=== PATIENT | female | born 1970 | race Caucasian/White ===

== ENCOUNTER 2018-01-30 13:17 | Outpatient (CLI) | payer OTHER ==
--- NOTE | 2018-01-30 16:19 | ULT ---
RIGHT BREAST ULTRASOUND: 01/30/18 HISTORY: Palpable mass at 6 o'clock position of the right breast. TECHNIQUE: Multiplanar jauregui scale and color doppler images were obtained in a targeted ultrasound of the 6 o'sayda ck position of the right breast. FINDINGS: Normal appearing breast parenchyma is seen. No suspicious mass or shadowing is seen. No cyst is ident ified. IMPRESSION: BIRADS 1: Negative Routine annual screening mammography (for women over age 40) POS: ELIZABETH
== END 2018-01-30 13:18 | disposition home or self-care (01) ==
LOC: BICMAMMO 13:17
PROVIDERS: ATTEND Family Medicine
DX: N63.11 Unspecified lump in the right breast, upper outer quadrant (principal); R92.1 Mammographic calcification found on diagnostic imaging of breast; Z80.3 Family history of malignant neoplasm of breast
CPT/HCPCS: 77066; G0279

== ENCOUNTER 2018-07-20 06:19 | Day surgery (SDC) | payer OTHER ==
[2018-07-17 12:22] VITALS: BMI 22.8
[2018-07-20] MEDS ORDERED: Fentanyl 100 MCG/2 ML VIAL ONE (07:23)
[2018-07-20] MEDS ORDERED: Midazolam HCl 2 mg/2 ml Vial ONE ×2 (07:23→08:51)
[2018-07-20] MEDS ORDERED: Nitroglycerin 100MG/250ML BOT 250 ML ONE (08:33)
[2018-07-20] MEDS ORDERED: Verapamil 5 MG/2 ML VIAL ONE (08:33)
[2018-07-20] MEDS ORDERED: Heparin 10,000 UNITS/1 ML VIAL ONE (08:33)
[2018-07-20] MEDS ORDERED: Iopamidol 370 76% 100 ML VIAL ONE (10:54)
--- NOTE | 2018-07-20 13:44 | DIS ---
DATE OF ADMISSION: 07/20/2018 DATE OF DISCHARGE: 07/20/2018 HISTORY OF PRESENT ILLNESS: She was admitted to undergo an elective cardiac catheterization as she continued to have chest discomfort despite having an indeterminate cardiac stress test. It did not show any significant ischemia, but there was some decreased radioactive tracer uptake in the anterior wall, and due to her continued complaints of chest discomfort, she was advised to undergo cardiac catheterization. She was taken to the cardiac chemical lab technician, where she underwent the procedure today and was found to have normal coronary arteries with a normal left ventricular systolic function. Her other diagnoses include hypertension and hypothyroidism. She does have some varicose veins in lower extremities. She also has anxiety. DISCHARGE MEDICATIONS: The same as her admission medications, which include: 1. Metoprolol 50 mg one b.i.d. 2. Xanax 0.5 mg as needed, one every 2 to 3 days. 3. Nexium 24-hour 20 mg tablet once a day. 4. Tirosint 75 mcg capsules once a day. 5. Butalbital/aspirin/caffeine 50/325/40 two tablets every 6 hours p.r.n., not to exceed 6 capsules in 24 hours. 6. Cyclobenzaprine 10 mg one daily. 7. Liothyronine sodium 5 mcg tablet, take three tablets every day. 8. Belviq XR 20 mg tablets one daily. 9. Zyrtec 10 mg daily. FOLLOWUP: Follow up will be with me in 1 to 2 months in the office. She will continue her routine followups with her primary care physician, Dr. Miller. PROCEDURES IN THE HOSPITAL: Cardiac catheterization, left ventriculogram, and coronary arteriography. HOSPITAL COURSE: As noted, this is a 48-year-old female who continued to have some chest discomfort despite having what appeared to be a nonischemic stress test. She did have some abnormalities with decreased radioactive uptake in the anterior wall, which seemed to have improved with stress. Due to her continued complaints of chest discomfort and history of hypertension, she was advised to undergo a cardiac catheterization. This was performed in the hospital today without difficulties or complication using a radial artery approach. There were no complications or difficulties encountered. The coronary arteries were found to be normal and the left ventricular systolic function also was normal. She remained stable. She will be discharged to home within the next 2 to 3 hours. Job ID: [id number] [facility]
--- NOTE | 2018-07-21 21:02 | EKG ---
Test Reason : PREOP Blood Pressure : / mmHG Vent. Rate : 065 BPM Atrial Rate : 065 BPM P-R Int : 166 ms QRS Dur : 084 ms QT Int : 404 ms P-R-T Axes : 037 044 054 degrees QTc Int : 420 ms Normal sinus rhythm Normal ECG When compared with ECG of 16-NOV-2014 15:41, No significant change was found Confirmed by DEYANIRA CAPPS, DR. Lea ([id number]) on 07/21/2018 9:01:58 PM Referred By: CHER Confirmed By:DR. Leonora MCMILLAN MD
== END 2018-07-20 12:38 | disposition home or self-care (01) ==
LOC: CCL 06:19
PROVIDERS: ATTEND Internal Medicine Cardiovascular Disease
PROC: B2101ZZ Fluoroscopy of Single Coronary Artery using Low Osmolar Contrast (ICD-10-PCS; principal; 2018-07-20)
PROC: 4A023N7 Measurement of Cardiac Sampling and Pressure, Left Heart, Percutaneous Approach (ICD-10-PCS; principal; 2018-07-20)
DX: R07.9 Chest pain, unspecified (principal); I10 Essential (primary) hypertension; I83.92 Asymptomatic varicose veins of left lower extremity; E78.00 Pure hypercholesterolemia, unspecified; Z91.09 Other allergy status, other than to drugs and biological substances; Z91.040 Latex allergy status; Z88.5 Allergy status to narcotic agent; Z79.899 Other long term (current) drug therapy
CPT/HCPCS: 93005; 93010; 93458; 99152; 99153; C1769; J1644; J2250; J3010; Q9967

== ENCOUNTER 2019-01-06 07:53 | Outpatient (CLI) | payer OTHER ==
--- NOTE | 2019-01-06 08:45 | CT ---
EXAM: CT chest, abdomen, and pelvis with IV contrast: HISTORY: Squamous cell carcinoma the anus. Bloody stool. COMPARISON: CT abdomen and pelvis on 04/05/2015 FINDINGS: CT THORAX: Lungs: There are minimal scattered areas of atelectasis versus scarring predominantly at each lung ba se. No discrete pulmonary nodule or mass is seen. Pleura: No pleural effusion. Lymph nodes: No lymphadenopathy. Mediastinum: Thoracic aorta is normal in caliber without evidence of an aortic dissection. Chest wall: There are 2 tiny punctate gas densities seen within the medial aspect of each breast of u ncertain etiology. CT ABDOMEN AND PELVIS: Liver: A 2.8 cm hypodense mass with nodular peripheral enhancement is again seen in the posterolatera l medial aspect of the right hepatic lobe suggesting a hemangioma. No additional lesions are seen in the liver. Gallbladder: Within normal limits. \ Pancreas: Within normal limits. Spleen: Within normal limits. Adrenal glands: Within normal limits. Kidneys: Within normal limits. Urinary Bladder: The urinary bladder is unremarkable. Reproductive organs: Evidence of hysterectomy. Bowel: Normal in caliber. Patient's reported anal neoplasm is not well visualized on this exam. Adenopathy:No lymphadenopathy within the abdomen or pelvis. There are low-density structures seen at the lateral aspect of the pelvis bilaterally which are probably related to the patient's ovaries as opposed to enlarged lymph nodes. Peritoneum: No free fluid or fluid collection is seen. No free intraperitoneal gas is identified. Abdominal wall: Tiny fat-containing umbilical hernia is present. Osseous structures: No suspicious lytic or sclerotic osseous lesions are identified. IMPRESSION: 1. No CT findings to suggest metastatic disease. 2. Findings likely related to a hemangioma in the right hepatic lobe. This was also present on prior exam in 2014. 3. Punctate gas densities within the medial aspect of each breast of uncertain etiology. 4. Hysterectomy.
== END 2019-01-06 07:54 | disposition home or self-care (01) ==
LOC: BICCT 07:53
PROVIDERS: ATTEND Internal Medicine
DX: C21.1 Malignant neoplasm of anal canal (principal); Z90.710 Acquired absence of both cervix and uterus; N64.89 Other specified disorders of breast
CPT/HCPCS: 71260; 74177

== ENCOUNTER 2019-01-14 12:00 | Outpatient (CLI) | payer OTHER ==
--- NOTE | 2019-01-14 15:43 | PET ---
EXAM: PET CT skull to mid thigh COMPARISON: CT chest abdomen pelvis 01/06/2019 HISTORY: Malignant neoplasm of the anal canal TECHNIQUE: A PET/CT was performed from the skull to the mid thigh after administration of 13.0 millic uries of F-18 FDG. Evaluation was performed on a [employer] workstation. FINDINGS: NECK: No areas of hypermetabolic activity CHEST: No areas of hypermetabolic activity ABDOMEN/PELVIS: Focal hypermetabolic activity is seen in the region of the anus with a max SUV value of 10.0. This likely represents the patient's known anal cancer. No other areas of hypermetabolic activity SKELETON: No areas of hypermetabolic activity CT images used for attenuation correction show no significant abnormality. IMPRESSION: Hypermetabolic activity in the anus represents the patient's known anal cancer. There is no evidence of metastatic disease.
== END 2019-01-14 12:01 | disposition home or self-care (01) ==
LOC: PET 12:00
PROVIDERS: ATTEND Internal Medicine Hematology & Oncology
DX: C21.1 Malignant neoplasm of anal canal (principal)
CPT/HCPCS: 36415; 78815; 80053; 82248; 83615; 84100; 84550; A9552

== ENCOUNTER 2019-01-19 05:54 | Day surgery (SDC) | payer OTHER ==
[2019-01-18 12:42] VITALS: BMI 21.7
--- NOTE | 2019-01-18 14:15 | HP ---
HISTORY OF PRESENT ILLNESS: Ms. Bridgett Hernandez is a 48-year-old female, seen by Dr. Miller, who referred to Dr. Nash for her complaints of perianal bleeding and discomfort. She thought this was hemorrhoids. Cologuard was positive. Colonoscopy revealed a perianal lesion. Biopsy squamous cell carcinoma with superficial invasion. She had a CAT scan of the abdomen and chest that is normal. A PET scan that was normal, except for perianal disease. 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 ALLERGIES: TRAMADOL, VICODIN CAUSES ITCHING AND TINGLING. SHE CAN HOWEVER TAKE TYLENOL NO.3. THE PATIENT IS ALLERGIC TO LATEX IN ADDITION. TOBACCO: None. ALCOHOL: None. MEDICATIONS: 1. Levothyroxine 75 mcg a day. 2. . 3. Metoprolol 50 mg b.i.d. 4. Nexium 20 mg daily. 5. Xanax 0.5 mg p.r.n. anxiety. 6. caffeine p.r.n. headache, migraine. 7. Zofran 8 mg p.r.n. 8. Flexeril 10 mg p.r.n. 9. Sumatriptan 50 mg p.r.n. headache. 10. Lasix 20 mg a day. PAST SURGICAL HISTORY: Breast reduction recently by Dr. Christina Bennett; rotator cuff, right, surgery; hysterectomy without oophorectomy, laparoscopic assisted vaginal, 2009. PAST MEDICAL HISTORY: Anxiety, GERD, hypertension, hypothyroidism, treated medically. REVIEW OF SYSTEMS: Ten-point noncontributory. The patient had a cardiac stress test with Dr. Hill in early 2018, that is normal. Echocardiogram was normal. PHYSICAL EXAMINATION: VITAL SIGNS: Weight 134 pounds, height 5 feet 6 inches, 21 BMI, blood pressure 129/72, pulse rate 82, temperature 98.6 degrees. HEAD, EYES, EARS, NOSE, AND THROAT: Unremarkable. LUNGS: Clear to auscultation. CARDIAC: Regular rate and rhythm. No murmur or gallop. ABDOMEN: Soft and nontender. Groins without lymphadenopathy. EXTREMITIES: Unremarkable. : I did not examine her perianal area. ASSESSMENT AND PLAN: 1. Squamous cell carcinoma of the anus. MediPort placement low-profile. She understands risks and benefits and consents. 2. Hypertension. 3. Gastroesophageal reflux disease. 4. Anxiety. 5. Status post recent breast reduction. Job ID: [id number]
[2019-01-19] MEDS ORDERED: Fentanyl 100 MCG/2 ML VIAL ONE (06:33)
[2019-01-19] MEDS ORDERED: Bupivacaine HCl 0.5%/Epinephrine 1:200,000/PF 30 ml Vial ONE (06:49)
[2019-01-19] MEDS ORDERED: Lidocaine 2% PF 5 ML VIAL ONE ×2 (06:49)
[2019-01-19] MEDS ORDERED: PROPOFOL 40 ML ONE (06:52)
[2019-01-19] MEDS ORDERED: Midazolam HCl 2 mg/2 ml Vial ONE (07:02)
--- NOTE | 2019-01-19 08:14 | RAD ---
Portable chest: HISTORY: Mediport placement COMPARISON: none FINDINGS: Lung sanz are clear. Heart and mediastinum appear unremarkable. Vascularity is normal. Visualized osseous structures unremarkable. Mediport catheter is been placed. The right subclavian vein. Tip of the line overlies the SVC. Cathet er appears in adequate position. IMPRESSION: No acute finding
--- NOTE | 2019-01-19 12:41 | OP ---
DATE OF PROCEDURE: 01/19/2019 PREOPERATIVE DIAGNOSIS: Anal cancer. POSTOPERATIVE DIAGNOSIS: Anal cancer. PROCEDURE PERFORMED: Right subclavian vein MediPort, fluoroscopy used, low-profile MediPort. ANESTHESIA: local of 0.5% Marcaine with epinephrine 30 mL mixed with 2% Xylocaine 10 mL. DESCRIPTION OF PROCEDURE: The patient was taken to the operating room, where under chest and neck were prepared with ChloraPrep and draped in routine fashion. Local anesthetic was infiltrated in the skin and subcutaneous tissue about the operative site. Infraclavicular approach was used to cannulate the right subclavian vein threading the J-wire, removing the trocar catheter, enlarging the skin site sharply, and creating a subcutaneous pocket to accommodate the MediPort. A low-profile MediPort was inserted by placing the dilator and Peel-Away sheath over the J-wire in the superior vena cava. Dilator and J-wire were removed. Catheter was placed over the Peel-Away sheath. Peel-Away sheath was removed. Fluoroscopically, catheter tip was placed in optimal position in the superior vena cava, and catheter was tailored to length, connected to the MediPort which was placed in the subcutaneous pocket, and secured with 2 interrupted suture of 3-0 Prolene. Subcutaneous tissue was approximated with 3-0 Monocryl, skin with subdermal 4-0 Monocryl. Final fluoroscopic images revealed good MediPort line placement. MediPort was accessed with a Lester needle aspirating blood and flushing with heparinized saline solution. The patient tolerated the procedure well. Job ID: [id number]
[2019-01-19] MEDS ORDERED: Ketorolac Tromethamine 30 MG/ML VIAL ONE (13:57)
[2019-01-19] MEDS ORDERED: PROPOFOL 200 MG/20 ML VIAL ONE (13:57)
[2019-01-19] MEDS ORDERED: Ondansetron PF 4 MG/2 ML Vial ONE (13:57)
[2019-01-19] MEDS ORDERED: Dexamethasone 20 MG/5 ML VIAL ONE (13:57)
== END 2019-01-19 08:50 | disposition home or self-care (01) ==
LOC: SDC 05:54
PROVIDERS: ATTEND Specialist
PROC: 05H533Z Insertion of Infusion Device into Right Subclavian Vein, Percutaneous Approach (ICD-10-PCS; principal; 2019-01-19)
DX: C21.0 Malignant neoplasm of anus, unspecified (principal); I10 Essential (primary) hypertension; E03.9 Hypothyroidism, unspecified; F41.9 Anxiety disorder, unspecified; K21.9 Gastro-esophageal reflux disease without esophagitis; Z79.899 Other long term (current) drug therapy; Z88.5 Allergy status to narcotic agent; Z91.040 Latex allergy status; Z91.048 Other nonmedicinal substance allergy status
CPT/HCPCS: 71045; C1788; J0131; J0670; J0690; J1100; J1642; J1885; J2001; J2250; J2405; J2704; J3010

== ENCOUNTER 2019-03-15 13:40 | Inpatient (IN) | payer OTHER ==
[2019-03-15] MEDS: Dextrose 5 % And 0.9 % NaCl 1,000 ML IV SCH (14:49)
[2019-03-15] MEDS: Lorazepam 2 MG/ML VIAL SLOW IVP PRN (14:56)
[2019-03-15] MEDS ORDERED: Morphine 2 MG/ML SYRINGE SLOW IVP PRN (15:56)
[2019-03-15] MEDS ORDERED: Acetaminophen 650 MG Suppository PR PRN (16:14)
[2019-03-15] MEDS ORDERED: Ondansetron ODT 4 MG TAB PO PRN ×2 (16:14→19:22)
[2019-03-15 16:17] LABS: #Lymphocytes 0.2 thou/uL (1.20-3.40); #Neutrophils 1.2 thou/uL (1.40-6.50); %Basophils 0.4 % (0.0-1.0); %Eosinophils 0.4 % (0.0-10.0); %Lymphocytes 11.8 % (21.0-51.0); %Monocytes 0.7 % (0.0-10.0); %Neutrophils 86.8 % (42.0-75.0); Hemoglobin 8.2 g/dL (12.0-16.0); Mean Corpuscular Hemoglobin 31.6 pg (27.0-31.0); Mean Corpuscular Volume 90.2 fL (78.0-98.0); Mean Platelet Volume 6.1 fL (7.4-10.4); Platelet Count 171 thou/uL (130-400); RBC Distribution Width 13.3 % (11.5-14.5); Red Blood Cell (RBC) Count 2.59 mill/uL (4.20-5.40); White Blood Cell (WBC) Count 1.4 thou/uL (4.8-10.8)
[2019-03-15] MEDS ORDERED: ALPRAZolam 0.5 MG TAB PO PRN (16:17)
[2019-03-15] MEDS ORDERED: Aquaphor 30 GM JAR TOP SCH (16:30)
[2019-03-15 16:39] LABS: ALT (SGPT) 30 U/L (8-55); AST (SGOT) 20 U/L (5-34); Albumin 2.8 g/dL (3.5-5.0); Alkaline Phosphatase 171 U/L (40-110); Anion Gap 10 mmol/L (10-20); BUN (Urea Nitrogen) 5 mg/dL (9.8-20.1); Bilirubin, Total 0.4 mg/dL (0.2-1.2); Calc. Creatinine Clearance 109 mL/min (70-130); Calcium 8.1 mg/dL (7.8-10.44); Carbon Dioxide 23 mmol/L (22-29); Chloride 105 mmol/L (98-107); Estimated GFR-MDRD Greater than 90; Globulin 2.4 g/dL (2.4-3.5); Glucose 158 mg/dL (70-105); Potassium 3.9 mmol/L (3.5-5.1); Protein, Total 5.2 g/dL (6.0-8.3); Sodium 134 mmol/L (136-145)
[2019-03-15] MEDS: Ondansetron PF 4 MG/2 ML Vial IVP PRN (16:59)
[2019-03-15 17:14] LABS: Lactic Acid 0.5 mmol/L (0.5-2.2)
--- NOTE | 2019-03-15 19:12 | RAD ---
PA AND LATERAL CHEST: HISTORY: Lower respiratory tract infection. FINDINGS: The heart size is normal. The lungs are well expanded without focal areas of consolidation, pneumotho races or pleural effusions. There is a right-sided Port-A-Cath. This was also seen on the exam of 04/2018. IMPRESSION: No radiographic evidence of acute cardiopulmonary process. POS: H
[2019-03-15 19:41] LABS: Bilirubin Negative (Negative); Blood, Urine Negative (Negative); Clarity Clear (Clear); Glucose, Urine (Dipstick) Normal (Negative); Leukocyte 75 Leu/uL (Negative); Nitrite Negative (Negative); Protein, Urine (Dipstick) Negative (Neg-Trace); RBC/HPF 0-3 HPF (0-3); Squamous Epithelial 0-3 HPF (0-3); Urobilinogen Normal mg/dL (Less than 2)
[2019-03-15 19:42] LABS: Bacteria/HPF 1+ HPF (None Seen)
[2019-03-15 19:43] LABS: Urine Culture Reflex Yes Yes
[2019-03-15] MEDS: Morphine 2 MG/ML SYRINGE SLOW IVP PRN ×2 (20:16→22:04)
[2019-03-15] MEDS: Promethazine HCl 25 MG/ML VIAL IM/IV PRN (20:16)
[2019-03-15] MEDS: Famotidine/PF 20 mg/2ml Vial SLOW IVP SCH (20:16)
[2019-03-15] MEDS: Hydrocortisone/Pramoxine (Proctofoam HC) 10 GM BOX PR SCH (20:17)
--- NOTE | 2019-03-15 20:45 | HP ---
TIME OF ASSESSMENT: 1500 hours. CHIEF COMPLAINT: Nausea, vomiting, and rectal pain. HISTORY OF PRESENT ILLNESS: Ms. Hernandez is a pleasant 49-year-old woman, who presents to the Emergency Department after being evaluated by Dr. Lo in clinic due to persisting nausea, vomiting, and suspected dehydration. The patient apparently has required multiple infusions of IV fluids due to persistent nausea and vomiting that has been ongoing since she started her treatment. She has known history of squamous cell carcinoma of the anus and has completed radiation therapy. She recently completed her last chemotherapy treatment as well and was receiving 5-FU, mitomycin. She states the 5-FU was disconnected on Friday. Over the weekend, the patient has been feeling increasingly worse. She states she vomited all of Friday and continued to vomit for almost 24 hours straight to the point that she had nothing else to vomit and was dry heaving excessively. Denies any hematemesis. Reports having loose stools as well. The patient states she was recently diagnosed with a urinary tract infection and was receiving oral antibiotic treatment with ciprofloxacin. She has not yet completed the Cipro. She denies having any urinary symptoms. The patient states she feels overall weak and tired. She has been sedentary in the last 2 to 3 days and for the last 24 hours has been mostly in bed. She has been feeling chills. Denies having any fevers. No cough or hemoptysis. Denies any chest pain. No abdominal pain, but does report significant pain associated with raw skin changes in the perirectal region due to radiation. She manages this with Aquaphor and cold rags. Denies having any blood in her stool. She has been feeling lightheaded and weak when standing. Her blood pressure has been on the lower side. Therefore, she was advised to hold her metoprolol, which she was recently started on for hypertension. PAST MEDICAL HISTORY: 1. Anal cancer. 2. Anxiety. 3. GERD. 4. Hypertension. 5. Hypothyroidism. PAST SURGICAL HISTORY: 1. Breast reduction. 2. Right rotator cuff surgery. 3. Hysterectomy without oophorectomy. 4. Laparoscopic-assisted vaginal. 5. Port-A-cath placement, right-sided. SOCIAL HISTORY: The patient denies any tobacco use, alcohol consumption, or illicit drug use. She lives with her . ALLERGIES: ADHESIVE, HYDROCODONE, AND LATEX. CURRENT MEDICATIONS: 1. Alprazolam. 2. Butalbital/aspirin/caffeine. 3. Ciprofloxacin. 4. Lomotil. 5. Esomeprazole. 6. Levothyroxine. 7. Ondansetron. 8. Aquaphor. 9. Tramadol. PHYSICAL EXAMINATION: GENERAL: The patient appears well-developed, well-nourished, and she is in no acute distress. VITAL SIGNS: Temperature 98.3, pulse 116, blood pressure 128/72, respirations 16, and O2 saturation 100% on room air. HEENT: Normocephalic and atraumatic. Pupils are equal, round, and reactive to light. The patient appears pale. Oropharynx is clear. NECK: Supple. LUNGS: Clear to auscultation bilaterally without wheezes, rales, or rhonchi. CARDIAC: Regular rate and rhythm without audible murmurs, rubs, or gallops. ABDOMEN: Soft, nontender, nondistended. Normoactive bowel sounds present. EXTREMITIES: No lower leg swelling or edema. RECTAL: Perirectal region notable for moist skin desquamation. No active bleeding or discharge. NEUROLOGIC: Alert and oriented x3. SKIN: Warm and dry. IMPRESSION AND PLAN: Ms. Hernandez is a 49-year-old woman with known anal cancer, being admitted for management of the following. 1. Persistent nausea, vomiting. The patient states this started after her 5-FU was disconnected. She states she does receive medications before chemo including steroids which help her feel better. However, once 5-FU pump is removed, she tends to have persistent nausea and vomiting. We will continue with antiemetics. Continue with IV fluids, given presumed dehydration from persistent vomiting. We will check electrolytes. If symptoms persist might consider imaging of the brain to rule out any possible brain metastases contributing to the persistent nausea, vomiting those seem to be associated with timing of treatment. 2. Presumed dehydration. Again, we will continue with IV fluids. We will check orthostatic blood pressures. 3. We will check labs including renal function. 4. Diarrhea. The patient has had persistent watery stools. She has been on antibiotics for urinary tract infection. We will obtain stool studies including Clostridium difficile, though it is also likely associated with her treatment. 5. Generalized weakness. Consultation placed to PT/OT. 6. Anal cancer. The patient has completed chemoradiation therapy. She does have skin changes due to radiation, which she usually manages with Aquaphor. We will add Proctofoam as well. 7. The patient states she is unable to tolerate most p.o. pain medications. We will give morphine 1 mg q.4 hours, but we will need to monitor her blood pressure which was low previously. 8. Gastrointestinal prophylaxis. Famotidine. 9. Urinary tract infection. The patient recently on Cipro. We will obtain urinalysis and urine culture. We will add lactic acid to her labs. Hold on any further antibiotics until we obtain urinalysis. The patient offered PureWick or Valente to help minimize contact of urine to her perirectal skin, which is irritated. The patient refused. 10. Hypothyroidism. We will resume home medications once verified. 11. Hypertension. In light of low blood pressures, we will hold for now. 12. Code status full. Surrogate decision maker is her , Patrick Hernandez. The patient's case discussed with attending who agrees with plan of care as described above. Job ID: [id number]
[2019-03-16] MEDS: Morphine 2 MG/ML SYRINGE SLOW IVP PRN ×3 (01:19→21:03)
[2019-03-16] MEDS: Dextrose 5 % And 0.9 % NaCl 1,000 ML IV SCH ×3 (01:23→19:38)
[2019-03-16] MEDS: Lorazepam 2 MG/ML VIAL SLOW IVP PRN ×3 (01:29→19:37)
[2019-03-16] MEDS: Levothyroxine Sodium 75 MCG TAB PO SCH (05:53)
[2019-03-16] MEDS: Liothyronine Sodium 5 MCG TAB PO SCH (05:59)
[2019-03-16] MEDS: Promethazine HCl 25 MG/ML VIAL IM/IV PRN ×3 (06:25→19:37)
[2019-03-16] MEDS: Famotidine/PF 20 mg/2ml Vial SLOW IVP SCH ×2 (08:22→19:38)
[2019-03-16] MEDS: Hydrocortisone/Pramoxine (Proctofoam HC) 10 GM BOX PR SCH ×3 (08:32→19:39)
[2019-03-16] MEDS ORDERED: cefTRIAXone Sodium 2 MG in Syringe 0 ML IVPB SCH (09:45)
[2019-03-16] MEDS ORDERED: cefTRIAXone\\ROCEPHIN 2 GM in Sodium Chloride 0.9% 100 ML IVPB SCH (10:00)
[2019-03-16] MEDS: Ondansetron PF 4 MG/2 ML Vial IVP PRN ×2 (10:33→16:56)
--- NOTE | 2019-03-16 12:15 | PDOC.MOPN ---
Interval History: marginally better - Vital Signs Vital Signs: Vital Signs (12 hours) Temp Pulse Resp BP BP BP Pulse Ox 03/16/19 07:47 98.6 F 97 16 106/65 106/65 106/69 100 03/16/19 04:00 98.6 F 97 16 111/66 100 Weight Weight 125 lb 6.4 oz - Physical Exam General: Alert, Oriented x3 Lungs: Clear to auscultation Cardiovascular: Regular rate Abdomen: Soft, No tenderness Extremities: No clubbing Skin: No rashes - Labs Result Diagrams: 03/15/19 16:02 03/15/19 16:02 Lab results: Laboratory Results - last 24 hr 03/15/19 18:37: Urine Color Light-Yellow, Urine Clarity Clear, Urine pH 6.5, Ur Specific [place] 1.009, Urine Protein Negative, Urine Glucose (UA) Normal, Urine Ketones 20 A, Urine Blood Negative, Urine Nitrite Negative, Urine Bilirubin Negative, Urine Urobilinogen Normal, Ur Leukocyte Esterase 75 A, Urine RBC 0-3, Urine WBC 7-10 A, Ur Squamous Epith Cells 0-3, Urine Bacteria 1+ A, Urine Culture Reflexed Yes A 03/15/19 16:42: Lactic Acid 0.5 03/15/19 16:02: WBC 1.4 L, RBC 2.59 L, Hgb 8.2 L, Hct 23.4 L, MCV 90.2, MCH 31.6 H, MCHC 35.0, RDW 13.3, Plt Count 171, MPV 6.1 L, Neutrophils % 86.8 H, Neutrophils % (Manual) Not Reportable, Lymphocytes % 11.8 L, Monocytes % 0.7, Eosinophils % 0.4, Basophils % 0.4, Neutrophils # 1.2 L, Lymphocytes # 0.2 L, Monocytes # 0.0 L, Eosinophils # 0.0, Basophils # 0.0 03/15/19 16:02: Sodium 134 L, Potassium 3.9, Chloride 105, Carbon Dioxide 23, Anion Gap 10, BUN 5 L, Creatinine 0.55 L, Estimated GFR (MDRD) Greater than 90 , Glucose 158 H, Calcium 8.1, Total Bilirubin 0.4, AST 20, ALT 30, Alkaline Phosphatase 171 H, Serum Total Protein 5.2 L, Albumin 2.8 L, Globulin 2.4, Albumin/Globulin Ratio 1.2 A/P - Problem (1) Vomiting Current Visit: Yes Code(s): R11.10 - VOMITING, UNSPECIFIED Status: Acute (2) Anal cancer Current Visit: Yes Code(s): C21.0 - MALIGNANT NEOPLASM OF ANUS, UNSPECIFIED Status: Acute (3) Diarrhea Current Visit: Yes Code(s): R19.7 - DIARRHEA, UNSPECIFIED Status: Acute - Plan Plan: 1. PPN and IVF 2. agree with [employer] dictated note 3. cont imodium 4. continue aquaphor and paste to anal skin, discuss with rad onc
[2019-03-16] MEDS: Amino Acids 4.25 %/Dextrose 5% 1,000 ML IV SCH (12:42)
[2019-03-16 15:13] VITALS: BMI 20.1
--- NOTE | 2019-03-16 15:55 | PDOC.HOSPP ---
- Subjective Subjective: Seen and examined in oncology unit. Patient not feeling much better or worse. Still with nausea and no appetite. Tried to keep some broth down. Patient states that ever since radiation was initiated in January she has progressively felt worse and worse. After first round chemotherapy she did have significant nausea and vomiting and states that it did not improve after any period of time. Patient on IV fluids for dehydration. Started antibiotics for urinary tract infection. Patient states that she was given ciprofloxacin for urinary tract infection however she was unable to keep this medication down and urinary tract infection was not adequately treated. Time was given for questions, All questions answered in detail. - Objective Vital Signs & Weight: Vital Signs (12 hours) Temp Pulse Resp BP BP BP BP 03/16/19 12:17 100.3 F H 118 H 18 120/64 03/16/19 09:00 98.6 F 97 16 106/65 03/16/19 08:00 98.6 F 97 16 106/65 03/16/19 07:47 98.6 F 97 16 106/65 106/65 106/69 03/16/19 04:00 98.6 F 97 16 111/66 Pulse Ox 03/16/19 12:17 100 03/16/19 09:00 100 03/16/19 08:00 100 03/16/19 07:47 100 03/16/19 04:00 100 Weight Admit Weight 125 lb 6.4 oz Weight 125 lb I&O: 03/15/19 03/16/19 03/17/19 06:59 06:59 06:59 Intake Total 120 Balance 120 Result Diagrams: 03/15/19 16:02 03/15/19 16:02 Radiology Reviewed by me: Yes Hospitalist ROS - Review of Systems All other systems reviewed; all pertinent +/- noted in HPI/Subj - Medication Medications: Active Medications Generic Name Dose Route Start Last Admin Trade Name Freq PRN Reason Stop Dose Admin Famotidine 20 mg 03/15/19 21:00 03/16/19 08:22 Pepcid SLOW IVP 20 mg Q12HR AC Administration Hydrocortisone/Pramoxine 0 gm 03/15/19 21:00 03/16/19 15:45 Proctofoam Hc SD Not Given TID AC Dextrose/Sodium Chloride 1,000 mls @ 100 mls/hr 03/15/19 14:30 03/16/19 12:56 D5 0.9% Ns IV 1,000 mls .Q10H AC Administration Ceftriaxone Sodium 2 gm/ 100 mls @ 200 mls/hr 03/16/19 10:00 03/16/19 12:53 Sodium Chloride IVPB 100 mls Q24HR AC Administration Amino Acids/Dextrose 1,000 mls @ 75 mls/hr 03/16/19 10:15 03/16/19 12:42 Clinimix 4.25/5 IV 1,000 mls INF AC Administration Levothyroxine Sodium 75 mcg 03/16/19 06:00 03/16/19 05:53 Synthroid PO 75 mcg 0600 AC Administration Liothyronine Sodium 15 mcg 03/16/19 09:00 03/16/19 05:59 Cytomel PO 15 mcg QAM AC Administration Lorazepam 0.5 mg 03/15/19 14:29 03/16/19 10:40 Ativan SLOW IVP 0.5 mg Q8H PRN Administration Nausea Mineral Oil/White Petrolatum 0 gm 03/15/19 19:15 03/16/19 08:23 Aquaphor 99 Gm TOP 1 gm ASDIR AC Administration Morphine Sulfate 1 mg 03/15/19 19:38 03/16/19 05:52 Morphine SLOW IVP 1 mg Q2H PRN Administration Severe Pain (7-10) Ondansetron HCl 4 mg 03/15/19 16:14 03/16/19 10:33 Zofran IVP 4 mg Q6H PRN Administration Nausea/Vomiting Promethazine HCl 25 mg 03/15/19 19:23 03/16/19 12:53 Phenergan IM/IV 25 mg Q6H PRN Administration Nausea/Vomiting - Exam General Appearance: awake alert, ill appearing Eye: PERRL ENT: normocephalic atraumatic, moist mucosa Neck: supple, symmetric, no lymphadenopathy Heart: no murmur, no gallops, no rubs Respiratory: CTAB, no wheezes, no rales, no ronchi Gastrointestinal: soft, non-tender, non-distended, no guarding, no rigidity Extremities: no clubbing, no edema Skin: no lesions, no rashes Skin - other findings: exam deferred - patient to be seen by wound care for perineum skin break Neurological: cranial nerve grossly intact, no focal deficits Musculoskeletal: generalized weakness Psychiatric: normal affect, A&O x 3 Hosp A/P (1) UTI (urinary tract infection) Status: Acute (2) HTN (hypertension) Code(s): I10 - ESSENTIAL (PRIMARY) HYPERTENSION Status: Acute (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, UNSPECIFIED Status: Acute (4) Diarrhea Code(s): R19.7 - DIARRHEA, UNSPECIFIED Status: Acute (5) Vomiting Code(s): R11.10 - VOMITING, UNSPECIFIED Status: Acute - Plan Plan: medical oncology unit oncology consultation, recommendations appreciated IV fluid resuscitation IV antibiotics for urinary tract infection De escalate to culture and sensitivity when able symptomatic therapy for nausea and vomiting status post chemotherapy - times two status post radiation therapy skin breakdown the perineum s/p radiation, wound care consultation eval and treat continue with her home medications as able DVT prophylaxis G.I. prophylaxis
[2019-03-16] MEDS: Loperamide HCl 2 MG CAP PO PRN (20:28)
[2019-03-16] MEDS ORDERED: Sodium Chloride 0.9% 500 ML IV SCH (20:45)
--- NOTE | 2019-03-16 20:51 | CON ---
DATE OF CONSULTATION: REASON FOR CONSULT: Anal squamous cell carcinoma. HISTORY OF PRESENT ILLNESS: Ms. Hernandez is a 49-year-old female, who was diagnosed with squamous cell carcinoma of the anus. She was started on mitomycin and 5-FU and radiation in January. She has received one dose of mitomycin and 5-FU on February 01. She has been on radiation since that time and has recently completed it. She has struggled with nausea, abdominal pain and diarrhea throughout treatment. She has been in our clinic 2-3 times weekly, receiving IV hydration and IV nausea medicines. She has tried Zofran, Phenergan, Compazine, meclizine for nausea. She has also had lorazepam and Xanax, none of which has adequately controlled her symptoms. She had her second cycle of reduced dose mitomycin and 5-FU on March 08. She was seen in our clinic last Friday and once again on Friday for recurrent nausea and vomiting. She continues to have mouth sores, although less than with cycle one. She had some chills, but no fever. She was not eating or drinking at all and unable to keep her antibiotics or pain medication down. She did receive IV fluids in our office and decision was made to admit her for further treatment. Her white count on admission yesterday was 1.4, hemoglobin was 8.2, and platelet count was 171. She did have some hyponatremia with sodium of 134. She had 1+ bacteria in her urine. PAST MEDICAL HISTORY: 1. Squamous cell carcinoma of the anus, status post chemo radiation. 2. Hypertension. 3. Anxiety and depression. 4. Thyroid disease. 5. Acid reflux. PAST SURGICAL HISTORY: 1. Hysterectomy. 2. Right shoulder surgery. 3. Breast reduction. ALLERGIES: NO KNOWN DRUG ALLERGIES. HOME MEDICATIONS: 1. Xanax. 2. Butalbital. 3. Lomotil. 4. Nexium. 5. Synthroid. 6. Cytomel. 7. Zofran. 8. Aquaphor. 9. Tramadol. FAMILY HISTORY: Mother had uterine cancer. Grandfather had lung cancer. SOCIAL HISTORY: , has 3 children. Lives with her spouse. No alcohol, tobacco, or illicit drug use. REVIEW OF SYSTEMS: Positive for fatigue, weight loss, nausea, abdominal pain, and diarrhea. PHYSICAL EXAMINATION: VITAL SIGNS: Temperature is 100.3, pulse is 118, respiratory rate 18, BP is 120/64. She is 100% on room air. GENERAL: This is a chronically ill-appearing female, in mild distress. HEENT: Normocephalic, atraumatic. Pupils are equal and reactive to light. NECK: Supple. CV: Regular rate and rhythm. She is tachycardic. LUNGS: Clear. ABDOMEN: Soft and nontender. Bowel sounds are positive. EXTREMITIES: No clubbing, cyanosis, or edema. SKIN: No rash. HEMATOLOGICAL: No petechiae or purpura. NEUROLOGICAL: Nonfocal. She is alert, oriented, and appropriate. PERTINENT LABS AND X-RAYS: Current WBCs 1.4, hemoglobin 8.2, hematocrit 23.4, platelet count 171,000. She has 86% neutrophils. Sodium 134, potassium 3.9, chloride is 105, CO2 is 23, BUN is 5, creatinine 0.55, lactic acid is 0.5, calcium 8.1, bilirubin 0.4, AST is 20, ALT is 30, alkaline phosphatase is 171. Serum total protein is 5.2, albumin 2.8, globulin 2.4. Urine showed 1+ bacteria, positive leukocyte esterase. ASSESSMENT: 1. Squamous cell carcinoma of the anus, status post chemo radiation. 2. Protracted nausea and vomiting. 3. Diarrhea secondary to treatment. 4. Likely urinary tract infection. 5. Skin breakdown of perineum secondary to radiation. DISCUSSION: The patient will be started on PPN and will continue IV fluids. She has been given Zofran and lorazepam for nausea. We continue IV hydration. She has received antibiotics for possible UTI. I would recommend continuing Aquaphor or paste to her perineum area. We will follow her hospital course closely. Thank you for the consult. Job ID: [id number]
[2019-03-16] MEDS ORDERED: Sodium Chloride 0.9% 1,000 ML IV SCH (21:45)
[2019-03-16 22:09] LABS: Hemoglobin 7.6 g/dL (12.0-16.0); Mean Corpuscular HGB CONC 34.8 g/dL (32.0-36.0); Mean Corpuscular Hemoglobin 31.9 pg (27.0-31.0); Mean Corpuscular Volume 91.7 fL (78.0-98.0); Mean Platelet Volume 6.4 fL (7.4-10.4); Platelet Count 150 thou/uL (130-400); RBC Distribution Width 13.2 % (11.5-14.5); Red Blood Cell (RBC) Count 2.38 mill/uL (4.20-5.40); White Blood Cell (WBC) Count 0.8 thou/uL (4.8-10.8)
[2019-03-16 22:22] LABS: ALT (SGPT) 23 U/L (8-55); AST (SGOT) 21 U/L (5-34); Albumin 2.6 g/dL (3.5-5.0); Alkaline Phosphatase 172 U/L (40-110); Anion Gap 10 mmol/L (10-20); BUN (Urea Nitrogen) 8 mg/dL (9.8-20.1); Bilirubin, Total 0.5 mg/dL (0.2-1.2); Calc. Creatinine Clearance 92 mL/min (70-130); Calcium 7.7 mg/dL (7.8-10.44); Carbon Dioxide 24 mmol/L (22-29); Chloride 106 mmol/L (98-107); Estimated GFR-MDRD Greater than 90; Globulin 2.4 g/dL (2.4-3.5); Glucose 116 mg/dL (70-105); Magnesium 1.5 mg/dL (1.6-2.6); Potassium 3.5 mmol/L (3.5-5.1); Sodium 136 mmol/L (136-145)
[2019-03-16 22:24] LABS: Band 10 % (5-11); Lymphocytes 18 % (21-51); MDiff Complete? YES; Monocytes 2 % (0-10); Neutrophil 70 % (42-75); Platelet Morphology Comment Appears Adequate
[2019-03-16] MEDS: Acetaminophen 325 MG TAB PO PRN (22:31)
[2019-03-16] MEDS ORDERED: diphenhydrAMINE 25 MG CAP PO PRN (23:10)
[2019-03-16] MEDS ORDERED: Vancomycin HCl 1 GM in Premix Bag 1 BAG IVPB SCH (23:15)
[2019-03-16] MEDS ORDERED: Magnesium Sulfate 4 GM in Sodium Chloride 0.9% 250 ML 250 ML IVPB SCH (23:30)
[2019-03-16] MEDS: Cefepime 2 GM in Sodium Chloride 0.9% 100 ML IVPB SCH (23:30)
[2019-03-16] MEDS ORDERED: Vancomycin HCl 1.25 GM in Sodium Chloride 0.9% 250 ML 250 ML IVPB SCH (23:30)
[2019-03-17] MEDS: Promethazine HCl 25 MG/ML VIAL IM/IV PRN ×2 (01:15→20:54)
[2019-03-17] MEDS: Lorazepam 2 MG/ML VIAL SLOW IVP PRN ×3 (01:15→16:37)
[2019-03-17] MEDS ORDERED: Hydrocortisone 2.5%/Pramoxine 1% CRM 30 GM TUBE PR PRN (03:38)
[2019-03-17] MEDS: Amino Acids 4.25 %/Dextrose 5% 1,000 ML IV SCH ×2 (04:07→20:52)
[2019-03-17] MEDS: Levothyroxine Sodium 75 MCG TAB PO SCH (06:26)
[2019-03-17] MEDS: Morphine 2 MG/ML SYRINGE SLOW IVP PRN ×3 (09:19→20:53)
[2019-03-17] MEDS: Ondansetron PF 4 MG/2 ML Vial IVP PRN ×3 (09:21→22:27)
[2019-03-17] MEDS: Cefepime 2 GM in Sodium Chloride 0.9% 100 ML IVPB SCH ×2 (09:37→15:45)
[2019-03-17] MEDS: Vancomycin HCl 750 MG in Sodium Chloride 0.9% 250 ML 250 ML IVPB SCH ×2 (09:43→22:26)
[2019-03-17] MEDS: Famotidine/PF 20 mg/2ml Vial SLOW IVP SCH ×2 (09:44→20:55)
[2019-03-17] MEDS: Liothyronine Sodium 5 MCG TAB PO SCH (09:44)
[2019-03-17] MEDS: Hydrocortisone/Pramoxine (Proctofoam HC) 10 GM BOX PR SCH ×3 (09:45→21:20)
[2019-03-17] MEDS: Acetaminophen 325 MG TAB PO PRN ×2 (10:00→23:23)
[2019-03-17] MEDS: Dextrose 5 % And 0.9 % NaCl 1,000 ML IV SCH ×2 (10:10→20:51)
--- NOTE | 2019-03-17 11:00 | PDOC.MOPN ---
Interval History: moved to [facility] for tachycardia. States has occasional SOB. + abd discomfort - Vital Signs Vital Signs: Vital Signs (12 hours) Temp Pulse Resp BP BP Pulse Ox 03/17/19 04:00 98.5 F 86 20 110/64 100 03/17/19 01:51 98.6 F 123 H 16 120/73 100 03/16/19 23:55 99.4 F 133 H 16 115/65 100 Weight Admit Weight 125 lb 6.4 oz Weight 125 lb - Physical Exam General: Alert, Oriented x3, No acute distress HEENT: Atraumatic, PERRLA, EOMI, Mucous membr. moist/pink Lungs: Clear to auscultation, Normal air movement Cardiovascular: Regular rate, Normal S1, Normal S2, No murmurs, Gallops, Rubs Abdomen: Other (mild tenderness) Extremities: No clubbing, No cyanosis, No edema, Normal pulses, No tenderness/ swelling Skin: No breakdown (has breakdown in perineum) Neurological: Normal speech - Labs Result Diagrams: 03/16/19 21:44 03/16/19 21:44 Lab results: Laboratory Results - last 24 hr 03/16/19 21:44: Troponin I Less than 0.010 03/16/19 21:44: WBC 0.8 L*, RBC 2.38 L, Hgb 7.6 L, Hct 21.8 L, MCV 91.7, MCH 31.9 H, MCHC 34.8, RDW 13.2, Plt Count 150, MPV 6.4 L, Neutrophils % (Manual) 70 , Band Neuts % (Manual) 10, Lymphocytes % (Manual) 18 L, Monocytes % (Manual) 2 , Neutrophils # Not Reportable, Lymphocytes # Not Reportable, Plt Morphology Comment Appears Adequate 03/16/19 21:44: Sodium 136, Potassium 3.5, Chloride 106, Carbon Dioxide 24, Anion Gap 10, BUN 8 L, Creatinine 0.65, Estimated GFR (MDRD) Greater than 90, Glucose 116 H, Calcium 7.7 L, Magnesium 1.5 L, Total Bilirubin 0.5, AST 21, ALT 23, Alkaline Phosphatase 172 H, Serum Total Protein 5.0 L, Albumin 2.6 L, Globulin 2.4, Albumin/Globulin Ratio 1.1 L Status: lab reviewed by me A/P - Problem (1) Neutropenia Current Visit: Yes Code(s): D70.9 - NEUTROPENIA, UNSPECIFIED Status: Acute (2) Anal cancer Current Visit: Yes Code(s): C21.0 - MALIGNANT NEOPLASM OF ANUS, UNSPECIFIED Status: Acute (3) Diarrhea Current Visit: Yes Code(s): R19.7 - DIARRHEA, UNSPECIFIED Status: Acute (4) UTI (urinary tract infection) Current Visit: Yes Status: Acute (5) Vomiting Current Visit: Yes Code(s): R11.10 - VOMITING, UNSPECIFIED Status: Acute - Plan Plan: 1. PPN and IVF 2. continue ABX 3. check CTA for PE 4. continue aquaphor and paste to anal skin, discuss with rad onc 5. discussed with Dr. Lo.
[2019-03-17] MEDS ORDERED: Iopamidol 370 76% 50 ML VIAL FS ONE (11:20)
--- NOTE | 2019-03-17 11:52 | CT ---
CT ANGIOGRAM THORAX WITH IV CONTRAST AND 3-D RECONSTRUCTIONS CLINICAL INDICATION: Shortness breath and tachycardia. COMPARISON: CT thorax on 05/08/2018 FINDINGS: Pulmonary arteries: There is a filling defect seen within a subsegmental right lower lobe pulmonary a rtery. This is compatible with a pulmonary embolus. No additional filling defects are seen in the remainder of the pulmonary arteries to suggest additional pulmonary emboli. Aorta: The aorta is normal in caliber without evidence of an aortic dissection. Lungs: There is dependent atelectasis bilaterally. No consolidation, pleural effusion, pulmonary nodu le or mass is seen in the lungs bilaterally. Mediastinum: A right subclavian Mediport catheter is now noted in place with the tip at the level of the caval atrial junction. A small pericardial effusion is identified which was not seen on prior study. No mediastinal lymphadenopathy is appreciated. Thyroid gland: Incompletely imaged on this exam but where seen has a grossly normal appearance. Osseous structures: No acute process. Chest wall: No abnormality visualized. Upper abdomen: The hypodense lesion in the right hepatic lobe with discontinuous peripheral nodular e nhancement is again present and likely represents a hemangioma similar to prior exam. IMPRESSION: 1. Pulmonary embolus involving a subsegmental right lower lobe pulmonary artery. 2. Small pericardial effusion which has developed in the interim. 3. Findings most compatible with a hemangioma in the right hepatic lobe. 4. Above findings were discussed with RICK Conteh, on 03/17/2019 at 1149 hours.
[2019-03-17] MEDS: Diphenoxylate HCl/Atropine Tablet PO PRN (15:43)
[2019-03-17] MEDS: Loperamide HCl 2 MG CAP PO PRN (16:20)
[2019-03-17] MEDS ORDERED: Hydrocortisone Acetate 25 MG Suppository FS PRN (17:11)
--- NOTE | 2019-03-17 17:33 | PDOC.HOSPP ---
- Subjective Subjective: Seen and examined. Patient's only complaint to me is persistent nausea and skin irritation of the premium which is chronic. Patient upgraded to medical unit telemetry for tachycardia. Patient was shortness of breath underwent CT angiography of the chest which was found to be abnormal for pulmonary embolism. Patient started on IV anticoagulation. - Objective Vital Signs & Weight: Vital Signs (12 hours) Temp Pulse Resp BP BP Pulse Ox 03/17/19 16:30 98.1 F 111 H 20 106/56 L 100 03/17/19 12:18 98.8 F 108 H 20 110/65 95 03/17/19 08:40 100 F H 113 H 20 115/77 95 03/17/19 07:35 95 Weight Admit Weight 125 lb 6.4 oz Weight 125 lb I&O: 03/16/19 03/17/19 03/18/19 06:59 06:59 06:59 Intake Total 120 1637 Balance 120 1637 Result Diagrams: 03/16/19 21:44 03/16/19 21:44 Radiology Reviewed by me: Yes Hospitalist ROS - Review of Systems All other systems reviewed; all pertinent +/- noted in HPI/Subj - Medication Medications: Active Medications Generic Name Dose Route Start Last Admin Trade Name Freq PRN Reason Stop Dose Admin Acetaminophen 650 mg 03/15/19 16:14 03/17/19 10:00 Tylenol PO 650 mg Q4H PRN Administration Headache/Fever/Mild Pain (1-3) Diphenhydramine HCl 25 mg 03/16/19 23:10 03/16/19 23:25 Benadryl PO 03/17/19 23:11 25 mg ONE PRN Administration Itching & Insomnia Diphenoxylate HCl/Atropine 2 tab 03/15/19 16:17 03/17/19 15:43 Lomotil PO 2 tab QID PRN Administration Diarrhea/Loose Stools Famotidine 20 mg 03/15/19 21:00 03/17/19 09:44 Pepcid SLOW IVP 20 mg Q12HR AC Administration Hydrocortisone/Pramoxine 0 gm 03/15/19 21:00 03/17/19 16:06 Proctofoam Hc [place] Not Given TID AC Dextrose/Sodium Chloride 1,000 mls @ 100 mls/hr 03/15/19 14:30 03/17/19 10:10 D5 0.9% Ns IV 1,000 mls .Q10H AC Administration Amino Acids/Dextrose 1,000 mls @ 75 mls/hr 03/16/19 10:15 03/17/19 04:07 Clinimix 4.25/5 IV 1,000 mls INF AC Administration Cefepime HCl 2 gm/ Sodium 100 mls @ 200 mls/hr 03/16/19 23:59 03/17/19 15:45 Chloride IVPB 100 mls 0800,1600,2359 AC Administration Vancomycin HCl 750 mg/ Sodium 250 mls @ 250 mls/hr 03/17/19 10:00 03/17/19 09 :43 Chloride IVPB 250 mls 1000,2200 AC Administration Levothyroxine Sodium 75 mcg 03/16/19 06:00 03/17/19 06:26 Synthroid PO 75 mcg 0600 AC Administration Liothyronine Sodium 15 mcg 03/16/19 09:00 03/17/19 09:44 Cytomel PO 15 mcg QAM AC Administration Loperamide HCl 2 mg 03/16/19 19:53 03/17/19 16:20 Imodium PO 03/17/19 19:54 2 mg ONE PRN Administration Diarrhea/Loose Stools Lorazepam 0.5 mg 03/15/19 14:29 03/17/19 16:37 Ativan SLOW IVP 0.5 mg Q8H PRN Administration Nausea Mineral Oil/White Petrolatum 0 gm 03/15/19 19:15 03/16/19 08:23 Aquaphor 99 Gm TOP 1 gm ASDIR AC Administration Morphine Sulfate 1 mg 03/15/19 19:38 03/17/19 15:59 Morphine SLOW IVP 1 mg Q2H PRN Administration Severe Pain (7-10) Ondansetron HCl 4 mg 03/15/19 16:14 03/17/19 15:43 Zofran IVP 4 mg Q6H PRN Administration Nausea/Vomiting Promethazine HCl 25 mg 03/15/19 19:23 03/17/19 01:15 Phenergan IM/IV 25 mg Q6H PRN Administration Nausea/Vomiting Sodium Chloride 10 ml 03/16/19 21:00 03/17/19 09:45 Flush - Normal Saline IVF 10 ml Q12HR AC Administration - Exam General Appearance: NAD, awake alert Eye: PERRL ENT: normocephalic atraumatic, moist mucosa Neck: supple, symmetric, no lymphadenopathy Heart: no murmur, no gallops, no rubs Heart - other findings: sinus tachycardia Respiratory: CTAB, no wheezes, no rales, no ronchi, normal chest expansion Gastrointestinal: soft, non-tender, no guarding, no rigidity Extremities: no edema Skin: no lesions, no rashes Neurological: cranial nerve grossly intact, normal sensation to touch, no focal deficits Musculoskeletal: generalized weakness, diffuse muscle atrophy Psychiatric: normal affect, A&O x 3 Hosp A/P (1) UTI (urinary tract infection) Status: Acute (2) HTN (hypertension) Code(s): I10 - ESSENTIAL (PRIMARY) HYPERTENSION Status: Acute (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, UNSPECIFIED Status: Acute (4) Diarrhea Code(s): R19.7 - DIARRHEA, UNSPECIFIED Status: Acute (5) Vomiting Code(s): R11.10 - VOMITING, UNSPECIFIED Status: Acute - Plan Plan: medical oncology unit oncology consultation, recommendations appreciated CTA chest abnormal for PE Full dose lovenox Will need transition to oral anticoagulation, a full 6 month course required Hypercoagulable state from CA Needs to increase motility IV fluid resuscitation with nutrition supplementation - On Clinimix Neutropenic precautions IV antibiotics for urinary tract infection Fever improving De escalate to culture and sensitivity when able symptomatic therapy for nausea and vomiting status post chemotherapy - times two status post radiation therapy skin breakdown the perineum s/p radiation, wound care consultation eval and treat continue with her home medications as able DVT prophylaxis G.I. prophylaxis Appears clinically depressed, tried to encourage patient to stay positive, offered mood stabilizing medication which she will think about
[2019-03-17 18:35] LABS: Hemoglobin 6.5 g/dL (12.0-16.0); Platelet Count 111 thou/uL (130-400)
[2019-03-17 18:58] LABS: Calc. Creatinine Clearance 115 mL/min (70-130); Estimated GFR-MDRD Greater than 90
[2019-03-17] MEDS ORDERED: Benzonatate 100 MG CAP PO PRN (19:21)
[2019-03-17] MEDS ORDERED: Melatonin 3 MG TAB PO PRN (19:21)
[2019-03-17] MEDS ORDERED: Docusate 100 MG CAP PO SCH (19:30)
[2019-03-17] MEDS: Enoxaparin Sodium 60 MG/0.6 ML SYRINGE SC SCH (20:53)
[2019-03-18] MEDS: Lorazepam 2 MG/ML VIAL SLOW IVP PRN ×2 (00:54→22:00)
[2019-03-18] MEDS: Cefepime 2 GM in Sodium Chloride 0.9% 100 ML IVPB SCH ×3 (00:55→17:15)
[2019-03-18] MEDS: Promethazine HCl 25 MG/ML VIAL IM/IV PRN ×3 (03:30→18:33)
[2019-03-18] MEDS: Morphine 2 MG/ML SYRINGE SLOW IVP PRN (03:31)
[2019-03-18] MEDS: Acetaminophen 325 MG TAB PO PRN ×2 (03:31→09:30)
[2019-03-18] MEDS: Diphenoxylate HCl/Atropine Tablet PO PRN (03:37)
[2019-03-18] MEDS: Ondansetron PF 4 MG/2 ML Vial IVP PRN ×3 (06:25→20:27)
[2019-03-18] MEDS: Levothyroxine Sodium 75 MCG TAB PO SCH (06:26)
[2019-03-18] MEDS ORDERED: Morphine 2 MG/ML SYRINGE SLOW IVP PRN (08:15)
[2019-03-18] MEDS: Enoxaparin Sodium 60 MG/0.6 ML SYRINGE SC SCH ×2 (09:29→22:01)
[2019-03-18] MEDS: Famotidine/PF 20 mg/2ml Vial SLOW IVP SCH ×2 (09:29→20:27)
[2019-03-18] MEDS: Vancomycin HCl 750 MG in Sodium Chloride 0.9% 250 ML 250 ML IVPB SCH (09:30)
[2019-03-18] MEDS: Hydrocortisone/Pramoxine (Proctofoam HC) 10 GM BOX PR SCH ×3 (09:31→20:27)
[2019-03-18] MEDS: oxyCODONE/Acetaminophen 5 mg/325 mg Tablet PO PRN (09:42)
[2019-03-18 10:51] LABS: Hemoglobin 6.4 g/dL (12.0-16.0); Mean Corpuscular HGB CONC 35.8 g/dL (32.0-36.0); Mean Corpuscular Hemoglobin 32.5 pg (27.0-31.0); Mean Corpuscular Volume 90.8 fL (78.0-98.0); Mean Platelet Volume 6.6 fL (7.4-10.4); Platelet Count 90 thou/uL (130-400); RBC Distribution Width 13.4 % (11.5-14.5); Red Blood Cell (RBC) Count 1.98 mill/uL (4.20-5.40); White Blood Cell (WBC) Count 0.5 thou/uL (4.8-10.8)
[2019-03-18 11:01] LABS: Vancomycin, Trough 5.8 ug/mL
[2019-03-18 11:05] LABS: ALT (SGPT) 18 U/L (8-55); AST (SGOT) 15 U/L (5-34); Albumin 2.2 g/dL (3.5-5.0); Alkaline Phosphatase 173 U/L (40-110); Anion Gap 5 mmol/L (10-20); BUN (Urea Nitrogen) 11 mg/dL (9.8-20.1); Bilirubin, Total 0.5 mg/dL (0.2-1.2); Calc. Creatinine Clearance 130 mL/min (70-130); Calcium 7.4 mg/dL (7.8-10.44); Carbon Dioxide 24 mmol/L (22-29); Chloride 108 mmol/L (98-107); Estimated GFR-MDRD Greater than 90; Globulin 2.1 g/dL (2.4-3.5); Glucose 118 mg/dL (70-105); Protein, Total 4.3 g/dL (6.0-8.3); Sodium 134 mmol/L (136-145)
[2019-03-18 11:16] LABS: Potassium 2.7 mmol/L (3.5-5.1)
[2019-03-18 11:22] LABS: Platelet Morphology Comment Appears Decreased
[2019-03-18] MEDS: Amino Acids 4.25 %/Dextrose 5% 1,000 ML IV SCH (12:01)
[2019-03-18] MEDS: Dextrose 5 % And 0.9 % NaCl 1,000 ML IV SCH ×2 (12:01→18:27)
--- NOTE | 2019-03-18 12:05 | PDOC.MOPN ---
Interval History: Pt c/o continued perineum pain, nausea, and vomiting, last vomited at 1030am. Also fatigue. SOB is improved. No CP. - Vital Signs Vital Signs: Vital Signs (12 hours) Temp Pulse Resp BP Pulse Ox 03/18/19 11:15 99.6 F 115 H 20 110/64 100 03/18/19 07:30 97.8 F 112 H 20 127/67 95 03/18/19 03:15 98.3 F 107 H 20 104/75 99 03/18/19 01:01 101.7 F H Weight Admit Weight 125 lb 6.4 oz Weight 125 lb - Physical Exam General: Alert, Oriented x3, Cooperative HEENT: Atraumatic, EOMI Lungs: Normal air movement Skin: No rashes (perineum exam deferred) Neurological: Cranial nerves 3-12 NL Psych/Mental Status: Other (depressed) - Labs Result Diagrams: 03/18/19 09:46 03/18/19 09:46 Lab results: Laboratory Results - last 24 hr 03/18/19 09:46: WBC 0.5 L*, RBC 1.98 L, Hgb 6.4 L, Hct 17.9 L, MCV 90.8, MCH 32.5 H, MCHC 35.8, RDW 13.4, Plt Count 90 L, MPV 6.6 L, Neutrophils % (Manual) Not Reportable, Plt Morphology Comment Appears Decreased L 03/18/19 09:46: Sodium 134 L, Potassium 2.7 L*, Chloride 108 H, Carbon Dioxide 24, Anion Gap 5 L, BUN 11, Creatinine 0.46 L, Estimated GFR (MDRD) Greater than 90, Glucose 118 H, Calcium 7.4 L, Total Bilirubin 0.5, AST 15, ALT 18, Alkaline Phosphatase 173 H, Serum Total Protein 4.3 L, Albumin 2.2 L, Globulin 2.1 L, Albumin/Globulin Ratio 1.0 L 03/18/19 09:46: Vancomycin Trough 5.8 03/17/19 18:21: Hgb 6.5 L, Hct 18.1 L, Plt Count 111 L 03/17/19 18:21: Creatinine 0.52 L, Estimated GFR (MDRD) Greater than 90 A/P - Problem (1) Anal cancer Current Visit: Yes Code(s): C21.0 - MALIGNANT NEOPLASM OF ANUS, UNSPECIFIED Status: Acute (2) Neutropenia Current Visit: Yes Code(s): D70.9 - NEUTROPENIA, UNSPECIFIED Status: Acute (3) Vomiting Current Visit: Yes Code(s): R11.10 - VOMITING, UNSPECIFIED Status: Acute - Plan Plan: 1. PPN and IVF 2. continue ABX 3. cont Lovenox for now, change to DOAC for discharge 4. continue aquaphor and paste to anal skin 5. cont antiemetics 6. transufse 2 units PRBC today
[2019-03-18] MEDS: Liothyronine Sodium 5 MCG TAB PO SCH (12:26)
[2019-03-18] MEDS: Potassium Chloride 20 MEQ TAB PO SCH ×2 (12:28→18:27)
[2019-03-18] MEDS ORDERED: Vancomycin HCl 500 MG in Sodium Chloride 0.9% 100 ML IVPB SCH (12:30)
[2019-03-18] MEDS: Morphine 4 MG/ML VIAL SLOW IVP PRN ×2 (12:30→18:32)
--- NOTE | 2019-03-18 13:09 | PDOC.HOSPP ---
- Subjective Subjective: Seen and examined. Still with nausea and vomiting. Diarrhea. Renal pain and discomfort. Patient is emotionally distraught and crying while I'm in the room. Clinically depressed. Patient willing to try antidepressant therapy. All questions answered in detail. Emotional support aided as able. - Objective Vital Signs & Weight: Vital Signs (12 hours) Temp Pulse Resp BP Pulse Ox 03/18/19 11:15 99.6 F 115 H 20 110/64 100 03/18/19 07:30 97.8 F 112 H 20 127/67 95 03/18/19 03:15 98.3 F 107 H 20 104/75 99 Weight Admit Weight 125 lb 6.4 oz Weight 125 lb I&O: 03/17/19 03/18/19 03/19/19 06:59 06:59 06:59 Intake Total 1637 2314 Balance 1637 2314 Result Diagrams: 03/18/19 09:46 03/18/19 09:46 Radiology Reviewed by me: Yes Hospitalist ROS - Review of Systems All other systems reviewed; all pertinent +/- noted in HPI/Subj - Medication Medications: Active Medications Generic Name Dose Route Start Last Admin Trade Name Freq PRN Reason Stop Dose Admin Acetaminophen 650 mg 03/15/19 16:14 03/18/19 09:30 Tylenol PO 650 mg Q4H PRN Administration Headache/Fever/Mild Pain (1-3) Diphenoxylate HCl/Atropine 2 tab 03/15/19 16:17 03/18/19 03:37 Lomotil PO 2 tab QID PRN Administration Diarrhea/Loose Stools Enoxaparin Sodium 60 mg 03/17/19 21:00 03/18/19 09:29 Lovenox SC 60 mg 0900,2100 AC Administration Famotidine 20 mg 03/15/19 21:00 03/18/19 09:29 Pepcid SLOW IVP 20 mg Q12HR AC Administration Hydrocortisone/Pramoxine 0 gm 03/15/19 21:00 03/18/19 09:31 Proctofoam Hc [place] Not Given TID AC Dextrose/Sodium Chloride 1,000 mls @ 100 mls/hr 03/15/19 14:30 03/18/19 12:01 D5 0.9% Ns IV 1,000 mls .Q10H AC Administration Amino Acids/Dextrose 1,000 mls @ 75 mls/hr 03/16/19 10:15 03/18/19 12:01 Clinimix 4.25/5 IV 1,000 mls INF AC Administration Cefepime HCl 2 gm/ Sodium 100 mls @ 200 mls/hr 03/16/19 23:59 03/18/19 09:29 Chloride IVPB 100 mls 0800,1600,2359 AC Administration Vancomycin HCl 500 mg/ Sodium 100 mls @ 100 mls/hr 03/18/19 12:30 03/18/19 12 :28 Chloride IVPB 03/18/19 14:00 100 mls NOW AC Administration Levothyroxine Sodium 75 mcg 03/16/19 06:00 03/18/19 06:26 Synthroid PO 75 mcg 0600 AC Administration Liothyronine Sodium 15 mcg 03/16/19 09:00 03/18/19 12:26 Cytomel PO 15 mcg QAM AC Administration Lorazepam 0.5 mg 03/15/19 14:29 03/18/19 00:54 Ativan SLOW IVP 0.5 mg Q8H PRN Administration Nausea Mineral Oil/White Petrolatum 0 gm 03/15/19 19:15 03/16/19 08:23 Aquaphor 99 Gm TOP 1 gm ASDIR AC Administration Morphine Sulfate 4 mg 03/18/19 10:59 03/18/19 12:30 Morphine SLOW IVP 4 mg Q2H PRN Administration Severe Pain (7-10) Ondansetron HCl 4 mg 03/15/19 16:14 03/18/19 06:25 Zofran IVP 4 mg Q6H PRN Administration Nausea/Vomiting Oxycodone/Acetaminophen 1 tab 03/18/19 08:15 03/18/19 09:42 Percocet 5/325 PO 1 tab Q4H PRN Administration Moderate Pain (4-6) Potassium Chloride 40 meq 03/18/19 11:28 03/18/19 12:28 K-Dur PO 03/18/19 17:01 40 meq BID-WM AC Administration Promethazine HCl 25 mg 03/15/19 19:23 03/18/19 10:07 Phenergan IM/IV 25 mg Q6H PRN Administration Nausea/Vomiting Sertraline HCl 25 mg 03/18/19 09:00 03/18/19 09:29 Zoloft PO 25 mg DAILY AC Administration Sodium Chloride 10 ml 03/16/19 21:00 03/18/19 09:31 Flush - Normal Saline IVF 10 ml Q12HR AC Administration - Exam General Appearance: NAD, awake alert Eye: PERRL, anicteric sclera ENT: normocephalic atraumatic, moist mucosa Neck: supple, symmetric, no lymphadenopathy Heart: RRR, no murmur, no gallops Respiratory: CTAB, no wheezes, no rales, no ronchi Gastrointestinal: soft, non-tender, non-distended, no guarding, no rigidity Extremities: no clubbing, no edema Skin: no lesions, no rashes Neurological: cranial nerve grossly intact, normal sensation to touch, no focal deficits Musculoskeletal: generalized weakness Psychiatric: normal affect, normal behavior, A&O x 3 Psychiatric - other findings: Depressed mood Hosp A/P (1) UTI (urinary tract infection) Status: Acute (2) HTN (hypertension) Code(s): I10 - ESSENTIAL (PRIMARY) HYPERTENSION Status: Acute (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, UNSPECIFIED Status: Acute (4) Diarrhea Code(s): R19.7 - DIARRHEA, UNSPECIFIED Status: Acute (5) Vomiting Code(s): R11.10 - VOMITING, UNSPECIFIED Status: Acute - Plan Plan: medical oncology unit oncology consultation, recommendations appreciated Transfuse 2 units of PRBC today Start Zoloft for depression CTA chest abnormal for PE Full dose lovenox Will need transition to oral anticoagulation, a full 6 month course required Hypercoagulable state from [place] Needs to increase motility IV fluid resuscitation with nutrition supplementation - On Clinimix Neutropenic precautions IV antibiotics for urinary tract infection and Neutropenic fever Fever treated with tylenol as needed De escalate to culture and sensitivity as able symptomatic therapy for nausea and vomiting status post chemotherapy - times two status post radiation therapy skin breakdown the perineum s/p radiation, wound care consultation eval and treat continue with her home medications as able DVT prophylaxis G.I. prophylaxis Appears clinically depressed, tried to encourage patient to stay positive, offered mood stabilizing medication which she will think about
[2019-03-18] MEDS ORDERED: Potassium Chloride 20 MEQ TAB PO SCH (17:45)
[2019-03-18] MEDS: Vancomycin HCl 1.25 GM in Sodium Chloride 0.9% 250 ML 250 ML IVPB SCH (20:27)
[2019-03-18 20:29] LABS: Hemoglobin 8.9 g/dL (12.0-16.0); Mean Corpuscular HGB CONC 35.5 g/dL (32.0-36.0); Mean Corpuscular Hemoglobin 31.2 pg (27.0-31.0); Mean Corpuscular Volume 87.8 fL (78.0-98.0); Mean Platelet Volume 4.2 fL (7.4-10.4); Platelet Count 82 thou/uL (130-400); RBC Distribution Width 13.7 % (11.5-14.5); Red Blood Cell (RBC) Count 2.84 mill/uL (4.20-5.40); White Blood Cell (WBC) Count 0.5 thou/uL (4.8-10.8)
[2019-03-18 20:44] LABS: Anion Gap 7 mmol/L (10-20); BUN (Urea Nitrogen) 12 mg/dL (9.8-20.1); Calc. Creatinine Clearance 122 mL/min (70-130); Calcium 7.7 mg/dL (7.8-10.44); Carbon Dioxide 24 mmol/L (22-29); Chloride 106 mmol/L (98-107); Estimated GFR-MDRD Greater than 90; Glucose 126 mg/dL (70-105); Potassium 3.6 mmol/L (3.5-5.1); Sodium 133 mmol/L (136-145)
[2019-03-18 20:59] LABS: Hypochromia SLIGHT = 6-15 cells (100X) (0-5/hpf); MDiff Complete? YES; Platelet Morphology Comment Appears Decreased
[2019-03-19] MEDS: Promethazine HCl 25 MG/ML VIAL IM/IV PRN ×2 (00:32→08:37)
[2019-03-19] MEDS: Cefepime 2 GM in Sodium Chloride 0.9% 100 ML IVPB SCH ×4 (00:35→22:37)
[2019-03-19] MEDS: Ondansetron PF 4 MG/2 ML Vial IVP PRN ×2 (02:45→10:30)
[2019-03-19] MEDS: Amino Acids 4.25 %/Dextrose 5% 1,000 ML IV SCH ×2 (03:06→16:18)
[2019-03-19] MEDS: Diphenoxylate HCl/Atropine Tablet PO PRN ×2 (03:06→05:30)
[2019-03-19] MEDS: Lorazepam 2 MG/ML VIAL SLOW IVP PRN ×2 (05:35→13:49)
[2019-03-19 08:14] LABS: Hemoglobin 8.3 g/dL (12.0-16.0); Mean Corpuscular HGB CONC 35.6 g/dL (32.0-36.0); Mean Corpuscular Hemoglobin 31.1 pg (27.0-31.0); Mean Corpuscular Volume 87.3 fL (78.0-98.0); RBC Distribution Width 13.6 % (11.5-14.5); Red Blood Cell (RBC) Count 2.68 mill/uL (4.20-5.40); White Blood Cell (WBC) Count 0.6 thou/uL (4.8-10.8)
[2019-03-19] MEDS: Dextrose 5 % And 0.9 % NaCl 1,000 ML IV SCH ×3 (08:24→22:16)
[2019-03-19] MEDS: Levothyroxine Sodium 75 MCG TAB PO SCH (08:33)
[2019-03-19] MEDS: Famotidine/PF 20 mg/2ml Vial SLOW IVP SCH ×2 (08:35→20:25)
[2019-03-19] MEDS: Hydrocortisone/Pramoxine (Proctofoam HC) 10 GM BOX PR SCH ×3 (08:36→22:16)
[2019-03-19 08:39] LABS: Lymphocytes 90 % (21-51); MDiff Complete? YES; Monocytes 6 % (0-10); Neutrophil 4 % (42-75); Nucleated RBC 1 % (0); Platelet Count 70 thou/uL (130-400); Platelet Morphology Comment Appears Decreased
[2019-03-19] MEDS: Scopolamine 1.5 mg/72 hour Patch TD SCH (08:40)
[2019-03-19] MEDS: Liothyronine Sodium 5 MCG TAB PO SCH (08:41)
[2019-03-19 08:52] LABS: Vancomycin, Trough 9.2 ug/mL
[2019-03-19] MEDS: Enoxaparin Sodium 60 MG/0.6 ML SYRINGE SC SCH ×2 (09:11→20:32)
[2019-03-19] MEDS: Vancomycin HCl 1.25 GM in Sodium Chloride 0.9% 250 ML 250 ML IVPB SCH (10:53)
--- NOTE | 2019-03-19 12:14 | PDOC.HOSPP ---
- Subjective Subjective: Seen and examined. Patient still with nausea, vomiting, and diarrhea. Patient states that medications are helping though she is requiring them so frequently that even in between doses she is still feeling nauseous and vomiting. Patient with flat mood and affect today. Has been at bedside, all questions answered in detail. - Objective Vital Signs & Weight: Vital Signs (12 hours) Temp Pulse Resp BP BP Pulse Ox 03/19/19 11:03 98.8 F 119 H 16 123/64 100 03/19/19 08:40 100 03/19/19 08:27 98.8 F 112 H 18 128/71 100 03/19/19 04:46 100.9 F H 123 H 16 120/63 99 Weight Admit Weight 125 lb 6.4 oz Weight 125 lb I&O: 03/18/19 03/19/19 03/20/19 06:59 06:59 06:59 Intake Total 2314 3370 Output Total 1020 Balance 2314 2350 Result Diagrams: 03/19/19 07:45 03/18/19 20:16 Radiology Reviewed by me: Yes Hospitalist ROS - Review of Systems All other systems reviewed; all pertinent +/- noted in HPI/Subj - Medication Medications: Active Medications Generic Name Dose Route Start Last Admin Trade Name Freq PRN Reason Stop Dose Admin Acetaminophen 650 mg 03/15/19 16:14 03/18/19 09:30 Tylenol PO 650 mg Q4H PRN Administration Headache/Fever/Mild Pain (1-3) Acetaminophen 650 mg 03/15/19 16:14 03/18/19 15:03 Tylenol ID 650 mg Q4H PRN Administration Headache/Fever/Mild Pain (1-3) Diphenoxylate HCl/Atropine 2 tab 03/15/19 16:17 03/19/19 05:30 Lomotil PO 2 tab QID PRN Administration Diarrhea/Loose Stools Enoxaparin Sodium 60 mg 03/17/19 21:00 03/19/19 09:11 Lovenox SC 60 mg 0900,2100 AC Administration Famotidine 20 mg 03/15/19 21:00 03/19/19 08:35 Pepcid SLOW IVP 20 mg Q12HR AC Administration Hydrocortisone/Pramoxine 0 gm 03/15/19 21:00 03/19/19 08:36 Proctofoam Hc ID Not Given TID AC Hydrocortisone/Pramoxine 0 gm 03/17/19 03:38 03/19/19 05:41 Analpram Hc ID 1 applic TID PRN Administration Anal/Rectal Irritations Dextrose/Sodium Chloride 1,000 mls @ 100 mls/hr 03/15/19 14:30 03/19/19 08:24 D5 0.9% Ns IV 1,000 mls .Q10H AC Administration Amino Acids/Dextrose 1,000 mls @ 75 mls/hr 03/16/19 10:15 03/19/19 03:06 Clinimix 4.25/5 IV 1,000 mls INF AC Administration Cefepime HCl 2 gm/ Sodium 100 mls @ 200 mls/hr 03/16/19 23:59 03/19/19 08:34 Chloride IVPB 100 mls 0800,1600,2359 CA Administration Vancomycin HCl 1.25 gm/ Sodium 250 mls @ 166.667 mls/hr 03/18/19 20:00 10:53 Chloride IVPB 250 mls 1000,2000 AC Administration Levothyroxine Sodium 75 mcg 03/16/19 06:00 03/19/19 08:33 Synthroid PO 75 mcg 0600 AC Administration Liothyronine Sodium 15 mcg 03/16/19 09:00 03/19/19 08:41 Cytomel PO 15 mcg QAM AC Administration Lorazepam 0.5 mg 03/15/19 14:29 03/19/19 05:35 Ativan SLOW IVP 0.5 mg Q8H PRN Administration Nausea Mineral Oil/White Petrolatum 0 gm 03/15/19 19:15 03/16/19 08:23 Aquaphor 99 Gm TOP 1 gm ASDIR AC Administration Morphine Sulfate 4 mg 03/18/19 10:59 03/18/19 18:32 Morphine SLOW IVP 4 mg Q2H PRN Administration Severe Pain (7-10) Ondansetron HCl 4 mg 03/15/19 16:14 03/19/19 10:30 Zofran IVP 4 mg Q6H PRN Administration Nausea/Vomiting Oxycodone/Acetaminophen 1 tab 03/18/19 08:15 03/18/19 09:42 Percocet 5/325 PO 1 tab Q4H PRN Administration Moderate Pain (4-6) Promethazine HCl 25 mg 03/15/19 19:23 03/19/19 08:37 Phenergan IM/IV 25 mg Q6H PRN Administration Nausea/Vomiting Scopolamine 1.5 mg 03/19/19 08:30 03/19/19 08:40 Transderm Scop TD 1.5 mg Q3D AC Administration Sertraline HCl 25 mg 03/18/19 09:00 03/19/19 08:37 Zoloft PO 25 mg DAILY AC Administration Sodium Chloride 10 ml 03/16/19 21:00 03/19/19 08:37 Flush - Normal Saline IVF 10 ml Q12HR AC Administration - Exam General Appearance: NAD, awake alert Eye: PERRL ENT: normocephalic atraumatic, moist mucosa Neck: supple, symmetric, no lymphadenopathy Heart: RRR, no murmur, no gallops Respiratory: CTAB, no wheezes, no rales, no ronchi, normal chest expansion Gastrointestinal: soft, non-tender, non-distended, normal bowel sounds, no guarding Extremities: no clubbing, no edema Skin: no lesions, no rashes Neurological: cranial nerve grossly intact, no focal deficits Musculoskeletal: generalized weakness Psychiatric: A&O x 3, flat affect Hosp A/P (1) UTI (urinary tract infection) Status: Acute (2) HTN (hypertension) Code(s): I10 - ESSENTIAL (PRIMARY) HYPERTENSION Status: Acute (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, UNSPECIFIED Status: Acute (4) Diarrhea Code(s): R19.7 - DIARRHEA, UNSPECIFIED Status: Acute (5) Vomiting Code(s): R11.10 - VOMITING, UNSPECIFIED Status: Acute - Plan Plan: medical oncology unit oncology consultation, recommendations appreciated Start Scopolamine patch for improved control of n/v Transfused 2 units of PRBC on 03/18 with good response Continue Zoloft for depression CTA chest abnormal for PE Full dose lovenox Will need transition to oral anticoagulation, a full 6 month course required Hypercoagulable state from [place] Needs to increase motility IV fluid resuscitation with nutrition supplementation - On Clinimix Neutropenic precautions IV antibiotics for urinary tract infection and Neutropenic fever Fever treated with tylenol as needed De escalate to culture and sensitivity as able symptomatic therapy for nausea and vomiting status post chemotherapy - times two status post radiation therapy skin breakdown the perineum s/p radiation, wound care consultation eval and treat continue with her home medications as able DVT prophylaxis G.I. prophylaxis Appears clinically depressed, tried to encourage patient to stay positive. Started Zoloft
[2019-03-19] MEDS: Hydrocortisone Acetate 25 MG Suppository PR PRN (13:30)
--- NOTE | 2019-03-19 13:56 | PDOC.MOPN ---
Interval History: Spiked fever this morning. N/V/D not better, only temporarily improved with meds - Vital Signs Vital Signs: Vital Signs (12 hours) Temp Pulse Resp BP BP Pulse Ox 03/19/19 11:03 98.8 F 119 H 16 123/64 100 03/19/19 08:40 100 03/19/19 08:27 98.8 F 112 H 18 128/71 100 03/19/19 04:46 100.9 F H 123 H 16 120/63 99 Weight Admit Weight 125 lb 6.4 oz Weight 125 lb - Physical Exam General: Alert, Oriented x3, Cooperative HEENT: Atraumatic Lungs: Normal air movement Cardiovascular: Regular rate Neurological: Cranial nerves 3-12 NL Psych/Mental Status: Other (depressed) - Labs Result Diagrams: 03/19/19 07:45 03/18/19 20:16 Lab results: Laboratory Results - last 24 hr 03/19/19 07:45: WBC 0.6 L*, RBC 2.68 L, Hgb 8.3 L, Hct 23.4 L, MCV 87.3, MCH 31.1 H, MCHC 35.6, RDW 13.6, Plt Count 70 L, MPV 7.0 L, Neutrophils % (Manual) 4 L, Lymphocytes % (Manual) 90 H, Monocytes % (Manual) 6, Neutrophils # Not Reportable, Lymphocytes # Not Reportable, Nucleated RBCs # (Man) 1 H, Smudge Cells SLIGHT, Plt Morphology Comment Appears Decreased L 03/19/19 07:45: Vancomycin Trough 9.2 03/18/19 20:16: Sodium 133 L, Potassium 3.6, Chloride 106, Carbon Dioxide 24, Anion Gap 7 L, BUN 12, Creatinine 0.49 L, Estimated GFR (MDRD) Greater than 90 , Glucose 126 H, Calcium 7.7 L 03/18/19 20:16: WBC 0.5 L*, RBC 2.84 L, Hgb 8.9 L, Hct 24.9 L, MCV 87.8, MCH 31.2 H, MCHC 35.5, RDW 13.7, Plt Count 82 L, MPV 4.2 L, Neutrophils % (Manual) Not Reportable, Neutrophils # Not Reportable, Lymphocytes # Not Reportable, Hypochromia SLIGHT = 6-15 cells, Plt Morphology Comment Appears Decreased L 03/18/19 11:41: Blood Type O POSITIVE, Antibody Screen NEGATIVE, Crossmatch See Detail A/P - Problem (1) Anal cancer Current Visit: Yes Code(s): C21.0 - MALIGNANT NEOPLASM OF ANUS, UNSPECIFIED Status: Acute (2) Neutropenia Current Visit: Yes Code(s): D70.9 - NEUTROPENIA, UNSPECIFIED Status: Acute (3) Vomiting Current Visit: Yes Code(s): R11.10 - VOMITING, UNSPECIFIED Status: Acute - Plan Plan: 1. PPN and IVF 2. continue ABX 3. cont Lovenox for now, change to DOAC for discharge 4. continue aquaphor and paste to anal skin 5. add Scopalamine as per Dr. Craig, change Zofran + Phenergan to standing, compazine prn 6. start Granix, cont until ANC 1.0
[2019-03-19] MEDS: Promethazine HCl 25 MG/ML VIAL IM/IV SCH ×2 (15:16→20:25)
[2019-03-19] MEDS: TBO-Filgrastim 300 MCG/0.5 ML VIAL SC SCH (15:17)
[2019-03-19] MEDS: Ondansetron PF 4 MG/2 ML Vial IVP SCH ×2 (16:32→22:37)
[2019-03-19 19:21] LABS: Vancomycin, Trough 10.5 ug/mL
[2019-03-19] MEDS: Morphine 4 MG/ML VIAL SLOW IVP PRN (20:24)
[2019-03-19] MEDS: Vancomycin 1.5 GRAM/300 ML BAG 1.5 GM in Premix Bag 1 BAG IVPB SCH (21:16)
[2019-03-20] MEDS: Promethazine HCl 25 MG/ML VIAL IM/IV SCH ×4 (01:58→21:31)
[2019-03-20] MEDS: Lorazepam 2 MG/ML VIAL SLOW IVP PRN ×3 (03:26→23:35)
[2019-03-20 05:22] LABS: Hemoglobin 7.4 g/dL (12.0-16.0); Mean Corpuscular HGB CONC 36.1 g/dL (32.0-36.0); Mean Corpuscular Hemoglobin 31.5 pg (27.0-31.0); Mean Corpuscular Volume 87.3 fL (78.0-98.0); Mean Platelet Volume 7.1 fL (7.4-10.4); Platelet Count 58 thou/uL (130-400); RBC Distribution Width 13.8 % (11.5-14.5); Red Blood Cell (RBC) Count 2.35 mill/uL (4.20-5.40); White Blood Cell (WBC) Count 0.6 thou/uL (4.8-10.8)
[2019-03-20 05:29] LABS: Calc. Creatinine Clearance 122 mL/min (70-130); Estimated GFR-MDRD Greater than 90
[2019-03-20 05:46] LABS: Band 4 % (5-11); Lymphocytes 56 % (21-51); MDiff Complete? YES; Monocytes 32 % (0-10); Neutrophil 8 % (42-75); Platelet Morphology Comment Appears Decreased; RBC Morphology Normal
[2019-03-20] MEDS: Levothyroxine Sodium 75 MCG TAB PO SCH (05:46)
[2019-03-20] MEDS: Ondansetron PF 4 MG/2 ML Vial IVP SCH ×4 (05:46→22:33)
[2019-03-20] MEDS: Amino Acids 4.25 %/Dextrose 5% 1,000 ML IV SCH ×2 (06:16→20:20)
[2019-03-20] MEDS: Cefepime 2 GM in Sodium Chloride 0.9% 100 ML IVPB SCH ×3 (08:38→23:29)
[2019-03-20] MEDS: Famotidine/PF 20 mg/2ml Vial SLOW IVP SCH ×2 (08:40→20:20)
[2019-03-20] MEDS: Enoxaparin Sodium 60 MG/0.6 ML SYRINGE SC SCH ×2 (08:40→22:34)
[2019-03-20] MEDS: Dextrose 5 % And 0.9 % NaCl 1,000 ML IV SCH ×2 (08:42→18:24)
[2019-03-20] MEDS: Hydrocortisone/Pramoxine (Proctofoam HC) 10 GM BOX PR SCH ×3 (08:59→22:34)
[2019-03-20] MEDS: Liothyronine Sodium 5 MCG TAB PO SCH (09:00)
[2019-03-20] MEDS: oxyCODONE/Acetaminophen 5 mg/325 mg Tablet PO PRN ×3 (09:30→22:33)
--- NOTE | 2019-03-20 09:48 | EKG ---
Test Reason : STAT Blood Pressure : / mmHG Vent. Rate : 135 BPM Atrial Rate : 135 BPM P-R Int : 116 ms QRS Dur : 068 ms QT Int : 292 ms P-R-T Axes : 068 059 047 degrees QTc Int : 438 ms Sinus tachycardia Otherwise normal ECG When compared with ECG of 20-JUL-2018 07:27, Vent. rate has increased BY 70 BPM Non-specific change in ST segment in Inferior leads Confirmed by DEYANIRA CAPPS, SPebbles ([id number]) on 03/20/2019 9:47:35 AM Referred By: DAYO MOODY Confirmed By:DR. Leonora MCMILLAN MD
[2019-03-20] MEDS: Vancomycin 1.5 GRAM/300 ML BAG 1.5 GM in Premix Bag 1 BAG IVPB SCH ×2 (10:47→20:21)
--- NOTE | 2019-03-20 11:18 | PDOC.HOSPP ---
- Subjective Subjective: Seen and examined. Patient with persistent nausea, though she has not been vomiting with adjusted medications. Persistent soreness in the perennial area. Got some sleep around three in the morning when received Ativan. Patient's family at bedside are upset that there is not been significant progression with her chemotherapy induced nausea and vomiting. All questions answered in detail. - Objective Vital Signs & Weight: Vital Signs (12 hours) Temp Pulse Resp BP BP Pulse Ox 03/20/19 11:12 98.2 F 101 H 20 101/71 98 03/20/19 08:30 97 03/20/19 08:00 99.8 F H 113 H 18 119/57 L 97 03/20/19 04:00 99.9 F H 120 H 23 H 110/55 L 98 03/19/19 23:36 98.8 F 118 H 20 114/58 L 98 Weight Admit Weight 125 lb 6.4 oz Weight 125 lb I&O: 03/19/19 03/20/19 03/21/19 06:59 06:59 06:59 Intake Total 3370 3005 Output Total 1020 Balance 2350 3005 Result Diagrams: 03/20/19 04:26 03/20/19 04:26 Hospitalist ROS - Review of Systems All other systems reviewed; all pertinent +/- noted in HPI/Subj - Medication Medications: Active Medications Generic Name Dose Route Start Last Admin Trade Name Freq PRN Reason Stop Dose Admin Acetaminophen 650 mg 03/15/19 16:14 03/18/19 09:30 Tylenol PO 650 mg Q4H PRN Administration Headache/Fever/Mild Pain (1-3) Acetaminophen 650 mg 03/15/19 16:14 03/18/19 15:03 Tylenol [place] 650 mg Q4H PRN Administration Headache/Fever/Mild Pain (1-3) Diphenoxylate HCl/Atropine 2 tab 03/15/19 16:17 03/19/19 05:30 Lomotil PO 2 tab QID PRN Administration Diarrhea/Loose Stools Enoxaparin Sodium 60 mg 03/17/19 21:00 03/20/19 08:40 Lovenox SC 60 mg 0900,2100 AC Administration Famotidine 20 mg 03/15/19 21:00 03/20/19 08:40 Pepcid SLOW IVP 20 mg Q12HR AC Administration Hydrocortisone Acetate 25 mg 03/17/19 17:30 03/19/19 13:30 Anusol-Hc VT 25 mg BIDPRN PRN Administration Hemorrhoids Hydrocortisone/Pramoxine 0 gm 03/15/19 21:00 03/20/19 08:59 Proctofoam Hc VT Not Given TID AC Hydrocortisone/Pramoxine 0 gm 03/17/19 03:38 03/19/19 05:41 Analpram Hc VT 1 applic TID PRN Administration Anal/Rectal Irritations Dextrose/Sodium Chloride 1,000 mls @ 100 mls/hr 03/15/19 14:30 03/20/19 08:42 D5 0.9% Ns IV 1,000 mls .Q10H AC Administration Amino Acids/Dextrose 1,000 mls @ 75 mls/hr 03/16/19 10:15 03/20/19 06:16 Clinimix 4.25/5 IV 1,000 mls INF AC Administration Cefepime HCl 2 gm/ Sodium 100 mls @ 200 mls/hr 03/16/19 23:59 03/20/19 08:38 Chloride IVPB 100 mls 0800,1600,2359 AC Administration Vancomycin HCl 1.5 gm/ Device 300 mls @ 200 mls/hr 03/19/19 20:00 03/20/19 10 :47 IVPB 300 mls 1000,2000 AC Administration Levothyroxine Sodium 75 mcg 03/16/19 06:00 03/20/19 05:46 Synthroid PO Not Given 0600 AC Liothyronine Sodium 15 mcg 03/16/19 09:00 03/20/19 09:00 Cytomel PO Not Given QAM AC Lorazepam 0.5 mg 03/15/19 14:29 03/20/19 03:26 Ativan SLOW IVP 0.5 mg Q8H PRN Administration Nausea Mineral Oil/White Petrolatum 0 gm 03/15/19 19:15 03/16/19 08:23 Aquaphor 99 Gm TOP 1 gm ASDIR AC Administration Morphine Sulfate 4 mg 03/18/19 10:59 03/19/19 20:24 Morphine SLOW IVP 4 mg Q2H PRN Administration Severe Pain (7-10) Ondansetron HCl 4 mg 03/19/19 16:00 03/20/19 10:45 Zofran IVP 4 mg Q6H AC Administration Oxycodone/Acetaminophen 1 tab 03/18/19 08:15 03/20/19 09:30 Percocet 5/325 PO 1 tab Q4H PRN Administration Moderate Pain (4-6) Promethazine HCl 25 mg 03/19/19 14:00 03/20/19 08:44 Phenergan IM/IV 25 mg Q6H AC Administration Scopolamine 1.5 mg 03/19/19 08:30 03/19/19 08:40 Transderm Scop TD 1.5 mg Q3D AC Administration Sertraline HCl 25 mg 03/18/19 09:00 03/20/19 08:59 Zoloft PO Not Given DAILY AC Sodium Chloride 10 ml 03/16/19 21:00 03/20/19 08:50 Flush - Normal Saline IVF 10 ml Q12HR AC Administration Sodium Chloride 10 ml 03/16/19 09:41 03/20/19 08:50 Flush - Normal Saline IVF 10 ml PRN PRN Administration Saline Flush Tbo-Filgrastim 300 mcg 03/19/19 14:00 03/19/19 15:17 Granix SC 300 mcg 1400 AC Administration - Exam General Appearance: NAD, awake alert Eye: PERRL ENT: normocephalic atraumatic, moist mucosa Neck: supple, symmetric, no lymphadenopathy Heart: no murmur, no gallops, no rubs Respiratory: CTAB, no wheezes, no rales, no ronchi, normal chest expansion Gastrointestinal: soft, non-tender, no guarding, no rigidity Extremities: no edema Skin: no lesions, no rashes Neurological: cranial nerve grossly intact, no focal deficits Psychiatric: normal affect, normal behavior, somnolent Hosp A/P (1) UTI (urinary tract infection) Status: Acute (2) HTN (hypertension) Code(s): I10 - ESSENTIAL (PRIMARY) HYPERTENSION Status: Acute (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, UNSPECIFIED Status: Acute (4) Diarrhea Code(s): R19.7 - DIARRHEA, UNSPECIFIED Status: Acute (5) Vomiting Code(s): R11.10 - VOMITING, UNSPECIFIED Status: Acute - Plan Plan: medical oncology unit oncology consultation, recommendations appreciated Transfused 2 units of PRBC on 03/18 Continue Zoloft for depression CTA chest abnormal for PE Full dose lovenox Will need transition to oral anticoagulation on D/c, a full 6 month course required Hypercoagulable state from [place] Needs to increase motility IV fluid resuscitation with nutrition supplementation - On Clinimix Neutropenic precautions IV antibiotics for urinary tract infection and Neutropenic fever Fever treated with tylenol as needed De escalate to culture and sensitivity as able symptomatic therapy for nausea and vomiting status post chemotherapy - times two status post radiation therapy skin breakdown the perineum s/p radiation, wound care consultation eval and treat continue with her home medications as able DVT prophylaxis G.I. prophylaxis Appears clinically depressed, tried to encourage patient to stay positive. Started Zoloft
[2019-03-20] MEDS: Diphenoxylate HCl/Atropine Tablet PO PRN (14:47)
[2019-03-20] MEDS: Hydrocortisone Acetate 25 MG Suppository PR PRN (14:47)
[2019-03-20] MEDS: TBO-Filgrastim 300 MCG/0.5 ML VIAL SC SCH (14:52)
[2019-03-20] MEDS: Prochlorperazine Maleate 5 MG TAB PO PRN (20:20)
[2019-03-20] MEDS: Promethazine HCl 25 MG in Sodium Chloride 0.9% 50 ML IVPB PRN (20:36)
[2019-03-21] MEDS: Promethazine HCl 25 MG in Sodium Chloride 0.9% 50 ML IVPB PRN (02:31)
[2019-03-21] MEDS: Promethazine HCl 25 MG/ML VIAL IM/IV SCH ×4 (02:36→20:22)
[2019-03-21] MEDS: Dextrose 5 % And 0.9 % NaCl 1,000 ML IV SCH ×3 (02:40→23:39)
[2019-03-21] MEDS: Ondansetron PF 4 MG/2 ML Vial IVP SCH ×4 (04:01→21:04)
[2019-03-21 04:25] LABS: Calc. Creatinine Clearance 130 mL/min (70-130); Estimated GFR-MDRD Greater than 90
[2019-03-21 04:36] LABS: Band 30 % (5-11); Eosinophils 3 % (0-10); Hemoglobin 6.8 g/dL (12.0-16.0); Lymphocytes 15 % (21-51); MDiff Complete? YES; Mean Corpuscular HGB CONC 35.4 g/dL (32.0-36.0); Mean Corpuscular Hemoglobin 30.9 pg (27.0-31.0); Mean Corpuscular Volume 87.2 fL (78.0-98.0); Mean Platelet Volume 8.3 fL (7.4-10.4); Metamyelocyte 1 % (0-0); Monocytes 11 % (0-10); Neutrophil 38 % (42-75); Nucleated RBC 1 % (0); Platelet Count 40 thou/uL (130-400); Platelet Morphology Comment Appears Decreased; RBC Distribution Width 14.1 % (11.5-14.5); RBC Morphology Normal; Reactive Lymphocytes 2 % (0-10); White Blood Cell (WBC) Count 1.1 thou/uL (4.8-10.8)
[2019-03-21] MEDS: Levothyroxine Sodium 75 MCG TAB PO SCH (05:45)
[2019-03-21] MEDS: Prochlorperazine Maleate 5 MG TAB PO PRN (05:47)
[2019-03-21 07:25] LABS: Vancomycin, Trough 13.8 ug/mL
[2019-03-21] MEDS: Cefepime 2 GM in Sodium Chloride 0.9% 100 ML IVPB SCH ×3 (08:10→23:35)
[2019-03-21] MEDS: Liothyronine Sodium 5 MCG TAB PO SCH (08:11)
[2019-03-21] MEDS: Famotidine/PF 20 mg/2ml Vial SLOW IVP SCH ×2 (08:11→20:22)
[2019-03-21] MEDS: Morphine 4 MG/ML VIAL SLOW IVP PRN (08:51)
[2019-03-21] MEDS: Hydrocortisone/Pramoxine (Proctofoam HC) 10 GM BOX PR SCH ×3 (09:00→20:23)
[2019-03-21] MEDS: Enoxaparin Sodium 60 MG/0.6 ML SYRINGE SC SCH ×2 (09:00→20:20)
[2019-03-21] MEDS: Vancomycin 1.5 GRAM/300 ML BAG 1.5 GM in Premix Bag 1 BAG IVPB SCH ×2 (10:00→20:37)
--- NOTE | 2019-03-21 11:19 | PDOC.MOPN ---
Interval History: Pt w/less N/V, had dry heaves last night but nothing since then. No fever in last 48 hrs. ANC improving. - Vital Signs Vital Signs: Vital Signs (12 hours) Temp Pulse Resp BP BP Pulse Ox 03/21/19 08:00 99.3 F 104 H 18 134/65 100 03/21/19 04:00 99.1 F 102 H 16 119/70 99 03/20/19 23:28 98.7 F 104 H 16 131/62 99 Weight Admit Weight 125 lb 6.4 oz Weight 125 lb - Physical Exam General: Alert, Oriented x3, Cooperative HEENT: Atraumatic Lungs: Normal air movement Cardiovascular: Regular rate Neurological: Cranial nerves 3-12 NL Psych/Mental Status: Other (depressed) - Labs Result Diagrams: 03/21/19 03:50 03/21/19 03:50 Lab results: Laboratory Results - last 24 hr 03/21/19 06:59: Vancomycin Trough 13.8 03/21/19 03:50: WBC 1.1 L, RBC 2.20 L, Hgb 6.8 L, Hct 19.1 L, MCV 87.2, MCH 30.9 , MCHC 35.4, RDW 14.1, Plt Count 40 L, MPV 8.3, Neutrophils % (Manual) 38 L, Band Neuts % (Manual) 30 H, Lymphocytes % (Manual) 15 L, Reactive Lymphs % 2, Monocytes % (Manual) 11 H, Eosinophils % (Manual) 3, Metamyelocytes % (Man) 1 H , Nucleated RBCs # (Man) 1 H, Plt Morphology Comment Appears Decreased L, RBC Morph Comment Normal 03/21/19 03:50: Creatinine 0.46 L, Estimated GFR (MDRD) Greater than 90 03/18/19 11:41: Blood Type O POSITIVE, Antibody Screen NEGATIVE, Crossmatch See Detail A/P - Problem (1) Anal cancer Current Visit: Yes Code(s): C21.0 - MALIGNANT NEOPLASM OF ANUS, UNSPECIFIED Status: Acute (2) Neutropenia Current Visit: Yes Code(s): D70.9 - NEUTROPENIA, UNSPECIFIED Status: Acute (3) Vomiting Current Visit: Yes Code(s): R11.10 - VOMITING, UNSPECIFIED Status: Acute - Plan Plan: ANC 748 today - cont Granix until ANC 1000 Hb 6.8 - transfuse PRBC today Cont zofran, compazine, phenergan, scopalamine, and ativan cont perineum wound care
[2019-03-21] MEDS: Amino Acids 4.25 %/Dextrose 5% 1,000 ML IV SCH (11:37)
--- NOTE | 2019-03-21 11:40 | PDOC.HOSPP ---
- Subjective Subjective: Seen and examined. No longer vomiting, though still feeling nauseous. Some dry heaving. Poor appetite and poor oral intake. Pain issues addressed with IV and oral medications. Patient's at bedside who is happy with plan of care. Low hemoglobin, getting transfused today. - Objective Vital Signs & Weight: Vital Signs (12 hours) Temp Pulse Resp BP BP Pulse Ox 03/21/19 08:00 99.3 F 104 H 18 134/65 100 03/21/19 04:00 99.1 F 102 H 16 119/70 99 Weight Admit Weight 125 lb 6.4 oz Weight 125 lb I&O: 03/20/19 03/21/19 03/22/19 06:59 06:59 06:59 Intake Total 3005 3643 Balance 3005 3643 Result Diagrams: 03/21/19 03:50 03/21/19 03:50 Hospitalist ROS - Review of Systems All other systems reviewed; all pertinent +/- noted in HPI/Subj - Medication Medications: Active Medications Generic Name Dose Route Start Last Admin Trade Name Freq PRN Reason Stop Dose Admin Acetaminophen 650 mg 03/15/19 16:14 03/18/19 09:30 Tylenol PO 650 mg Q4H PRN Administration Headache/Fever/Mild Pain (1-3) Acetaminophen 650 mg 03/15/19 16:14 03/18/19 15:03 Tylenol [place] 650 mg Q4H PRN Administration Headache/Fever/Mild Pain (1-3) Diphenoxylate HCl/Atropine 2 tab 03/15/19 16:17 03/20/19 14:47 Lomotil PO 2 tab QID PRN Administration Diarrhea/Loose Stools Enoxaparin Sodium 60 mg 03/17/19 21:00 03/21/19 09:00 Lovenox SC 60 mg 0900,2100 AC Administration Famotidine 20 mg 03/15/19 21:00 03/21/19 08:11 Pepcid SLOW IVP 20 mg Q12HR AC Administration Hydrocortisone Acetate 25 mg 03/17/19 17:30 03/20/19 14:47 Anusol-Hc FL 25 mg BIDPRN PRN Administration Hemorrhoids Hydrocortisone/Pramoxine 0 gm 03/15/19 21:00 03/21/19 09:00 Proctofoam Hc FL Not Given TID AC Hydrocortisone/Pramoxine 0 gm 03/17/19 03:38 03/19/19 05:41 Analpram Hc FL 1 applic TID PRN Administration Anal/Rectal Irritations Dextrose/Sodium Chloride 1,000 mls @ 100 mls/hr 03/15/19 14:30 03/21/19 02:40 D5 0.9% Ns IV 1,000 mls .Q10H AC Administration Amino Acids/Dextrose 1,000 mls @ 75 mls/hr 03/16/19 10:15 03/21/19 11:37 Clinimix 4.25/5 IV 1,000 mls INF AC Administration Cefepime HCl 2 gm/ Sodium 100 mls @ 200 mls/hr 03/16/19 23:59 03/21/19 08:10 Chloride IVPB 100 mls 0800,1600,2359 AC Administration Vancomycin HCl 1.5 gm/ Device 300 mls @ 200 mls/hr 03/19/19 20:00 03/21/19 10 :00 IVPB Not Given 1000,1999 AC Levothyroxine Sodium 75 mcg 03/16/19 06:00 03/21/19 05:45 Synthroid PO 75 mcg 0600 AC Administration Liothyronine Sodium 15 mcg 03/16/19 09:00 03/21/19 08:11 Cytomel PO 15 mcg QAM AC Administration Lorazepam 0.5 mg 03/15/19 14:29 03/20/19 23:35 Ativan SLOW IVP 0.5 mg Q8H PRN Administration Nausea Mineral Oil/White Petrolatum 0 gm 03/15/19 19:15 03/16/19 08:23 Aquaphor 99 Gm TOP 1 gm ASDIR AC Administration Morphine Sulfate 4 mg 03/18/19 10:59 03/21/19 08:51 Morphine SLOW IVP 4 mg Q2H PRN Administration Severe Pain (7-10) Ondansetron HCl 4 mg 03/19/19 16:00 03/21/19 10:54 Zofran IVP 4 mg Q6H AC Administration Oxycodone/Acetaminophen 1 tab 03/18/19 08:15 03/20/19 22:33 Percocet 5/325 PO 1 tab Q4H PRN Administration Moderate Pain (4-6) Prochlorperazine Maleate 5 mg 03/19/19 13:54 03/21/19 05:47 Compazine PO 5 mg Q6H PRN Administration Nausea/Vomiting Promethazine HCl 25 mg 03/19/19 14:00 03/21/19 08:07 Phenergan IM/IV 25 mg Q6H AC Administration Scopolamine 1.5 mg 03/19/19 08:30 03/19/19 08:40 Transderm Scop TD 1.5 mg Q3D AC Administration Sertraline HCl 25 mg 03/18/19 09:00 03/21/19 08:11 Zoloft PO 25 mg DAILY AC Administration Sodium Chloride 10 ml 03/16/19 21:00 03/20/19 22:33 Flush - Normal Saline IVF 10 ml Q12HR AC Administration Sodium Chloride 10 ml 03/16/19 09:41 03/20/19 08:50 Flush - Normal Saline IVF 10 ml PRN PRN Administration Saline Flush Tbo-Filgrastim 300 mcg 03/19/19 14:00 03/20/19 14:52 Granix SC 300 mcg 1400 AC Administration - Exam General Appearance: NAD, awake alert Eye: PERRL, anicteric sclera ENT: normocephalic atraumatic, moist mucosa Neck: supple, symmetric, no lymphadenopathy Heart: RRR, no murmur, no gallops, no rubs Heart - other findings: sinus tachycardia Respiratory: CTAB, no wheezes, no rales, no ronchi Gastrointestinal: soft, non-tender, no palpable masses Extremities: no clubbing, no edema Skin: no lesions, no rashes Neurological: cranial nerve grossly intact, no focal deficits Musculoskeletal: generalized weakness, diffuse muscle atrophy Psychiatric: A&O x 3, flat affect Hosp A/P (1) UTI (urinary tract infection) Status: Acute (2) HTN (hypertension) Code(s): I10 - ESSENTIAL (PRIMARY) HYPERTENSION Status: Acute (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, UNSPECIFIED Status: Acute (4) Diarrhea Code(s): R19.7 - DIARRHEA, UNSPECIFIED Status: Acute (5) Vomiting Code(s): R11.10 - VOMITING, UNSPECIFIED Status: Acute - Plan Plan: medical oncology unit oncology consultation, recommendations appreciated Transfused 2 units of PRBC on 03/18, 2 additional units of PRBC on 03/21 Continue Zoloft for depression CTA chest abnormal for PE Full dose lovenox Will need transition to oral anticoagulation on D/c with NOAC such as Eliquis or Xarelto, a full 6 month course required Hypercoagulable state from [place] Needs to increase motility, does not get out of bed or move hardly at all IV fluid resuscitation with nutrition supplementation - On Clinimix Neutropenic precautions IV antibiotics for urinary tract infection and Neutropenic fever Fever treated with tylenol as needed De escalate to culture and sensitivity as able symptomatic therapy for nausea and vomiting status post chemotherapy - times two status post radiation therapy skin breakdown the perineum s/p radiation, wound care consultation eval and treat continue with her home medications as able DVT prophylaxis G.I. prophylaxis Appears clinically depressed, tried to encourage patient to stay positive. Started Zoloft
[2019-03-21] MEDS: Vancomycin HCl 1.5 GM in Sodium Chloride 0.9% 250 ML 300 ML IVPB SCH (12:29)
[2019-03-21] MEDS: Hydrocortisone Acetate 25 MG Suppository PR PRN (13:52)
[2019-03-21] MEDS: Acetaminophen 325 MG TAB PO PRN ×2 (14:07→21:03)
[2019-03-21] MEDS: TBO-Filgrastim 300 MCG/0.5 ML VIAL SC SCH (14:49)
[2019-03-21] MEDS: Diphenoxylate HCl/Atropine Tablet PO PRN (18:18)
[2019-03-21] MEDS: Lorazepam 2 MG/ML VIAL SLOW IVP PRN (20:20)
[2019-03-21] MEDS: diphenhydrAMINE 25 MG CAP PO PRN (21:04)
[2019-03-22] MEDS: Vancomycin HCl 1.5 GM in Sodium Chloride 0.9% 250 ML 300 ML IVPB SCH (00:38)
[2019-03-22] MEDS: Promethazine HCl 25 MG/ML VIAL IM/IV SCH ×4 (02:03→20:20)
[2019-03-22] MEDS: Ondansetron PF 4 MG/2 ML Vial IVP SCH ×4 (03:36→22:23)
[2019-03-22] MEDS: Amino Acids 4.25 %/Dextrose 5% 1,000 ML IV SCH (03:37)
[2019-03-22] MEDS: Acetaminophen 325 MG TAB PO PRN (03:38)
[2019-03-22] MEDS: Levothyroxine Sodium 75 MCG TAB PO SCH (06:32)
[2019-03-22 06:50] LABS: Hemoglobin 9.4 g/dL (12.0-16.0); Mean Corpuscular Hemoglobin 30.6 pg (27.0-31.0); Mean Corpuscular Volume 84.9 fL (78.0-98.0); Mean Platelet Volume 9.3 fL (7.4-10.4); Platelet Count 27 thou/uL (130-400); RBC Distribution Width 13.9 % (11.5-14.5); Red Blood Cell (RBC) Count 3.06 mill/uL (4.20-5.40); White Blood Cell (WBC) Count 2.7 thou/uL (4.8-10.8)
[2019-03-22 07:21] LABS: Band 39 % (5-11); Dohle Bodies SLIGHT; Lymphocytes 9 % (21-51); MDiff Complete? YES; Monocytes 2 % (0-10); Neutrophil 44 % (42-75); Platelet Morphology Comment Appears Decreased; Polychromasia SLIGHT = 2-3 cells (100X) (0-2/hpf); Reactive Lymphocytes 5 % (0-10); Vacuoles SLIGHT
--- NOTE | 2019-03-22 08:15 | PDOC.MOPN ---
Interval History: she says she feels marginally better but still not taking adequate po. no bleeding. still with abdominal cramping. no fevers - Vital Signs Vital Signs: Vital Signs (12 hours) Temp Pulse Resp BP 03/22/19 03:35 101.5 F H 03/21/19 23:37 99.4 F 03/21/19 22:00 99.7 F H 96 16 131/62 Weight Admit Weight 125 lb 6.4 oz Weight 125 lb - Physical Exam General: Alert, Oriented x3 HEENT: Atraumatic Lungs: Clear to auscultation Cardiovascular: Regular rate Abdomen: Normal bowel sounds, Soft, No tenderness Extremities: No clubbing Skin: No rashes Neurological: Normal speech Psych/Mental Status: Mental status NL - Labs Result Diagrams: 03/22/19 06:37 03/21/19 03:50 Lab results: Laboratory Results - last 24 hr 03/22/19 06:37: WBC 2.7 L, RBC 3.06 L, Hgb 9.4 L, Hct 25.9 L, MCV 84.9, MCH 30.6 , MCHC 36.0, RDW 13.9, Plt Count 27 L*, MPV 9.3, Neutrophils % (Manual) 44, Band Neuts % (Manual) 39 H, Lymphocytes % (Manual) 9 L, Reactive Lymphs % 5, Monocytes % (Manual) 2, Basophils % (Manual) 1, Neutrophils # Not Reportable, Lymphocytes # Not Reportable, WBC Morphology SLIGHT, Dohle Bodies SLIGHT, Plt Morphology Comment Appears Decreased L, Polychromasia SLIGHT = 2-3 cells 03/18/19 11:41: Blood Type O POSITIVE, Antibody Screen NEGATIVE, Crossmatch See Detail A/P - Problem (1) Vomiting Current Visit: Yes Code(s): R11.10 - VOMITING, UNSPECIFIED Status: Acute (2) Anal cancer Current Visit: Yes Code(s): C21.0 - MALIGNANT NEOPLASM OF ANUS, UNSPECIFIED Status: Acute (3) Diarrhea Current Visit: Yes Code(s): R19.7 - DIARRHEA, UNSPECIFIED Status: Acute (4) Pulmonary embolism Current Visit: Yes Code(s): I26.99 - OTHER PULMONARY EMBOLISM WITHOUT ACUTE COR PULMONALE Status: Acute (5) Pancytopenia Current Visit: Yes Code(s): D61.818 - OTHER PANCYTOPENIA Status: Acute - Plan Plan: 1. d/c neutropenic precautions 2. stop lovenox for today s fatimah she is thrombocytopenic, resume when platelets above 50k 3. continue abx for now 4. PPN 5. increase po slowly 6. cont imodium
[2019-03-22] MEDS: Hydrocortisone Acetate 25 MG Suppository PR PRN (08:50)
[2019-03-22] MEDS: Famotidine/PF 20 mg/2ml Vial SLOW IVP SCH ×2 (08:51→20:21)
[2019-03-22] MEDS: Cefepime 2 GM in Sodium Chloride 0.9% 100 ML IVPB SCH ×3 (08:52→23:49)
[2019-03-22] MEDS: Liothyronine Sodium 5 MCG TAB PO SCH (08:52)
[2019-03-22] MEDS: Scopolamine 1.5 mg/72 hour Patch TD SCH (08:53)
[2019-03-22] MEDS: Hydrocortisone/Pramoxine (Proctofoam HC) 10 GM BOX PR SCH ×3 (09:00→20:21)
--- NOTE | 2019-03-22 10:17 | PDOC.HOSPP ---
- Subjective Encounter Date: 03/22/19 Encounter Time: 10:16 Subjective: Was feeling a little better this morning. Sat up for a few min. Feeling worse now. Nauseated again. Her mother did bring her a donut to sit on. Still has some diarrhea. - Objective Vital Signs & Weight: Vital Signs (12 hours) Temp Pulse Resp BP Pulse Ox 03/22/19 08:00 98.7 F 88 18 128/80 100 03/22/19 03:35 101.5 F H 03/21/19 23:37 99.4 F Weight Admit Weight 125 lb 6.4 oz Weight 125 lb I&O: 03/21/19 03/22/19 03/23/19 06:59 06:59 06:59 Intake Total 3643 1300 Balance 3643 1300 Result Diagrams: 03/22/19 06:37 03/21/19 03:50 Hospitalist ROS - Medication Medications: Active Medications Generic Name Dose Route Start Last Admin Trade Name Freq PRN Reason Stop Dose Admin Acetaminophen 650 mg 03/15/19 16:14 03/22/19 03:38 Tylenol PO 650 mg Q4H PRN Administration Headache/Fever/Mild Pain (1-3) Acetaminophen 650 mg 03/15/19 16:14 03/18/19 15:03 Tylenol [place] 650 mg Q4H PRN Administration Headache/Fever/Mild Pain (1-3) Diphenhydramine HCl 25 mg 03/17/19 19:21 03/21/19 21:04 Benadryl PO 25 mg Q6H PRN Administration Itching & Insomnia Diphenoxylate HCl/Atropine 2 tab 03/15/19 16:17 03/21/19 18:18 Lomotil PO 2 tab QID PRN Administration Diarrhea/Loose Stools Famotidine 20 mg 03/15/19 21:00 03/22/19 08:51 Pepcid SLOW IVP 20 mg Q12HR AC Administration Hydrocortisone Acetate 25 mg 03/17/19 17:30 03/22/19 08:50 Anusol-Hc DE 25 mg BIDPRN PRN Administration Hemorrhoids Hydrocortisone/Pramoxine 0 gm 03/15/19 21:00 03/21/19 20:23 Proctofoam Hc DE Not Given TID AC Hydrocortisone/Pramoxine 0 gm 03/17/19 03:38 03/19/19 05:41 Analpram Hc DE 1 applic TID PRN Administration Anal/Rectal Irritations Dextrose/Sodium Chloride 1,000 mls @ 100 mls/hr 03/15/19 14:30 03/21/19 23:39 D5 0.9% Ns IV 1,000 mls .Q10H AC Administration Amino Acids/Dextrose 1,000 mls @ 75 mls/hr 03/16/19 10:15 03/22/19 03:37 Clinimix 4.25/5 IV 1,000 mls INF AC Administration Cefepime HCl 2 gm/ Sodium 100 mls @ 200 mls/hr 03/16/19 23:59 03/22/19 08:52 Chloride IVPB 100 mls 0800,1600,2359 AC Administration Levothyroxine Sodium 75 mcg 03/16/19 06:00 03/22/19 06:32 Synthroid PO 75 mcg 0600 AC Administration Liothyronine Sodium 15 mcg 03/16/19 09:00 03/22/19 08:52 Cytomel PO 15 mcg QAM AC Administration Lorazepam 0.5 mg 03/15/19 14:29 03/21/19 20:20 Ativan SLOW IVP 0.5 mg Q8H PRN Administration Nausea Mineral Oil/White Petrolatum 0 gm 03/15/19 19:15 03/16/19 08:23 Aquaphor 99 Gm TOP 1 gm ASDIR AC Administration Morphine Sulfate 4 mg 03/18/19 10:59 03/21/19 08:51 Morphine SLOW IVP 4 mg Q2H PRN Administration Severe Pain (7-10) Ondansetron HCl 4 mg 03/19/19 16:00 03/22/19 03:36 Zofran IVP 4 mg Q6H AC Administration Oxycodone/Acetaminophen 1 tab 03/18/19 08:15 03/20/19 22:33 Percocet 5/325 PO 1 tab Q4H PRN Administration Moderate Pain (4-6) Prochlorperazine Maleate 5 mg 03/19/19 13:54 03/21/19 05:47 Compazine PO 5 mg Q6H PRN Administration Nausea/Vomiting Promethazine HCl 25 mg 03/19/19 14:00 03/22/19 08:52 Phenergan IM/IV 25 mg Q6H AC Administration Scopolamine 1.5 mg 03/19/19 08:30 03/22/19 08:53 Transderm Scop TD 1.5 mg Q3D AC Administration Sertraline HCl 25 mg 03/18/19 09:00 03/22/19 08:52 Zoloft PO 25 mg DAILY AC Administration Sodium Chloride 10 ml 03/16/19 21:00 03/21/19 20:22 Flush - Normal Saline IVF 10 ml Q12HR AC Administration Sodium Chloride 10 ml 03/16/19 09:41 03/20/19 08:50 Flush - Normal Saline IVF 10 ml PRN PRN Administration Saline Flush - Exam General Appearance: NAD, awake alert Heart: RRR, no murmur, no gallops, no rubs, normal peripheral pulses Respiratory: CTAB, no wheezes, no rales, no ronchi, normal chest expansion, no tachypnea, normal percussion Gastrointestinal: soft, non-distended, normal bowel sounds, no palpable masses, tender to palpation (diffuse.) Extremities: no cyanosis, no clubbing, no edema Skin: normal turgor, no lesions, no rashes Musculoskeletal: normal tone, normal strength, no muscle wasting Psychiatric: normal affect, normal behavior, A&O x 3 Psychiatric - other findings: Ill appearing. Hosp A/P (1) 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, UNSPECIFIED Status: Acute (2) Diarrhea Code(s): R19.7 - DIARRHEA, UNSPECIFIED Status: Acute (3) HTN (hypertension) Code(s): I10 - ESSENTIAL (PRIMARY) HYPERTENSION Status: Acute (4) Neutropenia Code(s): D70.9 - NEUTROPENIA, UNSPECIFIED Status: Acute (5) Pancytopenia Code(s): D61.818 - OTHER PANCYTOPENIA Status: Acute (6) Pulmonary embolism Code(s): I26.99 - OTHER PULMONARY EMBOLISM WITHOUT ACUTE COR PULMONALE Status : Acute (7) UTI (urinary tract infection) Status: Acute (8) Vomiting Code(s): R11.10 - VOMITING, UNSPECIFIED Status: Acute (9) Fever Code(s): R50.9 - FEVER, UNSPECIFIED Status: Acute - Plan Neutopenia improved. Still febrile. N/V/D persists. Continue symptomatic treatment. Continue IV abx. Continue PPN. Lovenox held due to thrombocytopenia. Continue to try to increase activity. Advance diet as she can tolerate it. Continue Wound Care.
[2019-03-22 11:25] LABS: Vancomycin, Trough 12.5 ug/mL
[2019-03-22] MEDS: Lorazepam 2 MG/ML VIAL SLOW IVP PRN (11:37)
[2019-03-22] MEDS: Dextrose 5 % And 0.9 % NaCl 1,000 ML IV SCH ×2 (12:47→20:20)
[2019-03-22] MEDS: oxyCODONE/Acetaminophen 5 mg/325 mg Tablet PO PRN (18:00)
[2019-03-22] MEDS: Diphenoxylate HCl/Atropine Tablet PO PRN (18:41)
[2019-03-22] MEDS: [UNRECOGNIZED DRUG - OTHER] IV SCH (20:20)
[2019-03-22] MEDS: AMINO ACIDS 15% IV SCH (20:20)
[2019-03-22] MEDS: DEXTROSE IV SCH (20:20)
[2019-03-22] MEDS: STERILE WATER IV SCH (20:20)
[2019-03-23] MEDS: Promethazine HCl 25 MG/ML VIAL IM/IV SCH ×4 (02:12→20:08)
[2019-03-23] MEDS: Ondansetron PF 4 MG/2 ML Vial IVP SCH ×4 (04:20→22:00)
[2019-03-23] MEDS: Levothyroxine Sodium 75 MCG TAB PO SCH (06:10)
[2019-03-23] MEDS: Lorazepam 2 MG/ML VIAL SLOW IVP PRN ×2 (06:28→23:34)
[2019-03-23] MEDS: Morphine 4 MG/ML VIAL SLOW IVP PRN (06:31)
[2019-03-23 06:47] LABS: #Lymphocytes 0.8 thou/uL (1.20-3.40); #Monocytes 0.2 thou/uL (0.11-0.59); #Neutrophils 1.7 thou/uL (1.40-6.50); %Basophils 1.2 % (0.0-1.0); %Eosinophils 1.4 % (0.0-10.0); %Lymphocytes 27.9 % (21.0-51.0); %Monocytes 6.7 % (0.0-10.0); %Neutrophils 62.8 % (42.0-75.0); Hemoglobin 9.7 g/dL (12.0-16.0); Mean Corpuscular Hemoglobin 30.1 pg (27.0-31.0); Mean Corpuscular Volume 85.8 fL (78.0-98.0); Mean Platelet Volume 9.3 fL (7.4-10.4); Platelet Count 26 thou/uL (130-400); RBC Distribution Width 14.1 % (11.5-14.5); Red Blood Cell (RBC) Count 3.24 mill/uL (4.20-5.40); White Blood Cell (WBC) Count 2.7 thou/uL (4.8-10.8)
[2019-03-23] MEDS: diphenhydrAMINE 25 MG CAP PO PRN ×2 (08:38→20:06)
[2019-03-23] MEDS: Liothyronine Sodium 5 MCG TAB PO SCH (08:39)
[2019-03-23] MEDS: Famotidine/PF 20 mg/2ml Vial SLOW IVP SCH ×2 (08:40→20:12)
[2019-03-23] MEDS: Hydrocortisone/Pramoxine (Proctofoam HC) 10 GM BOX PR SCH ×3 (08:45→20:11)
[2019-03-23] MEDS: Cefepime 2 GM in Sodium Chloride 0.9% 100 ML IVPB SCH ×3 (09:34→23:29)
[2019-03-23] MEDS: Dextrose 5 % And 0.9 % NaCl 1,000 ML IV SCH ×2 (11:32→20:10)
[2019-03-23] MEDS: DEXTROSE IV SCH (11:35)
[2019-03-23] MEDS: STERILE WATER IV SCH (11:35)
[2019-03-23] MEDS: AMINO ACIDS 15% IV SCH (11:35)
[2019-03-23] MEDS: [UNRECOGNIZED DRUG - OTHER] IV SCH (11:35)
--- NOTE | 2019-03-23 14:37 | PDOC.MOPN ---
Interval History: feels about the same. Has nausea/vomiting today. No diarrhea. - Vital Signs Vital Signs: Vital Signs (12 hours) Temp Pulse Resp BP Pulse Ox 03/23/19 08:14 98.4 F 96 16 133/65 97 Weight Admit Weight 125 lb 6.4 oz Weight 125 lb - Physical Exam General: Mild distress HEENT: Atraumatic, PERRLA, EOMI, Mucous membr. moist/pink Lungs: Clear to auscultation, Normal air movement Cardiovascular: Regular rate, Normal S1, Normal S2, No murmurs, Gallops, Rubs Abdomen: Normal bowel sounds, Soft, No tenderness, No hepatospenomegaly, No masses Extremities: No clubbing, No cyanosis, No edema, Normal pulses, No tenderness/ swelling Skin: No rashes Neurological: Normal speech - Labs Result Diagrams: 03/23/19 06:00 03/21/19 03:50 Lab results: Laboratory Results - last 24 hr 03/23/19 06:00: WBC 2.7 L, RBC 3.24 L, Hgb 9.7 L, Hct 27.8 L, MCV 85.8, MCH 30.1 , MCHC 35.0, RDW 14.1, Plt Count 26 L*, MPV 9.3, Neutrophils % 62.8, Neutrophils % (Manual) Not Reportable, Lymphocytes % 27.9, Monocytes % 6.7, Eosinophils % 1.4, Basophils % 1.2 H, Neutrophils # 1.7, Lymphocytes # 0.8 L, Monocytes # 0.2, Eosinophils # 0.0, Basophils # 0.0 Status: lab reviewed by me A/P - Problem (1) Neutropenia Current Visit: Yes Code(s): D70.9 - NEUTROPENIA, UNSPECIFIED Status: Acute (2) Anal cancer Current Visit: Yes Code(s): C21.0 - MALIGNANT NEOPLASM OF ANUS, UNSPECIFIED Status: Acute (3) Diarrhea Current Visit: Yes Code(s): R19.7 - DIARRHEA, UNSPECIFIED Status: Acute (4) UTI (urinary tract infection) Current Visit: Yes Status: Acute (5) Vomiting Current Visit: Yes Code(s): R11.10 - VOMITING, UNSPECIFIED Status: Acute - Plan Plan: continue PPN Add marinol for nausea supportive care.
--- NOTE | 2019-03-23 16:14 | PDOC.HOSPP ---
- Subjective Subjective: [place] a little better this morning. Ate a few bites, but the nausea returned. Diarrhea is better with the Lomotil. - Objective Vital Signs & Weight: Vital Signs (12 hours) Temp Pulse Resp BP Pulse Ox 03/23/19 08:14 98.4 F 96 16 133/65 97 Weight Admit Weight 125 lb 6.4 oz Weight 125 lb I&O: 03/22/19 03/23/19 03/24/19 06:59 06:59 06:59 Intake Total 1300 Balance 1300 Result Diagrams: 03/23/19 06:00 03/21/19 03:50 Hospitalist ROS - Medication Medications: Active Medications Generic Name Dose Route Start Last Admin Trade Name Freq PRN Reason Stop Dose Admin Acetaminophen 650 mg 03/15/19 16:14 03/22/19 03:38 Tylenol PO 650 mg Q4H PRN Administration Headache/Fever/Mild Pain (1-3) Acetaminophen 650 mg 03/15/19 16:14 03/18/19 15:03 Tylenol [place] 650 mg Q4H PRN Administration Headache/Fever/Mild Pain (1-3) Diphenhydramine HCl 25 mg 03/17/19 19:21 03/23/19 08:38 Benadryl PO 25 mg Q6H PRN Administration Itching & Insomnia Diphenoxylate HCl/Atropine 2 tab 03/15/19 16:17 03/22/19 18:41 Lomotil PO 2 tab QID PRN Administration Diarrhea/Loose Stools Famotidine 20 mg 03/15/19 21:00 03/23/19 08:40 Pepcid SLOW IVP 20 mg Q12HR AC Administration Hydrocortisone Acetate 25 mg 03/17/19 17:30 03/22/19 08:50 Anusol-Hc MD 25 mg BIDPRN PRN Administration Hemorrhoids Hydrocortisone/Pramoxine 0 gm 03/15/19 21:00 03/23/19 08:45 Proctofoam Hc MD Not Given TID AC Hydrocortisone/Pramoxine 0 gm 03/17/19 03:38 03/19/19 05:41 Analpram Hc MD 1 applic TID PRN Administration Anal/Rectal Irritations Dextrose/Sodium Chloride 1,000 mls @ 100 mls/hr 03/15/19 14:30 03/23/19 11:32 D5 0.9% Ns IV 1,000 mls .Q10H AC Administration Cefepime HCl 2 gm/ Sodium 100 mls @ 200 mls/hr 03/16/19 23:59 03/23/19 09:34 Chloride IVPB 100 mls 0800,1600,2359 AC Administration Amino Acids 283.33 ml/ Sterile 1,000 mls @ 75 mls/hr 03/22/19 19:00 03/23/19 11:35 Water 645.24 ml/ Dextrose/ IV 1,000 mls Water INF AC Administration Levothyroxine Sodium 75 mcg 03/16/19 06:00 03/23/19 06:10 Synthroid PO 75 mcg 0600 AC Administration Liothyronine Sodium 15 mcg 03/16/19 09:00 03/23/19 08:39 Cytomel PO 15 mcg QAM AC Administration Lorazepam 0.5 mg 03/15/19 14:29 03/23/19 06:28 Ativan SLOW IVP 0.5 mg Q8H PRN Administration Nausea Mineral Oil/White Petrolatum 0 gm 03/15/19 19:15 03/16/19 08:23 Aquaphor 99 Gm TOP 1 gm ASDIR AC Administration Morphine Sulfate 4 mg 03/18/19 10:59 03/23/19 06:31 Morphine SLOW IVP 4 mg Q2H PRN Administration Severe Pain (7-10) Ondansetron HCl 4 mg 03/19/19 16:00 03/23/19 10:40 Zofran IVP 4 mg Q6H AC Administration Oxycodone/Acetaminophen 1 tab 03/18/19 08:15 03/22/19 18:00 Percocet 5/325 PO 1 tab Q4H PRN Administration Moderate Pain (4-6) Prochlorperazine Maleate 5 mg 03/19/19 13:54 03/21/19 05:47 Compazine PO 5 mg Q6H PRN Administration Nausea/Vomiting Promethazine HCl 25 mg 03/19/19 14:00 03/23/19 15:12 Phenergan IM/IV 25 mg Q6H AC Administration Scopolamine 1.5 mg 03/19/19 08:30 03/22/19 08:53 Transderm Scop TD 1.5 mg Q3D AC Administration Sertraline HCl 25 mg 03/18/19 09:00 03/23/19 08:38 Zoloft PO 25 mg DAILY AC Administration Sodium Chloride 10 ml 03/16/19 21:00 03/23/19 08:45 Flush - Normal Saline IVF 10 ml Q12HR AC Administration Sodium Chloride 10 ml 03/16/19 09:41 03/20/19 08:50 Flush - Normal Saline IVF 10 ml PRN PRN Administration Saline Flush - Exam General Appearance: NAD, awake alert Heart: RRR, no murmur, no gallops, no rubs, normal peripheral pulses Respiratory: CTAB, no wheezes, no rales, no ronchi, normal chest expansion, no tachypnea, normal percussion Gastrointestinal: soft, non-distended, normal bowel sounds, tender to palpation (Diffusely.) Extremities: no edema Skin: normal turgor Musculoskeletal: normal tone, generalized weakness Psychiatric: normal affect, normal behavior, A&O x 3 Hosp A/P (1) 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, UNSPECIFIED Status: Acute (2) Diarrhea Code(s): R19.7 - DIARRHEA, UNSPECIFIED Status: Acute (3) HTN (hypertension) Code(s): I10 - ESSENTIAL (PRIMARY) HYPERTENSION Status: Acute (4) Neutropenia Code(s): D70.9 - NEUTROPENIA, UNSPECIFIED Status: Acute (5) Pancytopenia Code(s): D61.818 - OTHER PANCYTOPENIA Status: Acute (6) Pulmonary embolism Code(s): I26.99 - OTHER PULMONARY EMBOLISM WITHOUT ACUTE COR PULMONALE Status : Acute (7) UTI (urinary tract infection) Status: Acute (8) Vomiting Code(s): R11.10 - VOMITING, UNSPECIFIED Status: Acute (9) Fever Code(s): R50.9 - FEVER, UNSPECIFIED Status: Acute - Plan Neutopenia resolved. Still febrile. N/V persists. Diarrhea some better. Continue symptomatic treatment. Continue IV abx. Continue PPN. Lovenox held due to thrombocytopenia. Continue to try to increase activity. Advance diet as she can tolerate it. Continue Wound Care. Discussed with Oncology.
[2019-03-23] MEDS: Dronabinol 2.5 MG CAP PO SCH (17:25)
[2019-03-23] MEDS: oxyCODONE/Acetaminophen 5 mg/325 mg Tablet PO PRN (17:32)
[2019-03-23] MEDS: Loperamide HCl 2 MG CAP PO PRN (21:59)
[2019-03-23] MEDS: Diphenoxylate HCl/Atropine Tablet PO PRN (23:18)
[2019-03-23] MEDS: Amino Acids 4.25 %/Dextrose 5% 1,000 ML IV SCH (23:29)
[2019-03-24] MEDS: Promethazine HCl 25 MG/ML VIAL IM/IV SCH ×3 (02:06→15:00)
[2019-03-24] MEDS: Dextrose 5 % And 0.9 % NaCl 1,000 ML IV SCH ×3 (02:10→20:53)
[2019-03-24] MEDS ORDERED: Ondansetron PF 4 MG/2 ML Vial ONE (03:49)
[2019-03-24] MEDS ORDERED: Levothyroxine Sodium 75 MCG TAB ONE (05:40)
[2019-03-24] MEDS: Liothyronine Sodium 5 MCG TAB PO SCH (08:30)
[2019-03-24] MEDS: Dronabinol 2.5 MG CAP PO SCH ×2 (08:45→16:57)
[2019-03-24] MEDS: Hydrocortisone/Pramoxine (Proctofoam HC) 10 GM BOX PR SCH ×3 (09:00→20:08)
[2019-03-24] MEDS: Famotidine/PF 20 mg/2ml Vial SLOW IVP SCH ×2 (09:00→20:52)
[2019-03-24] MEDS: Lorazepam 2 MG/ML VIAL SLOW IVP PRN (09:05)
[2019-03-24] MEDS: Cefepime 2 GM in Sodium Chloride 0.9% 100 ML IVPB SCH ×3 (09:10→23:03)
[2019-03-24] MEDS: Ondansetron PF 4 MG/2 ML Vial IVP SCH ×3 (10:14→22:30)
--- NOTE | 2019-03-24 14:26 | PDOC.HOSPP ---
- Subjective Encounter Date: 03/24/19 Encounter Time: 14:25 Subjective: Ms. Hernandez was seen today in follow-up of nausea and vomiting, and diarrhea. She is feeling a little better today. She was able to eat a cracker, and she sat up at the side of the bed. - Objective Vital Signs & Weight: Vital Signs (12 hours) Temp Pulse Resp BP Pulse Ox 03/24/19 08:00 98.9 F 92 18 130/70 95 Weight Admit Weight 125 lb 6.4 oz Weight 125 lb I&O: 03/23/19 03/24/19 03/25/19 06:59 06:59 06:59 Intake Total 1700 Balance 1700 Result Diagrams: 03/23/19 06:00 03/21/19 03:50 Hospitalist ROS - Medication Medications: Active Medications Generic Name Dose Route Start Last Admin Trade Name Freq PRN Reason Stop Dose Admin Acetaminophen 650 mg 03/15/19 16:14 03/22/19 03:38 Tylenol PO 650 mg Q4H PRN Administration Headache/Fever/Mild Pain (1-3) Acetaminophen 650 mg 03/15/19 16:14 03/18/19 15:03 Tylenol [place] 650 mg Q4H PRN Administration Headache/Fever/Mild Pain (1-3) Diphenhydramine HCl 25 mg 03/17/19 19:21 03/23/19 20:06 Benadryl PO 25 mg Q6H PRN Administration Itching & Insomnia Diphenoxylate HCl/Atropine 2 tab 03/15/19 16:17 03/23/19 23:18 Lomotil PO 2 tab QID PRN Administration Diarrhea/Loose Stools Dronabinol 2.5 mg 03/23/19 16:30 03/23/19 17:25 Marinol PO 2.5 mg BID-AC AC Administration Famotidine 20 mg 03/15/19 21:00 03/23/19 20:12 Pepcid SLOW IVP Not Given Q12HR AC Hydrocortisone Acetate 25 mg 03/17/19 17:30 03/22/19 08:50 Anusol-Hc [place] 25 mg BIDPRN PRN Administration Hemorrhoids Hydrocortisone/Pramoxine 0 gm 03/15/19 21:00 03/23/19 20:11 Proctofoam Hc TX Not Given TID AC Hydrocortisone/Pramoxine 0 gm 03/17/19 03:38 03/19/19 05:41 Analpram Hc [place] 1 applic TID PRN Administration Anal/Rectal Irritations Dextrose/Sodium Chloride 1,000 mls @ 100 mls/hr 03/15/19 14:30 03/24/19 02:10 D5 0.9% Ns IV Not Given .Q10H AC Cefepime HCl 2 gm/ Sodium 100 mls @ 200 mls/hr 03/16/19 23:59 03/24/19 09:10 Chloride IVPB 100 mls 0800,1600,2359 AC Administration Amino Acids/Dextrose 1,000 mls @ 75 mls/hr 03/23/19 22:15 03/23/19 23:29 Clinimix 4.25/5 IV 1,000 mls INF AC Administration Levothyroxine Sodium 75 mcg 03/16/19 06:00 03/23/19 06:10 Synthroid PO 75 mcg 0600 AC Administration Liothyronine Sodium 15 mcg 03/16/19 09:00 03/23/19 08:39 Cytomel PO 15 mcg QAM AC Administration Loperamide HCl 2 mg 03/22/19 08:16 03/23/19 21:59 Imodium PO 2 mg PRN PRN Administration Diarrhea/Loose Stools Lorazepam 0.5 mg 03/15/19 14:29 03/23/19 23:34 Ativan SLOW IVP 0.5 mg Q8H PRN Administration Nausea Mineral Oil/White Petrolatum 0 gm 03/15/19 19:15 03/16/19 08:23 Aquaphor 99 Gm TOP 1 gm ASDIR AC Administration Morphine Sulfate 4 mg 03/18/19 10:59 03/23/19 06:31 Morphine SLOW IVP 4 mg Q2H PRN Administration Severe Pain (7-10) Ondansetron HCl 4 mg 03/19/19 16:00 03/23/19 22:00 Zofran IVP 4 mg Q6H AC Administration Oxycodone/Acetaminophen 1 tab 03/18/19 08:15 03/23/19 17:32 Percocet 5/325 PO 1 tab Q4H PRN Administration Moderate Pain (4-6) Prochlorperazine Maleate 5 mg 03/19/19 13:54 03/21/19 05:47 Compazine PO 5 mg Q6H PRN Administration Nausea/Vomiting Promethazine HCl 25 mg 03/19/19 14:00 03/24/19 02:06 Phenergan IM/IV 25 mg Q6H AC Administration Scopolamine 1.5 mg 03/19/19 08:30 03/22/19 08:53 Transderm Scop TD 1.5 mg Q3D AC Administration Sertraline HCl 25 mg 03/18/19 09:00 03/23/19 08:38 Zoloft PO 25 mg DAILY AC Administration Sodium Chloride 10 ml 03/16/19 21:00 03/23/19 20:11 Flush - Normal Saline IVF Not Given Q12HR AC Sodium Chloride 10 ml 03/16/19 09:41 03/20/19 08:50 Flush - Normal Saline IVF 10 ml PRN PRN Administration Saline Flush - Exam Eye: PERRL Heart: RRR, no murmur, no gallops, no rubs, normal peripheral pulses Respiratory: CTAB, no wheezes, no rales, no ronchi, normal chest expansion Gastrointestinal: soft, non-distended, normal bowel sounds, no palpable masses, tender to palpation (+ mild tenderness to palpation in the lower abdomen.) Extremities: 1+ LE edema Hosp A/P (1) Nausea vomiting and diarrhea Code(s): R11.2 - NAUSEA WITH VOMITING, UNSPECIFIED; R19.7 - DIARRHEA, UNSPECIFIED Status: Acute (2) 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, UNSPECIFIED Status: Acute (3) HTN (hypertension) Code(s): I10 - ESSENTIAL (PRIMARY) HYPERTENSION Status: Acute (4) Pancytopenia Code(s): D61.818 - OTHER PANCYTOPENIA Status: Acute - Plan * Nausea vomiting and diarrhea- this seems to be improving * Will continue Merinol scheduled, and change phenergan to as needed * HTN- blood pressure is stable * Pancytopenia- stable
[2019-03-24 16:09] LABS: Hemoglobin 8.9 g/dL (12.0-16.0); Mean Corpuscular Volume 85.2 fL (78.0-98.0); Red Blood Cell (RBC) Count 2.93 mill/uL (4.20-5.40); White Blood Cell (WBC) Count 2.3 thou/uL (4.8-10.8)
[2019-03-24 16:11] LABS: Mean Corpuscular HGB CONC 35.5 g/dL (32.0-36.0); Mean Corpuscular Hemoglobin 30.3 pg (27.0-31.0); RBC Distribution Width 14.3 % (11.5-14.5)
[2019-03-24 16:17] LABS: MDiff Complete? YES; Mean Platelet Volume 9.2 fL (7.4-10.4); Platelet Count 26 thou/uL (130-400)
[2019-03-24 16:18] LABS: Band 18 % (5-11); Eosinophils 1 % (0-10); Lymphocytes 33 % (21-51); Metamyelocyte 1 % (0-0); Monocytes 4 % (0-10); Neutrophil 42 % (42-75); Polychromasia SLIGHT = 2-3 cells (100X) (0-2/hpf)
[2019-03-24] MEDS: Morphine 4 MG/ML VIAL SLOW IVP PRN (20:51)
[2019-03-25] MEDS: Promethazine HCl 25 MG/ML VIAL IM/IV PRN ×2 (01:58→23:26)
[2019-03-25] MEDS: Ondansetron PF 4 MG/2 ML Vial IVP SCH ×5 (04:58→21:01)
[2019-03-25] MEDS: Levothyroxine Sodium 75 MCG TAB PO SCH ×2 (05:07→05:08)
[2019-03-25] MEDS: Dextrose 5 % And 0.9 % NaCl 1,000 ML IV SCH ×2 (06:18→18:04)
[2019-03-25 06:45] LABS: Hemoglobin 8.7 g/dL (12.0-16.0); Mean Corpuscular HGB CONC 35.9 g/dL (32.0-36.0); Mean Corpuscular Hemoglobin 30.6 pg (27.0-31.0); Mean Corpuscular Volume 85.3 fL (78.0-98.0); Mean Platelet Volume 8.7 fL (7.4-10.4); Platelet Count 29 thou/uL (130-400); RBC Distribution Width 13.8 % (11.5-14.5); Red Blood Cell (RBC) Count 2.86 mill/uL (4.20-5.40); White Blood Cell (WBC) Count 2.5 thou/uL (4.8-10.8)
[2019-03-25 07:45] LABS: Band 13 % (5-11); Lymphocytes 36 % (21-51); MDiff Complete? YES; Metamyelocyte 1 % (0-0); Monocytes 5 % (0-10); Myelocyte 1 % (0-0); Neutrophil 43 % (42-75); Platelet Morphology Comment Appears Decreased; Polychromasia SLIGHT = 2-3 cells (100X) (0-2/hpf)
[2019-03-25] MEDS: Liothyronine Sodium 5 MCG TAB PO SCH (08:47)
[2019-03-25] MEDS: Scopolamine 1.5 mg/72 hour Patch TD SCH (08:50)
[2019-03-25] MEDS: Cefepime 2 GM in Sodium Chloride 0.9% 100 ML IVPB SCH ×3 (08:52→23:23)
[2019-03-25] MEDS: Dronabinol 2.5 MG CAP PO SCH ×2 (08:58→16:37)
[2019-03-25] MEDS: Famotidine/PF 20 mg/2ml Vial SLOW IVP SCH (09:00)
[2019-03-25] MEDS: Hydrocortisone/Pramoxine (Proctofoam HC) 10 GM BOX PR SCH (10:04)
[2019-03-25] MEDS ORDERED: Dronabinol 2.5 MG CAP PO SCH (10:30)
--- NOTE | 2019-03-25 10:42 | PDOC.PALCO ---
Palliative Care Consult - Consult Details Requesting Physician: geraldo MERCADO Reason for Consult: symptom management Family Members Present: Patient mother - Pertinent HPI 49 year old female who is a patient of Dr Lo and is S/P chemo and radiation for anal cancer. Patient last chemo was 03/12. Secondary to intractable nausea and vomiting patient was attempted to be managed outpatient, however presented to the emergency room due to worsening nausea/vomiting/ dehydration. Evaluation and admission to the hospital for medical management. Consult to Palliative Care for assistance in symptom management. - Pertinent PMH Anal Cancer, Anxiety, GERD, Hypertension, Hypothroidism - Social History Smoking Status: Never smoker Smoking: no tobacco exposure Alcohol Use: none Drug Use History: none Living Situation: - Medications MAR Reviewed: Yes - Allergies Allergies/Adverse Reactions: Allergies Allergy/AdvReac Type Severity Reaction Status Date / Time adhesive Allergy itching, Verified 01/18/19 12:44 rash, blistering hydrocodone Allergy Verified 01/19/19 08:52 latex Allergy itching, Verified 01/18/19 12:44 rash - Subjective Awake, and alert, however appears delayed in thought pattern. In the course of the conversation patient became distraught and crying becuase she forgot "what had happened and why she was here". States that she was able to eat some small bites today, episodes of diarrhea last night. Denies vomiting or diarrhea today. Mild discomfort to perineum. - ROS Constitutional: alert, loss appetite, weakness Eyes: other (Negative for blurry vision, drainage) ENT: dry mouth Respiratory: other (Denies cough, shortness of breath) Cardiology: light headedness (with ambulation), other (Denies chest pain, palpitations) Gastrointestinal: diarrhea, nausea Genitourinary: frequency Neurological: changes in taste Psychological: memory changes - Objective Vital Signs: Vital Signs - Most Recent Temp Pulse Resp BP Pulse Ox 99.7 F H 94 16 134/68 95 03/25/19 08:20 03/25/19 08:20 03/25/19 08:20 03/25/19 08:20 03/25/19 08:20 Palliative Performance Scale: 40 - Physical Exam Constitutional: confusion, ill appearing HEENT: EOMI, moist MMs Deviation from normal: irritation to oral mucosa Respiratory: clear to auscultation bilateral, unlabored breathing Gastrointestinal: positive bowel sounds Musculoskeletal: pulses present Neurology: moves all 4 limbs Skin: cap refill <2 seconds Psychiatric: A&O x 3 Deviation from normal: Episodes of confusion and forgetfullness, appears to have mildly flat affec - Problem List (1) Palliative care encounter Code(s): Z51.5 - ENCOUNTER FOR PALLIATIVE CARE Current Visit: Yes Status: Acute (2) Depressed Code(s): F32.9 - MAJOR DEPRESSIVE DISORDER, SINGLE EPISODE, UNSPECIFIED Current Visit: Yes Status: Acute (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, UNSPECIFIED Current Visit: Yes Status: Acute (4) Diarrhea Code(s): R19.7 - DIARRHEA, UNSPECIFIED Current Visit: Yes Status: Acute (5) Nausea vomiting and diarrhea Code(s): R11.2 - NAUSEA WITH VOMITING, UNSPECIFIED; R19.7 - DIARRHEA, UNSPECIFIED Current Visit: Yes Status: Acute - Plan/Recommendations Plan: *Increase marinol *Eat foods that are room temp or cool/cold avoid hot meals until symptoms of nausea are mitigated *Discussed oral care and use of magic mouth wash *[place] with sour foods such as hard candy, lemon sorbet *Distraction techniques such as music Daniel Mena minister assistant to follow as well. [45] minutes spent on this encounter with >50% of the time in counseling and coordination of care. Thank you for this very appropriate consult.
--- NOTE | 2019-03-25 12:14 | PDOC.MOPN ---
Interval History: Appreciate recs from PC marinol dose increased continued n/v today continue IVF. PPN dc'd - Vital Signs Vital Signs: Vital Signs (12 hours) Temp Pulse Resp BP Pulse Ox 03/25/19 08:20 99.7 F H 94 16 134/68 95 03/25/19 08:00 95 03/25/19 04:38 99.8 F H 94 16 133/66 96 03/25/19 00:25 99.2 F 97 18 129/62 93 L Weight Admit Weight 125 lb 6.4 oz Weight 125 lb - Labs Result Diagrams: 03/25/19 06:25 03/21/19 03:50 Lab results: Laboratory Results - last 24 hr 03/25/19 06:25: WBC 2.5 L, RBC 2.86 L, Hgb 8.7 L, Hct 24.4 L, MCV 85.3, MCH 30.6 , MCHC 35.9, RDW 13.8, Plt Count 29 L*, MPV 8.7, Neutrophils % (Manual) 43, Band Neuts % (Manual) 13 H, Lymphocytes % (Manual) 36, Monocytes % (Manual) 5, Metamyelocytes % (Man) 1 H, Myelocytes % 1 H, Neutrophils # Not Reportable, Lymphocytes # Not Reportable, Plt Morphology Comment Appears Decreased L, Polychromasia SLIGHT = 2-3 cells 03/24/19 06:00: WBC 2.3 L, RBC 2.93 L, Hgb 8.9 L, Hct 25.0 L, MCV 85.2, MCH 30.3 , MCHC 35.5, RDW 14.3, Plt Count 26 L*, MPV 9.2, Neutrophils % (Manual) 42, Band Neuts % (Manual) 18 H, Lymphocytes % (Manual) 33, Monocytes % (Manual) 4, Eosinophils % (Manual) 1, Basophils % (Manual) 1, Metamyelocytes % (Man) 1 H, Neutrophils # Not Reportable, Polychromasia SLIGHT = 2-3 cells A/P - Problem (1) Neutropenia Current Visit: Yes Code(s): D70.9 - NEUTROPENIA, UNSPECIFIED Status: Acute (2) Anal cancer Current Visit: Yes Code(s): C21.0 - MALIGNANT NEOPLASM OF ANUS, UNSPECIFIED Status: Acute (3) Diarrhea Current Visit: Yes Code(s): R19.7 - DIARRHEA, UNSPECIFIED Status: Acute (4) UTI (urinary tract infection) Current Visit: Yes Status: Acute (5) Vomiting Current Visit: Yes Code(s): R11.10 - VOMITING, UNSPECIFIED Status: Acute
--- NOTE | 2019-03-25 17:39 | PDOC.HOSPP ---
- Subjective Encounter Date: 03/25/19 Encounter Time: 17:37 Subjective: Ms. Hernandez was seen today in follow-up of Nausea vomiting and diarrhea. She continues to complain of nausea. She has a flat affect, and her nurse reports that she has been in bed most of the day. - Objective Vital Signs & Weight: Vital Signs (12 hours) Temp Pulse Resp BP Pulse Ox 03/25/19 08:20 99.7 F H 94 16 134/68 95 03/25/19 08:00 95 Weight Admit Weight 125 lb 6.4 oz Weight 125 lb I&O: 03/24/19 03/25/19 03/26/19 06:59 06:59 06:59 Intake Total 1700 120 Balance 1700 120 Result Diagrams: 03/25/19 06:25 03/21/19 03:50 Hospitalist ROS - Medication Medications: Active Medications Generic Name Dose Route Start Last Admin Trade Name Freq PRN Reason Stop Dose Admin Acetaminophen 650 mg 03/15/19 16:14 03/22/19 03:38 Tylenol PO 650 mg Q4H PRN Administration Headache/Fever/Mild Pain (1-3) Acetaminophen 650 mg 03/15/19 16:14 03/18/19 15:03 Tylenol TX 650 mg Q4H PRN Administration Headache/Fever/Mild Pain (1-3) Diphenhydramine HCl 25 mg 03/17/19 19:21 03/23/19 20:06 Benadryl PO 25 mg Q6H PRN Administration Itching & Insomnia Diphenoxylate HCl/Atropine 2 tab 03/15/19 16:17 03/23/19 23:18 Lomotil PO 2 tab QID PRN Administration Diarrhea/Loose Stools Dronabinol 5 mg 03/25/19 16:30 03/25/19 16:37 Marinol PO 5 mg BID-AC AC Administration Hydrocortisone Acetate 25 mg 03/17/19 17:30 03/22/19 08:50 Anusol-Hc TX 25 mg BIDPRN PRN Administration Hemorrhoids Dextrose/Sodium Chloride 1,000 mls @ 100 mls/hr 03/15/19 14:30 03/25/19 06:18 D5 0.9% Ns IV 1,000 mls .Q10H AC Administration Cefepime HCl 2 gm/ Sodium 100 mls @ 200 mls/hr 03/16/19 23:59 03/25/19 16:03 Chloride IVPB 100 mls 0800,1600,2359 AC Administration Amino Acids/Dextrose 1,000 mls @ 75 mls/hr 03/23/19 22:15 03/23/19 23:29 Clinimix 4.25/5 IV 1,000 mls INF AC Administration Levothyroxine Sodium 75 mcg 03/16/19 06:00 03/25/19 05:08 Synthroid PO Not Given 0600 AC Liothyronine Sodium 15 mcg 03/16/19 09:00 03/25/19 08:47 Cytomel PO 15 mcg QAM AC Administration Loperamide HCl 2 mg 03/22/19 08:16 03/23/19 21:59 Imodium PO 2 mg PRN PRN Administration Diarrhea/Loose Stools Mineral Oil/White Petrolatum 0 gm 03/15/19 19:15 03/16/19 08:23 Aquaphor 99 Gm TOP 1 gm ASDIR AC Administration Morphine Sulfate 4 mg 03/18/19 10:59 03/24/19 20:51 Morphine SLOW IVP 4 mg Q2H PRN Administration Severe Pain (7-10) Ondansetron HCl 4 mg 03/19/19 16:00 03/25/19 16:04 Zofran IVP 4 mg Q6H AC Administration Oxycodone/Acetaminophen 1 tab 03/18/19 08:15 03/23/19 17:32 Percocet 5/325 PO 1 tab Q4H PRN Administration Moderate Pain (4-6) Pantoprazole Sodium 40 mg 03/25/19 09:00 03/25/19 10:36 Protonix PO 40 mg DAILY AC Administration Prochlorperazine Maleate 5 mg 03/19/19 13:54 03/21/19 05:47 Compazine PO 5 mg Q6H PRN Administration Nausea/Vomiting Promethazine HCl 25 mg 03/24/19 14:30 03/25/19 01:58 Phenergan IM/IV 25 mg Q6H PRN Administration Nausea/Vomiting Scopolamine 1.5 mg 03/19/19 08:30 03/25/19 08:50 Transderm Scop TD 1.5 mg Q3D AC Administration Sodium Chloride 10 ml 03/16/19 21:00 03/25/19 12:02 Flush - Normal Saline IVF 10 ml Q12HR AC Administration Sodium Chloride 10 ml 03/16/19 09:41 03/25/19 12:01 Flush - Normal Saline IVF 10 ml PRN PRN Administration Saline Flush - Exam Eye: PERRL Heart: RRR, no murmur, no gallops, no rubs, normal peripheral pulses Respiratory: CTAB, no wheezes, no rales, no ronchi, normal chest expansion Gastrointestinal: soft, non-tender, non-distended, normal bowel sounds, no palpable masses, no hepatomegaly Extremities: no cyanosis, no clubbing, no edema Hosp A/P (1) Nausea vomiting and diarrhea Code(s): R11.2 - NAUSEA WITH VOMITING, UNSPECIFIED; R19.7 - DIARRHEA, UNSPECIFIED Status: Acute (2) 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, UNSPECIFIED Status: Acute (3) HTN (hypertension) Code(s): I10 - ESSENTIAL (PRIMARY) HYPERTENSION Status: Acute (4) Pancytopenia Code(s): D61.818 - OTHER PANCYTOPENIA Status: Acute (5) Depression Code(s): F32.9 - MAJOR DEPRESSIVE DISORDER, SINGLE EPISODE, UNSPECIFIED Status : Chronic - Plan * Nausea vomiting and diarrhea- this seems to be improving * Will continue Marinol. * HTN- blood pressure is stable * Pancytopenia- stable * Depression- she is on a relatively low dose of Zoloft- will increase the dose to 50mg
--- NOTE | 2019-03-25 19:06 | PQF ---
[employer] [place] Hubbard, RICK CAPPS [id number] CLINICAL DOCUMENTATION IMPROVEMENT CLARIFICATION FORM: ICD-10 Updated PLEASE DO AN ADDENDUM TO THE PROGRESS NOTE WITH ANY DOCUMENTATION UPDATES OR ADDITIONS AND CARRY THROUGH TO DC SUMMARY. THANK YOU. Date: 03/25/19 ATTN: DR BENJAMIN Please exercise your independent, professional judgment in responding to the clarification form. Clinical indicators are provided on the bottom of this form for your review Please check appropriate box(s): [X ] Protein Calorie Malnutrition: [X ] Mild [ ] Moderate [ ] Severe [ ] Other Malnutrition (please specify) __ [ ] Other diagnosis [ ] Unable to determine In addition, please specify: Present on Admission (POA): [X ] Yes [ ] No [ ] Unable to determine CLINICAL INDICATORS - SIGNS / SYMPTOMS / LABS / RESULTS AND LOCATION IN MR BMI of 20.2 - 03/25 PER VITALS Two or More of the Following: Unintentional Insufficient Energy Intake - 03/16 NUTRTION NOT E- NO APPETITE, NOT MEETING CALORIE OR PROTEIN REQUIREMENTS Weight Loss- 03/16 NUTRITION NOTE - 2-1# weight loss RISK FACTORS / RESULTS AND LOCATION IN MR Change in appetite / nausea / vomiting / diarrhea - 03/16 H&P - n/v, diarrhea Inability to consume adequate caloric intake - 03/16 nutrition note Chronic illness 03/16 H&P - anal cancer Medication- 03/16 h&p - chemo TREATMENT / RESULTS AND LOCATION IN MR Dietary consul - 03/16 completet Nutritional supplements- 03/16 PER ORDERS - ENSURE SHAKES BID Appetite stimulant - medication - 03/25 PER ORDERS - MARINOL 5 MG PO BID AC AC Lidia Ho [employer]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
--- NOTE | 2019-03-25 19:22 | PQF ---
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 THANK YOU. DATE: 03/25/19 ATTN: dr peng Please exercise your independent, professional judgment in responding to the clarification form. Clinical indicators are provided on the bottom of this form for your review Please check appropriate box(s): Pancytopenia due to: [ ] Pancytopenia [X ] Pancytopenia due to Chemotherapy/antineoplastic drugs [ ] Pancytopenia due to other drug (please specify if known): [ ] Other diagnosis [ ] Unable to determine In addition, please specify: Present on Admission (POA): [ X ] Yes [ ] No [ ] Unable to determine For continuity of documentation, please document condition throughout progress notes and discharge summary. Thank You. CLINICAL INDICATORS - SIGNS / SYMPTOMS / LABS/ RESULTS AND LOCATION IN MR Decreased WBC - 12/2 per lab 2.7 Decreased RBC - 12/2 per lab 3.06 Decreased PLT- 12/2 per lab 27 Fever - 12/ progressnote Generalized weakness- 12/ progress note RISK FACTORS / RESULTS AND LOCATION IN MR Cancer - 03/15 H&P - anal ancer Chemotherapy - 03/15 H&P Drugs- 03/15 h&p - mitomycin TREATMENT / RESULTS AND LOCATION IN MR Transfusions - 03/18, 03/21, - per orders 2 units prbc Monitor CBC - 03/16-03/25 daily per orders (This form is maintained as a part of the permanent medical record) 2014 [employer]. All Rights Reserved Lidia [email or web address] [not provided] MTDD
[2019-03-26] MEDS: Ondansetron PF 4 MG/2 ML Vial IVP SCH ×4 (04:23→20:31)
[2019-03-26] MEDS: Dextrose 5 % And 0.9 % NaCl 1,000 ML IV SCH ×2 (04:23→15:34)
[2019-03-26] MEDS: Levothyroxine Sodium 75 MCG TAB PO SCH (06:00)
[2019-03-26 07:24] LABS: #Lymphocytes 1.5 thou/uL (1.20-3.40); #Monocytes 0.2 thou/uL (0.11-0.59); #Neutrophils 1.5 thou/uL (1.40-6.50); %Basophils 1.2 % (0.0-1.0); %Eosinophils 0.6 % (0.0-10.0); %Lymphocytes 45.6 % (21.0-51.0); %Neutrophils 47.5 % (42.0-75.0); Hemoglobin 9.8 g/dL (12.0-16.0); Mean Corpuscular HGB CONC 35.7 g/dL (32.0-36.0); Mean Corpuscular Hemoglobin 30.4 pg (27.0-31.0); Mean Corpuscular Volume 85.1 fL (78.0-98.0); Mean Platelet Volume 8.7 fL (7.4-10.4); Platelet Count 40 thou/uL (130-400); RBC Distribution Width 13.9 % (11.5-14.5); Red Blood Cell (RBC) Count 3.22 mill/uL (4.20-5.40); White Blood Cell (WBC) Count 3.2 thou/uL (4.8-10.8)
[2019-03-26] MEDS: Promethazine HCl 25 MG/ML VIAL IM/IV PRN (07:32)
[2019-03-26] MEDS: Dronabinol 2.5 MG CAP PO SCH (08:42)
[2019-03-26] MEDS: Liothyronine Sodium 5 MCG TAB PO SCH (08:43)
[2019-03-26] MEDS: Cefepime 2 GM in Sodium Chloride 0.9% 100 ML IVPB SCH (08:45)
[2019-03-26] MEDS ORDERED: Activase 2 MG VIAL CATH SCH (12:30)
--- NOTE | 2019-03-26 13:31 | PDOC.MOPN ---
Interval History: More alert. States she feels groggy from the medications. Intermittent nausea. - Vital Signs Vital Signs: Vital Signs (12 hours) Temp Pulse Resp BP Pulse Ox 03/26/19 08:00 98.7 F 94 16 141/76 H 96 Weight Admit Weight 125 lb 6.4 oz Weight 125 lb - Physical Exam General: Alert, Oriented x3, No acute distress HEENT: Atraumatic, PERRLA, EOMI, Mucous membr. moist/pink Lungs: Clear to auscultation, Normal air movement Cardiovascular: Regular rate, Normal S1, Normal S2, No murmurs, Gallops, Rubs Abdomen: Normal bowel sounds, Soft, No tenderness, No hepatospenomegaly, No masses Extremities: No clubbing, No cyanosis, No edema, Normal pulses, No tenderness/ swelling Neurological: Normal speech Psych/Mental Status: Other (depressed) - Labs Result Diagrams: 03/26/19 06:44 03/21/19 03:50 Lab results: Laboratory Results - last 24 hr 03/26/19 06:44: WBC 3.2 L, RBC 3.22 L, Hgb 9.8 L, Hct 27.4 L, MCV 85.1, MCH 30.4 , MCHC 35.7, RDW 13.9, Plt Count 40 L, MPV 8.7, Neutrophils % 47.5, Lymphocytes % 45.6, Monocytes % 5.0, Eosinophils % 0.6, Basophils % 1.2 H, Neutrophils # 1.5 , Lymphocytes # 1.5, Monocytes # 0.2, Eosinophils # 0.0, Basophils # 0.0 Status: lab reviewed by me A/P - Problem (1) Neutropenia Current Visit: Yes Code(s): D70.9 - NEUTROPENIA, UNSPECIFIED Status: Acute (2) Anal cancer Current Visit: Yes Code(s): C21.0 - MALIGNANT NEOPLASM OF ANUS, UNSPECIFIED Status: Acute (3) Diarrhea Current Visit: Yes Code(s): R19.7 - DIARRHEA, UNSPECIFIED Status: Acute (4) UTI (urinary tract infection) Current Visit: Yes Status: Acute (5) Vomiting Current Visit: Yes Code(s): R11.10 - VOMITING, UNSPECIFIED Status: Acute - Plan Plan: resume PPN, patient not eating much. Change marinol to prn dc phenergan, ativan Discussed OOB to chair TID Ambulate hallways.
--- NOTE | 2019-03-26 15:27 | PRG ---
DATE OF SERVICE: 03/26/2019 SUBJECTIVE: The patient is seen and examined at the bedside. She is still complaining about some nausea and vomiting. She does not have any diarrhea anymore. She has not had any bowel movement for the last 3 days. OBJECTIVE: VITAL SIGNS: Blood pressure is 141/76, pulse is 94, temperature is 98.7, respiratory rate is 16, O2 saturation is 96% on room air. GENERAL: She looks sick and tired. HEENT: Her pupils are responding to light properly. Sclerae are nonicteric. Conjunctivae palish. Oral mucosa is slightly dry. NECK: Supple. LUNGS: Clear. HEART: S1, S2 normal. No S3. No S4. ABDOMEN: Tender to palpation in the left side. No guarding. No masses. EXTREMITIES: No clubbing, cyanosis, or edema. NEUROLOGIC: She follows my commands. She moves all 4 extremities. There is no any motor deficits. LABORATORY DATA: White count of 3.2, hemoglobin 9.8, hematocrit 27.4, platelet count is 40,000. Microbiology, no new reports. IMPRESSION: 1. Persistent nausea and vomiting. 2. Anorexia secondary to number one. 3. Anal cancer, status post chemo therapy with mitomycin and 5-FU approximately 2 weeks ago. 4. Pancytopenia, improving. 5. Depression. PLAN: I am going to stop her sertraline, stop her cefepime, stop scopolamine. Her TPN was restarted by Oncology team. We are going to start her on Florastor twice a day. We will get BMP and phosphorus level. We will get labs tomorrow morning. Job ID: [id number]
[2019-03-26 16:05] LABS: Anion Gap 7 mmol/L (10-20); BUN (Urea Nitrogen) Less than 4 mg/dL (9.8-20.1); Calc. Creatinine Clearance 132 mL/min (70-130); Calcium 7.7 mg/dL (7.8-10.44); Carbon Dioxide 36 mmol/L (22-29); Chloride 97 mmol/L (98-107); Estimated GFR-MDRD Greater than 90; Glucose 137 mg/dL (70-105); Sodium 138 mmol/L (136-145)
[2019-03-26 16:07] LABS: Phosphorus 1.5 mg/dL (2.3-4.7); Potassium 2.1 mmol/L (3.5-5.1)
[2019-03-26] MEDS: Amino Acids 4.25 %/Dextrose 5% 1,000 ML IV SCH (16:44)
[2019-03-26] MEDS ORDERED: Potassium Phosphate 30 MMOL in Sodium Chloride 0.9% 500 ML IVPB SCH (17:00)
[2019-03-26] MEDS ORDERED: Magnesium 2 GM/50 ML 2 GM in Premix Bag 1 BAG IVPB SCH (18:00)
[2019-03-26] MEDS: Potassium Chloride 10 MEQ in Premix Bag 1 BAG IVPB SCH ×2 (18:06→21:35)
[2019-03-26] MEDS: Prochlorperazine Maleate 5 MG TAB PO PRN (19:37)
[2019-03-26] MEDS: Saccharomyces boulardii 250 MG CAP PO SCH (21:39)
[2019-03-27] MEDS: Potassium Chloride 10 MEQ in Premix Bag 1 BAG IVPB SCH ×6 (01:53→22:00)
[2019-03-27] MEDS: Dextrose 5 % And 0.9 % NaCl 1,000 ML IV SCH ×3 (04:00→17:37)
[2019-03-27] MEDS: Levothyroxine Sodium 75 MCG TAB PO SCH (04:37)
[2019-03-27] MEDS: Ondansetron PF 4 MG/2 ML Vial IVP SCH ×4 (04:37→22:01)
[2019-03-27 05:08] LABS: #Lymphocytes 1.2 thou/uL (1.20-3.40); #Monocytes 0.2 thou/uL (0.11-0.59); #Neutrophils 1.3 thou/uL (1.40-6.50); %Basophils 0.6 % (0.0-1.0); %Eosinophils 0.6 % (0.0-10.0); %Lymphocytes 42.7 % (21.0-51.0); %Monocytes 8.6 % (0.0-10.0); %Neutrophils 47.5 % (42.0-75.0); Hemoglobin 8.5 g/dL (12.0-16.0); Mean Corpuscular HGB CONC 35.7 g/dL (32.0-36.0); Mean Corpuscular Hemoglobin 30.2 pg (27.0-31.0); Mean Corpuscular Volume 84.4 fL (78.0-98.0); Mean Platelet Volume 8.3 fL (7.4-10.4); Platelet Count 39 thou/uL (130-400); RBC Distribution Width 13.7 % (11.5-14.5); Red Blood Cell (RBC) Count 2.82 mill/uL (4.20-5.40); White Blood Cell (WBC) Count 2.7 thou/uL (4.8-10.8)
[2019-03-27 05:24] LABS: Anion Gap 7 mmol/L (10-20); BUN (Urea Nitrogen) 5 mg/dL (9.8-20.1); Calc. Creatinine Clearance 127 mL/min (70-130); Calcium 7.5 mg/dL (7.8-10.44); Carbon Dioxide 35 mmol/L (22-29); Chloride 97 mmol/L (98-107); Estimated GFR-MDRD Greater than 90; Glucose 126 mg/dL (70-105); Magnesium 1.8 mg/dL (1.6-2.6); Phosphorus 2.9 mg/dL (2.3-4.7); Potassium 2.2 mmol/L (3.5-5.1); Sodium 137 mmol/L (136-145)
[2019-03-27] MEDS: Amino Acids 4.25 %/Dextrose 5% 1,000 ML IV SCH (06:11)
[2019-03-27] MEDS: diphenhydrAMINE 25 MG CAP PO PRN (07:48)
[2019-03-27] MEDS ORDERED: Docusate 100 MG CAP PO SCH (08:00)
[2019-03-27] MEDS ORDERED: Potassium Chloride 20 MEQ TAB PO SCH ×3 (08:00→15:00)
[2019-03-27] MEDS ORDERED: Aluminum & Magnesium Hydroxide 60 ML, Lidocaine 2% Viscous Solution 30 ML, diphenhydrAM... SSW PRN (08:50)
[2019-03-27] MEDS: Saccharomyces boulardii 250 MG CAP PO SCH ×3 (09:26→23:27)
[2019-03-27] MEDS: Liothyronine Sodium 5 MCG TAB PO SCH (09:26)
--- NOTE | 2019-03-27 10:22 | PRG ---
DATE OF SERVICE: 03/27/2019 SUBJECTIVE: The patient is seen and examined at the bedside. Her family member is present during this visit in the room. She feels somewhat better. She has less nausea. OBJECTIVE: VITAL SIGNS: Blood pressure is 142/78, pulse is 97, temperature is 98.7, maximal temperature is 99.2, respiratory rate is 16, O2 saturation is 98% on room air. HEENT: Her skin of the face looks better. Sclerae are nonicteric. Conjunctivae are palish. Oral mucosa; no ulcers, this was directly visualized. LUNGS: Clear. HEART: S1 and S2 are normal. ABDOMEN: Tender in the epigastric area to palpation. Peristalsis present. No guarding. No masses. EXTREMITIES: No clubbing, cyanosis, or edema. NEUROLOGIC: She follows my commands. She moves her all 4 extremities. There are no any motor deficits. LABORATORY DATA: Showed white count of 2.7, hemoglobin of 8.5, hematocrit 23.8, platelet count is 39,000. Chemistry; sodium of 137, potassium 2.2, chloride 97, carbon dioxide 35, BUN of 5, creatinine 0.47, glucose 126, calcium 7.5, phosphorus 2.9, and magnesium 1.8. IMPRESSION: 1. Persistent nausea and vomiting, somewhat better today. Yesterday, I stopped several medications which could cause her nausea, although she still has some abdominal discomfort in the epigastric area, and we will keep close eye on her. If she does not improved in the next 24 hours, I would recommend to get GI evaluation. 2. Anorexia secondary to #1. The patient is on peripheral parenteral nutrition. 3. Severe hypokalemia, hyponatremia, and hypophosphatemia. Her phosphorus and magnesium are replaced. Today, the levels are back to normal range, but potassium is still very low at 2.2. We are going to try potassium orally 40 mEq x2 doses by 6 hours and IV K-runs 10 mEq each every 4 hours x4. 4. Anal cancer, status post chemotherapy with mitomycin and 5-FU approximately 2 weeks ago. 5. Leukopenia with some neutropenia. We are going to start her on neutropenic precautions. 6. Pancytopenia. 7. Depression. 8. Deconditioning. PLAN: Plan is to discuss the case with Dr. Amanda, who is on-call today. Her antibiotic was stopped yesterday. Her blood cultures came back again negative. For the last few days, she is running low-grade temperature. We will continue her potassium replacement today. If she tolerates her oral potassium, it is great. If not, she will have to have IV potassium replaced in several doses. We will follow up this closely. We will get PT and OT to work with her, and we will continue her Florastor started yesterday twice a day, and we will try to avoid any opioids, and we will start her on stool softener since she did not have any bowel movements for the last 3 days. Job ID: [id number]
[2019-03-27] MEDS: Loperamide HCl 2 MG CAP PO PRN (12:32)
[2019-03-27 19:00] LABS: BUN (Urea Nitrogen) 5 mg/dL (9.8-20.1); Calc. Creatinine Clearance 124 mL/min (70-130); Calcium 7.9 mg/dL (7.8-10.44); Estimated GFR-MDRD Greater than 90; Glucose 114 mg/dL (70-105)
[2019-03-27 19:09] LABS: Anion Gap 9 mmol/L (10-20); Carbon Dioxide 34 mmol/L (22-29); Chloride 98 mmol/L (98-107); Potassium 3.1 mmol/L (3.5-5.1); Sodium 138 mmol/L (136-145)
[2019-03-28] MEDS: Ondansetron PF 4 MG/2 ML Vial IVP SCH ×4 (04:14→21:44)
[2019-03-28] MEDS: diphenhydrAMINE 25 MG CAP PO PRN ×3 (04:14→15:07)
[2019-03-28 04:51] LABS: #Lymphocytes 1.1 thou/uL (1.20-3.40); #Monocytes 0.2 thou/uL (0.11-0.59); #Neutrophils 1.5 thou/uL (1.40-6.50); %Basophils 0.6 % (0.0-1.0); %Eosinophils 0.4 % (0.0-10.0); %Monocytes 8.1 % (0.0-10.0); Hemoglobin 8.9 g/dL (12.0-16.0); Mean Corpuscular Hemoglobin 29.8 pg (27.0-31.0); Mean Corpuscular Volume 85.3 fL (78.0-98.0); Mean Platelet Volume 9.2 fL (7.4-10.4); Platelet Count 47 thou/uL (130-400); Red Blood Cell (RBC) Count 2.98 mill/uL (4.20-5.40); White Blood Cell (WBC) Count 2.8 thou/uL (4.8-10.8)
[2019-03-28 05:10] LABS: Anion Gap 9 mmol/L (10-20); BUN (Urea Nitrogen) 6 mg/dL (9.8-20.1); Calc. Creatinine Clearance 119 mL/min (70-130); Calcium 8.2 mg/dL (7.8-10.44); Carbon Dioxide 31 mmol/L (22-29); Chloride 101 mmol/L (98-107); Estimated GFR-MDRD Greater than 90; Glucose 119 mg/dL (70-105); Magnesium 1.6 mg/dL (1.6-2.6); Phosphorus 1.8 mg/dL (2.3-4.7); Sodium 138 mmol/L (136-145)
[2019-03-28] MEDS ORDERED: Potassium Phosphate 30 MMOL in Sodium Chloride 0.9% 500 ML IVPB SCH ×3 (05:15→14:00)
[2019-03-28] MEDS: Levothyroxine Sodium 75 MCG TAB PO SCH (06:09)
[2019-03-28] MEDS ORDERED: Potassium Chloride 10 MEQ in Premix Bag 1 BAG IVPB SCH (07:15)
[2019-03-28] MEDS: Dextrose 5 % And 0.9 % NaCl 1,000 ML IV SCH ×2 (07:23→08:25)
[2019-03-28] MEDS: Liothyronine Sodium 5 MCG TAB PO SCH (08:25)
[2019-03-28] MEDS: Saccharomyces boulardii 250 MG CAP PO SCH ×2 (08:26→21:44)
[2019-03-28] MEDS: Potassium Chloride 20 MEQ TAB PO SCH ×2 (08:26→12:55)
[2019-03-28] MEDS: Amino Acids 4.25 %/Dextrose 5% 1,000 ML IV SCH (10:59)
--- NOTE | 2019-03-28 11:40 | PRG ---
DATE OF SERVICE: 03/28/2019 SUBJECTIVE: The patient is seen and examined at the bedside. She looks significantly better. Her nausea has almost completely gone. She was able to even eat a little bit of food. She feels significantly better. Her abdominal discomfort has gone. OBJECTIVE: VITAL SIGNS: Blood pressure is 127/69, pulse is 88, temperature is 98.1, respirations 16, O2 saturation is 99% on room air. SKIN: Looks significantly better. HEENT: Her face is more rested and her eyes are PERRLA. Sclerae are nonicteric. Oral mucosa is moist. LUNGS: Clear. HEART: S1 and S2, normal. ABDOMEN: Soft, nontender. Bowel sounds are present. EXTREMITIES: No clubbing, cyanosis, or edema. NEUROLOGIC: She follows my commands. She moves her all 4 extremities. LABORATORY DATA: Showed a white count of 2.8, hemoglobin of 8.9, hematocrit 25.4, platelet count is up to 47,000. Sodium of 138, potassium 3.0, chloride 101, CO2 of 31, BUN 6, creatinine 0.50, glycemia is ranging from 114 to 137, phosphorus is 1.8, calcium 8.2, and magnesium 1.6. Blood culture, no new findings and negative. IMPRESSION: 1. Persistent nausea and vomiting, improved significantly to the point that she is able to eat a little bit of food. 2. Severe hypokalemia, hypophosphatemia, and hypomagnesemia, improved with supplementation. She still needs supplementation of potassium orally 40 mEq x2 doses and one K-run with 10 mEq today. We will check her labs tomorrow morning and we will get her up and ambulate. 3. Anal cancer, status post chemotherapy with mitomycin and 5-FU, approximately 2 weeks ago. 4. Leukopenia with some neutropenia, improved. Her antibiotic was stopped yesterday. I do not see any need for antibiotic at this point. 5. Depression. 6. Deconditioning. Job ID: [id number]
[2019-03-28] MEDS: Loperamide HCl 2 MG CAP PO PRN (18:29)
[2019-03-29] MEDS: diphenhydrAMINE 25 MG CAP PO PRN ×4 (00:25→22:28)
[2019-03-29] MEDS: Dextrose 5 % And 0.9 % NaCl 1,000 ML IV SCH ×3 (00:38→21:09)
[2019-03-29] MEDS: Loperamide HCl 2 MG CAP PO PRN (03:46)
[2019-03-29] MEDS: Ondansetron PF 4 MG/2 ML Vial IVP SCH ×4 (03:46→22:28)
[2019-03-29] MEDS: Levothyroxine Sodium 75 MCG TAB PO SCH (05:08)
[2019-03-29 05:15] LABS: #Basophils 0.1 thou/uL (0.0-0.2); #Lymphocytes 1.2 thou/uL (1.20-3.40); #Monocytes 0.3 thou/uL (0.11-0.59); #Neutrophils 1.3 thou/uL (1.40-6.50); %Basophils 2.9 % (0.0-1.0); %Eosinophils 1.1 % (0.0-10.0); %Lymphocytes 41.3 % (21.0-51.0); %Monocytes 10.2 % (0.0-10.0); %Neutrophils 44.5 % (42.0-75.0); Hemoglobin 8.2 g/dL (12.0-16.0); Mean Corpuscular HGB CONC 35.2 g/dL (32.0-36.0); Mean Corpuscular Hemoglobin 30.1 pg (27.0-31.0); Mean Corpuscular Volume 85.4 fL (78.0-98.0); Mean Platelet Volume 7.5 fL (7.4-10.4); Platelet Count 75 thou/uL (130-400); RBC Distribution Width 13.7 % (11.5-14.5); Red Blood Cell (RBC) Count 2.73 mill/uL (4.20-5.40)
[2019-03-29 06:26] LABS: Anion Gap 8 mmol/L (10-20); BUN (Urea Nitrogen) 6 mg/dL (9.8-20.1); Calc. Creatinine Clearance 119 mL/min (70-130); Carbon Dioxide 29 mmol/L (22-29); Chloride 103 mmol/L (98-107); Estimated GFR-MDRD Greater than 90; Glucose 102 mg/dL (70-105); Phosphorus 3.2 mg/dL (2.3-4.7); Potassium 3.9 mmol/L (3.5-5.1); Sodium 136 mmol/L (136-145)
[2019-03-29] MEDS: Liothyronine Sodium 5 MCG TAB PO SCH (09:22)
[2019-03-29] MEDS: Saccharomyces boulardii 250 MG CAP PO SCH ×2 (09:22→21:04)
--- NOTE | 2019-03-29 14:20 | PDOC.MOPN ---
Interval History: States she is eating, bowels ok. Only complains of pain in perineum from XRT - Vital Signs Vital Signs: Vital Signs (12 hours) Temp Pulse Resp BP BP Pulse Ox 03/29/19 11:16 98.1 F 100 22 H 157/79 H 100 03/29/19 09:20 98.6 F 102 H 21 H 147/72 H 98 03/29/19 04:00 98.0 F 96 18 152/76 H 96 Weight Admit Weight 125 lb 6.4 oz Weight 125 lb - Physical Exam General: Alert, Oriented x3, No acute distress HEENT: Atraumatic, PERRLA, EOMI, Mucous membr. moist/pink Lungs: Clear to auscultation, Normal air movement Cardiovascular: Regular rate, Normal S1, Normal S2, No murmurs, Gallops, Rubs Abdomen: Normal bowel sounds, Soft, No tenderness, No hepatospenomegaly, No masses Extremities: No clubbing, No cyanosis, No edema, Normal pulses, No tenderness/ swelling Skin: No rashes, No significant lesion Neurological: Normal gait, Normal speech, Strength at 5/5 X4 ext, Normal tone, Sensation intact, Cranial nerves 3-12 NL, Reflexes 2+ Psych/Mental Status: Mental status NL, Mood NL - Labs Result Diagrams: 03/29/19 04:25 03/29/19 04:25 Lab results: Laboratory Results - last 24 hr 03/29/19 04:25: Sodium 136, Potassium 3.9, Chloride 103, Carbon Dioxide 29, Anion Gap 8 L, BUN 6 L, Creatinine 0.50 L, Estimated GFR (MDRD) Greater than 90 , Glucose 102, Calcium 8.0, Phosphorus 3.2 03/29/19 04:25: WBC 3.0 L, RBC 2.73 L, Hgb 8.2 L, Hct 23.3 L, MCV 85.4, MCH 30.1 , MCHC 35.2, RDW 13.7, Plt Count 75 L, MPV 7.5, Neutrophils % 44.5, Neutrophils % (Manual) Not Reportable, Lymphocytes % 41.3, Monocytes % 10.2 H, Eosinophils % 1.1, Basophils % 2.9 H, Neutrophils # 1.3 L, Lymphocytes # 1.2, Monocytes # 0.3, Eosinophils # 0.0, Basophils # 0.1 Status: lab reviewed by me A/P - Problem (1) Neutropenia Current Visit: Yes Code(s): D70.9 - NEUTROPENIA, UNSPECIFIED Status: Acute (2) Anal cancer Current Visit: Yes Code(s): C21.0 - MALIGNANT NEOPLASM OF ANUS, UNSPECIFIED Status: Acute (3) Diarrhea Current Visit: Yes Code(s): R19.7 - DIARRHEA, UNSPECIFIED Status: Acute (4) UTI (urinary tract infection) Current Visit: Yes Status: Acute (5) Vomiting Current Visit: Yes Code(s): R11.10 - VOMITING, UNSPECIFIED Status: Acute - Plan Plan: PPN off, taking po neutropenia resolved. ANC 1.3-1.5 Antibiotics completed. IVF off as taking po Home today or tomorrow.
[2019-03-29] MEDS: Metoprolol Tartrate 50 MG TAB PO SCH (21:08)
[2019-03-30 03:31] VITALS: TEMP 98.3
[2019-03-30] MEDS: Ondansetron PF 4 MG/2 ML Vial IVP SCH ×2 (04:43→09:38)
[2019-03-30] MEDS: diphenhydrAMINE 25 MG CAP PO PRN (04:43)
[2019-03-30] MEDS: Levothyroxine Sodium 75 MCG TAB PO SCH (04:44)
[2019-03-30 05:07] LABS: #Lymphocytes 1.7 thou/uL (1.20-3.40); #Monocytes 0.4 thou/uL (0.11-0.59); %Eosinophils 0.4 % (0.0-10.0); %Lymphocytes 40.9 % (21.0-51.0); %Monocytes 8.8 % (0.0-10.0); %Neutrophils 49.9 % (42.0-75.0); Hemoglobin 9.2 g/dL (12.0-16.0); Mean Corpuscular HGB CONC 35.4 g/dL (32.0-36.0); Mean Corpuscular Hemoglobin 30.6 pg (27.0-31.0); Mean Corpuscular Volume 86.4 fL (78.0-98.0); Mean Platelet Volume 7.1 fL (7.4-10.4); Platelet Count 128 thou/uL (130-400); RBC Distribution Width 13.8 % (11.5-14.5); Red Blood Cell (RBC) Count 3.01 mill/uL (4.20-5.40)
[2019-03-30] MEDS: Metoprolol Tartrate 50 MG TAB PO SCH (09:22)
[2019-03-30] MEDS: Liothyronine Sodium 5 MCG TAB PO SCH (09:22)
[2019-03-30] MEDS: Saccharomyces boulardii 250 MG CAP PO SCH (09:23)
--- NOTE | 2019-03-30 09:24 | PDOC.PALPN ---
Palliative Progress Note - Subjective Awake, appetite improved, diarrhea and nausea/vomiting currently resolved. Continues with pain to perineum. - Objective Vital Signs: Vital Signs - Most Recent Temp Pulse Resp BP Pulse Ox 98.3 F 104 H 12 130/75 97 03/30/19 03:29 03/30/19 03:29 03/30/19 03:29 03/30/19 03:29 03/30/19 03:29 - Physical Exam Constitutional: NAD HEENT: EOMI, moist MMs, sclera anicteric Respiratory: clear to auscultation bilateral, unlabored breathing Cardiovascular: RRR Gastrointestinal: continent, non-tender, positive bowel sounds Genitourinary: continent Musculoskeletal: no cyanosis, no clubbing, pulses present Neurology: moves all 4 limbs, no focal deficits, normal sensation Skin: cap refill <2 seconds, normal turgor Psychiatric: A&O x 3, normal affect - Assessment (1) Palliative care encounter Code(s): Z51.5 - ENCOUNTER FOR PALLIATIVE CARE Current Visit: Yes Status: Acute (2) Depressed Code(s): F32.9 - MAJOR DEPRESSIVE DISORDER, SINGLE EPISODE, UNSPECIFIED Current Visit: Yes Status: Acute (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, UNSPECIFIED Current Visit: Yes Status: Acute (4) Diarrhea Code(s): R19.7 - DIARRHEA, UNSPECIFIED Current Visit: Yes Status: Acute (5) Nausea vomiting and diarrhea Code(s): R11.2 - NAUSEA WITH VOMITING, UNSPECIFIED; R19.7 - DIARRHEA, UNSPECIFIED Current Visit: Yes Status: Acute - Plan Plan: Discussed continue with foods in small portions, avoid spicy foods and foods that cause aversion. Monitor constipation and utilize Mirilax Prn as needed. Teaching in relation to home remedy for mitigating discomfort to perineum Witch micaela pads to clean perineum Solarcaine spray after use of witch micaela pads [20] minutes spent on this encounter with >50% of the time in counseling and coordination of care. - ROS Constitutional: alert, other (improved appitite) ENT: other (negative for blurry vision, difficulity swallowing) Respiratory: other (denies shortness of breath, cough, congestion) Cardiology: other (negative for chest pain, palpitations) Gastrointestinal: other (negative for nausea, vomiting, diarrhea, cramping)
[2019-03-30] MEDS: Dextrose 5 % And 0.9 % NaCl 1,000 ML IV SCH (09:33)
[2019-03-30 12:27] VITALS: BP 132/78
--- NOTE | 2019-03-31 06:11 | PQF ---
[employer]er [employer] Reports [employer] [place] DONY HUNT [id number] CLINICAL DOCUMENTATION CLARIFICATION FORM: POST DISCHARGE Addendum to original discharge summary date: ____ Late entry note date: __ DATE: 03/31/2019 ATTN:DONY HUNT Please exercise your independent, professional judgment in responding to the clarification form. Clinical indicators are provided on the bottom of this form for your review Please check appropriate box(s): Kindly Provide Nausea with vomiting & diarrhea was due drug or not [ XX ] Nausea with vomiting & diarrhea was due drug [ ] Nausea with vomiting & diarrhea was not due drug [ ] Other diagnosis [ ] Unable to determine In addition, please specify: Present on Admission (POA): [ XX ] Yes [ ] No [ ] Unable to determine For continuity of documentation, please document condition throughout progress notes and discharge summary. Thank You. CLINICAL INDICATORS - SIGNS / SYMPTOMS / LABS Nausea and Vomiting she states she vomited all of Friday and continued to vomit 24 hrs - Documented in H&P on 03/15 by Brunilda Pizarro Once 5-FU pump is removed she tends to have persistent nausea and vomiting - Documented in H&P on 03/15 by Brunilda Pizarro Diarrhea ,patient has had persistent watery stools, she has been on antibiotics for UTI - Documented in H&P on 03/15 by Brunilda Pizarro she was started mitomycin and 5FU and radiation in January - Documented in Consult report on 03/16 by Eli Bell Diarrhea secondary to treatment - Documented in Consult report on 03/16 by Eli Bell RISKS: Anal Cancer Pancytopenia due to Chemotherapy UTI HTN Skin breakdown of perineum 2/2 radiation - Documented in Consult report on by Eli Bell neutropenia TREATMENT: patient require Multiple infusion IV - Documented in H&P on 03/15 by Brunilda Pizarro Continue with IV fluids given presumed dehydration from vomiting - Documented in H&P on 03/15 by Brunilda Pizarro Oncology consultation (This form is maintained as a part of the permanent medical record) 2014 [employer]. All Rights Reserved [email or web address] [not provided] MTDD
--- NOTE | 2019-03-31 11:46 | DIS ---
DATE OF ADMISSION: 03/15/2019 DATE OF DISCHARGE: 03/30/2019 DISCHARGE DIAGNOSES: 1. Nausea and vomiting secondary to chemotherapy. 2. Anal cancer. 3. Neutropenia. 4. Pancytopenia. 5. Hypokalemia. 6. Tachycardia. HOSPITAL COURSE: This patient is a 49-year-old female with anal cancer, undergoing treatments with chemotherapy through Oncology. She has also had some radiation therapy. She had a course of chemotherapy and subsequently developed significant nausea, and vomiting, which was similar to a prior course. According to Oncology, the patient had more of an adverse reaction to chemotherapy than most. The patient was subsequently admitted to the hospital with persistent nausea, vomiting, and concerns for dehydration. HOSPITAL COURSE: The patient was given maintenance IV fluids and p.r.n. antiemetics. She subsequently developed neutropenia and pancytopenia. These counts did ultimately recover; however, the patient had persistent nausea, vomiting and some diarrhea for a number of days. She was followed by Oncology and Palliative Care in order to help her with symptomatic management. She did develop some hypokalemia, which was repleted. Once her counts recovered, and several days later, the patient's nausea, vomiting, diarrhea resolved and she was slowly able to turn back to taking in some p.o.'s and her PPN was discontinued. Once the patient was back to eating adequately, she was felt to be stable for discharge to home. The patient had some recurrence of her baseline tachycardia, for which she had been previously treated and what she was adequately taking p.o.'s, resumed back on her p.o. metoprolol. PHYSICAL EXAMINATION: VITAL SIGN: On the day of discharge, temperature was 98.3, pulse 98, respirations 20, O2 saturation 95% on room air, BP is 130/77. GENERAL: She is awake, alert, oriented, pleasant, cooperative. HEART: Regular rate and rhythm. No murmurs, gallops, or rubs. LUNGS: Clear bilaterally. ABDOMEN: Soft, nontender, and nondistended. Positive bowel sounds. No masses. No organomegaly. EXTREMITIES: No cyanosis, clubbing, or edema. DISPOSITION: The patient is discharged to home. DIET: She is to have a regular diet as tolerated. ACTIVITY: Ad chelle. MEDICATIONS: She will be on; 1. Hydrocortisone. 2. Anusol HC p.r.n. Continue her other usual home medications to include; 1. Butalbital/aspirin/caffeine q.6 hours p.r.n. migraine. 2. Cytomel 15 mcg daily. 3. Synthroid 75 mcg daily. 4. Xanax 1 mg daily p.r.n. 5. Nexium 40 mg one p.o. daily. 6. Aquaphor ointment topical p.r.n. 7. Tramadol 50 mg q.i.d. p.r.n. 8. Lomotil p.r.n. 9. Zofran p.r.n. 10. Metoprolol 50 mg b.i.d. FOLLOWUP: She is to follow up with Dr. Dorita Miller in [address] Ashley Lo at the next available appointment. She can return to the hospital at any time should she have the need to do so. TIME SPENT: Total time in discharge activities was 39 minutes. Job ID: [id number]
== END 2019-03-30 12:41 | disposition home or self-care (01) | DRG 393 ==
LOC: PREINTOOBSV 13:56 → OBSVTOIN 14:12 → ONC 14:12 → 2NO 03-17 01:30 → ONC 03-20 10:42 → 2NO 03-26 17:48
PROVIDERS: ADMIT Internal Medicine; ATTEND Internal Medicine
PROC: 30233N1 Transfusion of Nonautologous Red Blood Cells into Peripheral Vein, Percutaneous Approach (ICD-10-PCS; principal; 2019-03-18)
DX: K52.1 Toxic gastroenteritis and colitis (principal); D61.810 Antineoplastic chemotherapy induced pancytopenia; I26.99 Other pulmonary embolism without acute cor pulmonale; C21.0 Malignant neoplasm of anus, unspecified; N39.0 Urinary tract infection, site not specified; E44.1 Mild protein-calorie malnutrition; D68.69 Other thrombophilia; E87.1 Hypo-osmolality and hyponatremia; R11.2 Nausea with vomiting, unspecified; E86.0 Dehydration; I10 Essential (primary) hypertension; F41.9 Anxiety disorder, unspecified; K21.9 Gastro-esophageal reflux disease without esophagitis; E03.9 Hypothyroidism, unspecified; R19.7 Diarrhea, unspecified; L59.8 Other specified disorders of the skin and subcutaneous tissue related to radiation; T45.1X5A Adverse effect of antineoplastic and immunosuppressive drugs, initial encounter; F32.9 Major depressive disorder, single episode, unspecified; Z90.710 Acquired absence of both cervix and uterus; Z91.040 Latex allergy status; Z79.899 Other long term (current) drug therapy; Z79.82 Long term (current) use of aspirin; Z88.8 Allergy status to other drugs, medicaments and biological substances; Z91.048 Other nonmedicinal substance allergy status; Z68.20 Body mass index [BMI] 20.0-20.9, adult; Z51.5 Encounter for palliative care; E87.6 Hypokalemia; E83.39 Other disorders of phosphorus metabolism; R50.81 Fever presenting with conditions classified elsewhere
CPT/HCPCS: 36415; 36430; 71046; 71275; 80048; 80053; 80202; 81001; 82248; 82565; 83605; 83615; 83630; 83735; 84100; 84484; 84550; 85007; 85014; 85018; 85025; 85027; 85049; 86850; 86900; 86901; 87040; 87045; 87046; 87086; 87324; 87328; 87329; 87427; 87449; 93005; 93010; A4217; J0692; J0696; J1447; J1642; J1650; J2060; J2270; J2405; J2550; J2997; J3370; J3475; J3480; J3490; J7042; J7050; P9016; Q0163; Q0164; Q0167; Q9967; S0028

== ENCOUNTER 2019-05-07 08:20 | Outpatient (CLI) | payer OTHER ==
--- NOTE | 2019-05-07 11:21 | PET ---
EXAM: PET/CT HISTORY: Malignant neoplasm of anal canal. Restaging examination after chemoradiation to evaluate for subseque nt therapy TECHNIQUE: PET scanning with CT attenuation correction was performed from the base of the brain to the proximal thighs following the intravenous administration of 12.4 millicuries [id number]. COMPARISON: 01/14/2019 FINDINGS: No gerard hypermetabolism is seen in the neck, chest, abdomen, pelvis, inguinal regions. No hypermetabolic pulmonary nodules, liver, adrenal or skeletal lesions are seen. There is increased FDG localization in the region of the anus with a current SUV of 3 (previously 10) . There is physiologic activity in the GI and tracts and the visualized portions of the brain. The CT scan used for attenuation correction demonstrates no evidence of pleural effusions or ascites. IMPRESSION: No evidence of metastatic disease.
== END 2019-05-07 08:21 | disposition home or self-care (01) ==
LOC: PET 08:20
PROVIDERS: ATTEND Internal Medicine Hematology & Oncology
DX: C21.0 Malignant neoplasm of anus, unspecified (principal)
CPT/HCPCS: 78815; A9552

== ENCOUNTER 2019-07-05 13:52 | Outpatient (CLI) | payer OTHER ==
--- NOTE | 2019-07-05 14:18 | RAD ---
XR Pelvis AP STANDARD HISTORY: Left hip pain FINDINGS: No fracture, bony destruction or dislocation is identified.
--- NOTE | 2019-07-05 14:18 | RAD ---
XR Hip Lt 2-3 View HISTORY: Left hip pain FINDINGS: No fracture, bony destruction or dislocation is identified.
== END 2019-07-05 13:53 | disposition home or self-care (01) ==
LOC: BICRAD 13:52
PROVIDERS: ATTEND Internal Medicine Hematology & Oncology
DX: M25.552 Pain in left hip (principal)
CPT/HCPCS: 72170

== ENCOUNTER 2019-10-06 13:05 | Outpatient (CLI) | payer OTHER ==
[2019-10-06 13:57] LABS: Estimated GFR-MDRD - POC Greater than 90
--- NOTE | 2019-10-06 14:54 | MRI ---
MR of the left hip with and without IV contrast INDICATION: History of prior radiation therapy due to rectal cancer with left hip pain since July 08. TECHNIQUE: Multiplanar multisequence MR images were obtained of the pelvis with and without contrast utilizing 12 cc of MultiHance. Comparisons are made with a prior PET/CT dated 05/07/2018, CT the chest, abdomen and pelvis dated 01/06/[address] the abdomen and pelvis dated 04/05/2015. FINDINGS: In review of the whole pelvis T1 and STIR images there is a 9 mm T2 hyperintense, T1 hypoin tense lesion within the right sacral ala on image 33 of series 4 and series 5 that demonstrated no focal area of increased metabolic uptake on the PET/CT in April 2019 and likely corresponds to a ve ry subtle lucent lesion with stippled internal calcifications and suspicious for a slightly atypical hemangioma or less likely a small low-grade chondroid lesion. This was likely present on the 2014 examination is likely benign. No additional overt marrow signal abnormality is seen involving the osseous structures of the left hip. Visualized intrapelvic contents reveal postprocedural change of a hysterectomy. Visualized aspects of the rectum appear within normal limits; however, this exam is not protocoled to fully evaluate the rectum for recurrent disease. No overt lymphadenopathy is seen within the left hemipelvis. There is a small amount of edema involving the left sub gluteus minimus and subgluteus medius trochanteric bursa is consistent with mild trochanteric bursitis. No iliopsoas bursitis is evident. No muscular at rophy is evident. The visualized left sciatic nerve is normal-appearing. No left-sided hip girdle muscular atrophy is evident. The rectus femoris and left hamstring origins appear within normal limit s. No abnormal enhancement is demonstrated. IMPRESSION: 1. No MR explanation for the patient's left hip pain outside of mild left hip trochanteric bursitis. 2. Small 9 mm T2 hyperintense, T1 hypointense lesion within the right sacral ala likely corresponds t o a well-circumscribed lucent lesion within the right sacral ala that has been present since 2014 likely reflecting a small benign atypical hemangioma or small low-grade chondroid lesion.
== END 2019-10-06 13:06 | disposition home or self-care (01) ==
LOC: BICMRI 13:05
PROVIDERS: ATTEND Internal Medicine Hematology & Oncology
DX: C21.1 Malignant neoplasm of anal canal (principal); M25.552 Pain in left hip; M70.62 Trochanteric bursitis, left hip; M53.3 Sacrococcygeal disorders, not elsewhere classified
CPT/HCPCS: 82565

== ENCOUNTER 2019-10-06 14:51 | Outpatient (CLI) | payer OTHER ==
--- NOTE | 2019-10-06 16:21 | MMO ---
Bilateral MAMMO Bilat Screen [facility]. CLINICAL HISTORY: Patient is 49 years old and is seen for screening. The patient has the following family history of breast cancer: 2 paternal aunts and paternal grandmother. The patient has a history of other cancer in December,. The patient has a history of bilateral Breast reduction in December,. VIEWS: The views performed were: bilateral craniocaudal with tomosynthesis; bilateral mediolateral oblique with tomosynthesis; bilateral exaggerated craniocaudal; and right mediolateral oblique. FILMS COMPARED: The present examination has been compared to [place] [facility] [place] 06/[place] 01/30/2018. This study has been interpreted with the assistance of computer-aided detection. MAMMOGRAM FINDINGS: The breasts are heterogeneously dense, which could obscure a lesion on mammography. Benign calcifications are noted bilaterally. There are no suspicious masses, suspicious calcifications, or new areas of architectural distortion. IMPRESSION: THERE IS NO MAMMOGRAPHIC EVIDENCE OF MALIGNANCY. A ROUTINE FOLLOW-UP MAMMOGRAM IN 1 YEAR IS RECOMMENDED. THE RESULTS OF THIS EXAM WERE SENT TO THE PATIENT. ACR BI-RADS Category 2 - Benign finding MAMMOGRAPHY NOTE: 1. A negative mammogram report should not delay a biopsy if a dominant of clinically suspicious mass is present. 2. Approximately 10% to 15% of breast cancers are not detected by mammography. 3. Adenosis and dense breasts may obscure an underlying neoplasm. Reported by: KATI VICK MD Electonically Signed: [id number]
== END 2019-10-06 14:52 | disposition home or self-care (01) ==
LOC: BICMAMMO 14:51
PROVIDERS: ATTEND Family Medicine
DX: Z12.31 Encounter for screening mammogram for malignant neoplasm of breast (principal); Z80.3 Family history of malignant neoplasm of breast; Z85.89 Personal history of malignant neoplasm of other organs and systems; Z98.82 Breast implant status
CPT/HCPCS: 77063; 77067

== ENCOUNTER 2021-09-04 12:33 | Outpatient (CLI) | payer BC | END 2021-09-04 12:34 | disposition home or self-care (01) | LOC: BICCT 12:33 | PROVIDERS: ATTEND Physician Assistant Medical | DX: C21.1 Malignant neoplasm of anal canal (principal); R19.7 Diarrhea, unspecified; R11.0 Nausea; R10.30 Lower abdominal pain, unspecified; D18.03 Hemangioma of intra-abdominal structures | CPT/HCPCS: 74177 ==

== ENCOUNTER 2022-08-27 14:39 | Outpatient (CLI) | payer BC | END 2022-08-27 14:40 | disposition home or self-care (01) | LOC: BICMAMMO 14:39 | PROVIDERS: ATTEND Family Medicine | DX: Z12.31 Encounter for screening mammogram for malignant neoplasm of breast (principal) | CPT/HCPCS: 77063; 77067 ==